=== PATIENT | male | born 1935 | race Caucasian/White ===

== ENCOUNTER 2016-08-20 15:49 | Inpatient (IN) | payer MEDICARE, OTHER ==
[2016-08-20] VITALS (7 sets, daily range): BP systolic 139–152; BP diastolic 75–82; PULSE 51–80; RESP 16–18; TEMP 97.7; O2SAT 96–98
[~2016-08-20 15:49] MED LIST: ATOR20TA15 PO; METO100T9 PO; NIFE90TA2 PO; ONETAB9 PO; PRAD75CA PO
[2016-08-20] MEDS ORDERED: MORPHINE SULFATE 4 MG/ML INJ IV PUSH ONE (16:15)
[2016-08-20] MEDS ORDERED: ONDANSETRON HCL 4 MG/2 ML VIAL IVP ONE (16:15)
[2016-08-20] MEDS ORDERED: SODIUM CHLORIDE 0.9% FLUSH 5 ML FLUSH IVF PRN (16:15)
[2016-08-20] MEDS ORDERED: ACETAMINOPHEN 325 MG TAB PO ONE (16:15)
--- NOTE | 2016-08-20 16:17 | PD ---
HPI Chief Complaint: Headache Time Seen by Provider: 15:59 Travel History International Travel<30 days: No Contact w/Intl Traveler<30days: No Traveled to known affect area: No History of Present Illness HPI The patient is a 81-year-old male who presents to the emergency department for headache. The patient states he developed a headache this morning, after awakening, when he was taking Neurontin pill. The patient states the headache started gradually, is located over the frontal aspect, was throbbing in nature. The patient went back to sleep and when he awakened the headache was worse. The onset of symptoms was approximately 7 AM. The patient denies any photophobia, diplopia, neck pain, nausea, or vomiting. The headache is waxing and waning, slightly improved now, when compared to 2-3 hours ago. The patient does have a history of previous CVA/TIA and takes Pradaxa . He denies any trauma to the head and denies any associated fever, chills, or sweats. Symptoms are moderate, slightly improved since earlier today, and no known exacerbating factors. 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) Psychiatric: No Reproductive: No Respiratory: No Immunizations Current: Yes Migraines: No Radiation Therapy: No Renal Failure: No Seizures: No Sickle Cell Disease: No Sleep Apnea: No Thyroid Disease: No Ulcer: No Past Surgical History Abdominal Surgery: Yes (APPENDECTOMY IN 3RD GRADE) AICD: No Arteriovenous Shunt: No Cardiac Surgery: No Ear Surgery: No Endocrine Surgery: No Eye Surgery: Yes (BILATERAL CATARACT EXTRACT) Genitourinary Surgery: No Gynecologic Surgery: No Insulin Pump: No Joint Replacement: No Oral Surgery: Yes (TONSILLECTOMY REMOVAL IN 3RD GRADE) Pacemaker: No Thoracic Surgery: No Other Surgery: Yes Social History Alcohol Use: No Tobacco Use: No Substance Use: No Allergies-Medications (Allergen,Severity, Reaction): Coded Allergies: Motrin (Verified Allergy, Severe, Hallucinations, 08/20/16) Penicillin (Verified Allergy, Severe, DIZZY, 08/20/16) Reported Meds & Prescriptions Reported Meds & Active Scripts Active Reported Gabapentin 300 Mg Cap 300 Mg PO TID One Daily For Men 50+ Adv (Multiple Vitamins W/ Minerals) 1 Tab Tab 1 Tab PO DAILY Metoprolol Succinate ER 24 HR (Metoprolol Succinate) 100 Mg Tab 100 Mg PO DAILY Nifedipine ER (Nifedipine) 90 Mg Tab 90 Mg PO DAILY Pradaxa (Dabigatran) 75 Mg Cap 75 Mg PO BID Atorvastatin (Atorvastatin Calcium) 20 Mg Tab 20 Mg PO DAILY Review of Systems Except as stated in HPI: all other systems reviewed are Neg General / Constitutional: No: Fever Eyes: No: Blurred Vision, Photophobia, Visual changes HENT: Positive: Headaches, No: Neck Pain Cardiovascular: No: Chest Pain or Discomfort Respiratory: No: Shortness of Breath Gastrointestinal: No: Nausea, Vomiting Musculoskeletal: No: Weakness Neurologic: Positive: Headache, Sensory Disturbance (chronic neuropathy of the lower extremities without acute changes) Physical Exam Narrative GENERAL: Awake, alert, pleasant 81-year-old male who appears his stated age and is in no acute respiratory distress. SKIN: Warm and dry. HEAD: Atraumatic. Normocephalic. EYES: Pupils equal and round. Pupils are 3 mm bilateral and reactive. EOMs are intact. Patient is able to see fingers at a distance of 2 feet without difficulty. ENT: No nasal bleeding or discharge. Mucous membranes pink and moist. NECK: Trachea midline. No JVD. No meningeal signs. CARDIOVASCULAR: Regular rate and rhythm. No murmur appreciated. RESPIRATORY: No accessory muscle use. Clear to auscultation. Breath sounds equal bilaterally. MUSCULOSKELETAL: No obvious deformities. No clubbing. No cyanosis. No edema. NEUROLOGICAL: Awake and alert. No obvious cranial nerve deficits. Motor grossly within normal limits. Normal speech. Nonfocal. No drift of the upper or lower extremities. Oriented 4. Sensation is symmetric on the upper and lower extremities to soft touch. PSYCHIATRIC: Appropriate mood and affect; insight and judgment normal. Data Data Last Documented VS Vital Signs Date Time Temp Pulse Resp B/P Pulse Ox O2 Delivery O2 Flow Rate FiO2 08/20/16 17:25 80 16 146/80 96 Room Air 08/20/16 15:58 97.7 Orders Complete Blood Count With Diff (08/20/16 16:06) Basic Metabolic Panel (Bmp) (08/20/16 16:06) Prothrombin Time / Inr (Pt) (08/20/16 16:06) Act Partial Throm Time (Ptt) (08/20/16 16:06) Ct Brain W/O Iv Contrast(Rout) (08/20/16 16:06) Ecg Monitoring (08/20/16 16:06) Iv Access Insert/Monitor (08/20/16 16:06) Oximetry (08/20/16 16:06) Sodium Chloride 0.9% Flush (Ns Flush) (08/20/16 16:15) Acetaminophen (Tylenol) (08/20/16 16:15) Ondansetron Inj (Zofran Inj) (08/20/16 16:15) Morphine Inj (Morphine Inj) (08/20/16 16:15) Type And Screen (08/20/16 16:58) Idarucizumab Inj (Praxbind Inj) (08/20/16 17:15) Labs Laboratory Tests Test 08/20/16 16:08 White Blood Count 7.4 TH/MM3 Red Blood Count 5.07 MIL/MM3 Hemoglobin 14.5 GM/DL Hematocrit 44.7 % Mean Corpuscular Volume 88.0 FL Mean Corpuscular Hemoglobin 28.6 PG Mean Corpuscular Hemoglobin 32.5 % Concent Red Cell Distribution Width 13.1 % Platelet Count 213 TH/MM3 Mean Platelet Volume 10.0 FL Neutrophils (%) (Auto) 70.0 % Lymphocytes (%) (Auto) 17.3 % Monocytes (%) (Auto) 7.8 % Eosinophils (%) (Auto) 3.8 % Basophils (%) (Auto) 1.1 % Neutrophils # (Auto) 5.1 TH/MM3 Lymphocytes # (Auto) 1.3 TH/MM3 Monocytes # (Auto) 0.6 TH/MM3 Eosinophils # (Auto) 0.3 TH/MM3 Basophils # (Auto) 0.1 TH/MM3 CBC Comment DIFF FINAL Differential Comment Prothrombin Time 11.1 SEC Prothromb Time International 1.0 RATIO Ratio Activated Partial 32.0 SEC Thromboplast Time Sodium Level 143 MEQ/L Potassium Level 3.8 MEQ/L Chloride Level 110 MEQ/L Carbon Dioxide Level 25.9 MEQ/L Anion Gap 7 MEQ/L Blood Urea Nitrogen 13 MG/DL Creatinine 1.50 MG/DL Estimat Glomerular Filtration 45 ML/MIN Rate Random Glucose 150 MG/DL Calcium Level 8.4 MG/DL MDM Medical Decision Making Medical Screen Exam Complete: Yes Emergency Medical Condition: Yes Medical Record Reviewed: Yes Interpretation(s) CT of the head reveals subacute bilateral hygroma fluid collections, subdural hematomas larger on the left than the right with a shift of midline from left-to -right of 1.1 cm. There may be an acute component on the left in the low frontal region. EKG reveals sinus bradycardia with a rate of 56. Nonspecific ST changes. Inverted T-wave in lead 3. Last Impressions Head CT 08/20/16 1606 Signed Impressions: Service Date/Time: Saturday, August 20, 2016 16:42 - CONCLUSION: Subacute bilateral hygromas fluid collections subdural hematomas larger on the left than the right with a shift of midline from left to right of 1.1 cm. There may be an acute component on the left in the low frontal region Andrea Marcial MD Laboratory Tests Test 08/20/16 16:08 White Blood Count 7.4 TH/MM3 Red Blood Count 5.07 MIL/MM3 Hemoglobin 14.5 GM/DL Hematocrit 44.7 % Mean Corpuscular Volume 88.0 FL Mean Corpuscular Hemoglobin 28.6 PG Mean Corpuscular Hemoglobin 32.5 % Concent Red Cell Distribution Width 13.1 % Platelet Count 213 TH/MM3 Mean Platelet Volume 10.0 FL Neutrophils (%) (Auto) 70.0 % Lymphocytes (%) (Auto) 17.3 % Monocytes (%) (Auto) 7.8 % Eosinophils (%) (Auto) 3.8 % Basophils (%) (Auto) 1.1 % Neutrophils # (Auto) 5.1 TH/MM3 Lymphocytes # (Auto) 1.3 TH/MM3 Monocytes # (Auto) 0.6 TH/MM3 Eosinophils # (Auto) 0.3 TH/MM3 Basophils # (Auto) 0.1 TH/MM3 CBC Comment DIFF FINAL Differential Comment Prothrombin Time 11.1 SEC Prothromb Time International 1.0 RATIO Ratio Activated Partial 32.0 SEC Thromboplast Time Sodium Level 143 MEQ/L Potassium Level 3.8 MEQ/L Chloride Level 110 MEQ/L Carbon Dioxide Level 25.9 MEQ/L Anion Gap 7 MEQ/L Blood Urea Nitrogen 13 MG/DL Creatinine 1.50 MG/DL Estimat Glomerular Filtration 45 ML/MIN Rate Random Glucose 150 MG/DL Calcium Level 8.4 MG/DL Differential Diagnosis Differential diagnosis includes migraine, tension headache, temporal arteritis, intracranial hemorrhage, subarachnoid hemorrhage, subdural hemorrhage. Narrative Course IV was established, labs were drawn and sent, and the patient was placed on cardiac telemetry monitoring and continuous pulse oximetry monitoring. CT of the brain was ordered. The patient was administered morphine and Zofran. PT/ INR and CBC were sent to lab. Platelets are unremarkable. The patient is on Pradaxa, CT does reveal subacute bilateral hygroma fluid collections, subdural hematomas, which shift of 1.1 cm and an acute on chronic component. I discussed the patient with the on-call neurosurgeon, Dr. Aguilar, who requests transfer to the intensive surgical care unit at [facility], admission to the critical care service, with consultation to the neurosurgical service. After discussion, as agreed the patient would receive Praxbind. A call was placed to the key worker for admission. I discussed the patient with Dr. Gastelum who agrees with admission. Critical Care Narrative Aggregate critical care time was 35 minutes. Time to perform other separately billable procedures was not included in the critical care time. My time did not include minutes spent treating any other patients simultaneously or on activities that did not directly contribute to the patient's treatment. The services I provided to this patient were to treat and/or prevent clinically significant deterioration that could result in: Herniation, hypoxia, anoxia, . I provided critical care services requiring my management, as noted below: Chart data review, documentation time, medication orders and management, vital sign assessments/reviewing monitor data, ordering and reviewing lab tests, ordering and interpreting/reviewing x-rays and diagnostic studies, care of the patient and discussion of the patient with the admitting physicians. Physician Communication Physician Communication I discussed the patient with Dr. Gastelum who agrees with admission. I discussed the patient with Dr. Aguilar who recommends admission to the key worker with consultation to neurosurgery. Diagnosis Primary Impression: Subdural hematoma, acute Admitting Information Admitting Physician Requests: Admit Condition: Stable Tomer Candelario MD Aug 20, 2016 16:17
[2016-08-20] MEDS ORDERED: GABA300C5 PO (16:20)
[2016-08-20 16:21] LABS: AUTOMATED NEUTROPHIL # 5.1 TH/MM3 (1.8-7.7); BASOPHIL # 0.1 TH/MM3 (0-0.2); BASOPHIL % 1.1 % (0.0-2.0); EOSINOPHIL # 0.3 TH/MM3 (0-0.4); EOSINOPHIL % 3.8 % (0.0-4.0); HEMATOCRIT 44.7 % (39.0-51.0); HEMO FLAGS DIFF FINAL; LYMPH % 17.3 % (9.0-44.0); LYMPHOCYTE # 1.3 TH/MM3 (1.0-4.8); MEAN CORPUSCULAR HEMOGLOBIN 28.6 PG (27.0-34.0); MEAN CORPUSCULAR HGB CONC 32.5 % (32.0-36.0); MONO % 7.8 % (0.0-8.0); PLATELET COUNT 213 TH/MM3 (150-450); RED BLOOD COUNT 5.07 MIL/MM3 (4.50-5.90); RED CELL DISTRIBUTION WIDTH 13.1 % (11.6-17.2); WHITE BLOOD COUNT 7.4 TH/MM3 (4.0-11.0)
[2016-08-20 16:41] LABS: POTASSIUM 3.8 MEQ/L (3.5-5.1)
[2016-08-20 16:49] LABS: BICARBONATE 25.9 MEQ/L (21.0-32.0)
--- NOTE | 2016-08-20 17:03 | RADHPO ---
EXAM DATE/TIME: 08/20/2016 16:42 [facility] COMPARISON: CT BRAIN W/O CONTRAST, August 07, 2015, 19:47. MRI BRAIN W/O CONTRAST, July 12, 2016, 19:00. INDICATIONS : Frontal headache beginning today. RADIATION DOSE: 61.22 CTDIvol (mGy) MEDICAL HISTORY : Cerebrovascular disease. SURGICAL HISTORY : Bilateral cataract extraction. ENCOUNTER: Initial ACUITY: 1 day PAIN SCALE: 6/10 LOCATION: frontal TECHNIQUE: Multiple contiguous axial images were obtained of the head. Using automated exposure control and adj ustment of the mA and/or kV according to patient size, radiation dose was kept as low as reasonably a chievable to obtain optimal diagnostic quality images. FINDINGS: There are bilateral hygromas fluid collections slightly less dense than rodgers matter closer to the gerardo p white matter. On the right this is a frontal and posterior frontal maximally 1 cm in width and on t he left larger extending from the temporal region up on to the vertex 1.5 cm in width. There is shift of the midline left to right L1 0.1 cm. Suggestion that there may be an acute component in the low f rontal region on the left there CONCLUSION: Subacute bilateral hygromas fluid collections subdural hematomas larger on the left than the right wi th a shift of midline from left to right of 1.1 cm. There may be an acute component on the left in th e low frontal region Andrea Marcial MD on August 20, 2016 at 17:00 Board Certified Radiologist. This report was verified electronically.
[2016-08-20] MEDS ORDERED: IDARUcizUMAB INJ 100 ML IV ONE (17:15)
[2016-08-20 17:23] LABS: PROTHROMBIN TIME - PATIENT 11.1 SEC (9.8-11.6)
[2016-08-20] MEDS ORDERED: ACETAMINOPHEN/HYDROcodone 325 MG/5 MG TAB PO PRN (18:45)
[2016-08-20] MEDS ORDERED: SENNOSIDES 8.6 MG TAB PO PRN (18:45)
[2016-08-20] MEDS ORDERED: niCARdipine INJ 25 MG in SODIUM CHLOR 0.9% 250 ML INJ 250 ML IV SCH (18:45)
[2016-08-20] MEDS ORDERED: SODIUM CHLORIDE 0.9% FLUSH 5 ML FLUSH IV FLUSH PRN (18:45)
[2016-08-20] MEDS: SODIUM CHLORIDE 23.4% INJ 188 MEQ in SODIUM CHLOR 0.9% 1000 ML INJ 1,000 ML IV SCH ×3 (18:45→22:22)
[2016-08-20] MEDS ORDERED: CHLORHEXIDINE GLUCONATE 2 % 1 PACK (2 CLOTHS) TOP PRN (18:45)
[2016-08-20] MEDS ORDERED: LABETALOL HCL 100 MG/20 ML VIAL IV PUSH PRN (18:45)
[2016-08-20] MEDS ORDERED: ACETAMINOPHEN 325 MG TAB PO PRN (18:45)
[2016-08-20] MEDS ORDERED: ONDANSETRON HCL 4 MG/2 ML VIAL IV PRN (18:45)
[2016-08-20] MEDS ORDERED: MISCELLANEOUS NURSING INFORMATION XX SCH (18:45)
[2016-08-20] MEDS ORDERED: RESP: ALBUTEROL 2.5 MG/IPRATROPIUM 0.5 MG NEB (PRN) INH (18:45)
--- NOTE | 2016-08-20 18:48 | HHI.HP ---
HPI Service Critical Care Medicine Primary Care Physician Milton Garcia MD Admission Diagnosis acute on chronic subdural/hygroma with shift, coagulopathy Diagnosis: (1) Subdural hematoma, acute Diagnosis: Principal (2) Cerebrovascular accident (CVA) Diagnosis: Principal (3) Left leg numbness Diagnosis: Principal (4) Hypertension Diagnosis: Principal (5) A-fib Diagnosis: Principal (6) Hyperlipidemia Diagnosis: Principal (7) Arthritis Diagnosis: Principal Chief Complaint: Headache Travel History International Travel<30 Days: No Contact w/Intl Traveler <30 Da: No Traveled to Known Affected Are: No History of Present Illness This is a 81-year-old male. Date of admission 08/20/2016. Past medical history includes prior right occipital's lobe CVA 08/09 followed by left MCA CVA likely embolic with petechial hemorrhage 1 week later. At that time patient was started on Pradaxa per cardiology. Also history of hypertension, osteoarthritis, a fibrillation and cataracts. He also had a left lower quadrant quadrantanopsia. This is resolved. He presents to [facility] secondary to gradual onset of diffuse throbbing headache this morning, after awakening, when he was taking Neurontin pill. The patient states the headache started gradually, is located over the frontal aspect, was throbbing in nature. The patient went back to sleep and when he awakened the headache was worse.. No photophobia, diplopia, neck pain, nausea, or vomiting. CT head revealed bilateral subdural hygromas with possible acute component in left frontal region. There is a 1.1 cm shift left to right. He received 5 mg of idarucizumab in the ED. Dr. Aguilar was notified and request head of ict and the patient he will consult. No focal neurological deficits noted on examination Review of Systems Constitutional: COMPLAINS OF: Fatigue, DENIES: Fever, Weight gain Endocrine: DENIES: Polydipsia, Polyuria Eyes: DENIES: Blurred vision, Vision loss, Double Vision Ears, nose, mouth, throat: DENIES: Tinnitus, Sinus Pain, Odynophagia Respiratory: DENIES: Apneas, Wheezing, Hemoptysis, Sputum production Cardiovascular: DENIES: Chest pain, Lower Extremity Edema, Claudication Gastrointestinal: DENIES: Abdominal pain Genitourinary: DENIES: Urinary incontinence, Urgency, Hematuria Musculoskeletal: COMPLAINS OF: Back pain, DENIES: Joint pain, Joint Swelling Integumentary: DENIES: Abnormal pigmentation Hematologic/lymphatic: DENIES: Bruising Immunologic/allergic: DENIES: Eczema Neurologic: COMPLAINS OF: Headache, DENIES: Localized weakness, Paresthesias, Seizures Psychiatric: DENIES: Anxiety, Confusion Past Family Social History Allergies: Coded Allergies: Motrin (Verified Allergy, Severe, Hallucinations, 08/20/16) Penicillin (Verified Allergy, Severe, DIZZY, 08/20/16) Past Medical History Cataracts History right occipital lobe CVA 08/09 History of left MCA CVA with petechial hemorrhages right lobe 08/09 Hypertension Dyslipidemia Osteo arthritis Chronic atrial fibrillation Past Surgical History T&A Cataracts Appendectomy Reported Medications Pradaxa 75 mg by mouth twice a day Atorvastatin 20 mg by mouth daily. Nifedipine 90 mg by mouth daily. Neurontin 300 mg by mouth 3 times a day Metoprolol 100 mg by mouth daily Active Ordered Medications Reviewed in EMR Family History Mother 96 of old age Father age 60 gastric ulcers Social History No tobacco, alcohol or IV drug use Physical Exam Vital Signs Vital Signs Date Time Temp Pulse Resp B/P Pulse Ox O2 Delivery O2 Flow Rate FiO2 08/20/16 18:40 51 16 152/79 96 Room Air 08/20/16 18:40 16 08/20/16 18:40 16 08/20/16 17:25 80 16 146/80 96 Room Air 08/20/16 16:35 57 18 139/76 97 Room Air 08/20/16 15:58 96 08/20/16 15:58 97.7 72 16 140/75 98 Physical Exam GENERAL: 80-year-old male, critically ill currently resting in bed in no acute distress SKIN: Warm and dry. HEAD: Atraumatic. Normocephalic. EYES: Pupils equal and round. No scleral icterus. No injection or drainage. ENT: No nasal bleeding or discharge. Mucous membranes pink and moist. NECK: Trachea midline. No JVD. CARDIOVASCULAR: Bradycardiac, IR. S1, S2 no S4. RESPIRATORY: Clear to auscultation. Breath sounds equal bilaterally. GASTROINTESTINAL: Abdomen soft, non-tender, nondistended. Hypoactive bowel sounds. MUSCULOSKELETAL: Extremities without significant peripheral edema. No obvious deformities. NEUROLOGICAL: Awake and alert. No obvious cranial nerve deficits. Motor grossly within normal limits. Five out of 5 muscle strength in the arms and legs. Decreased sensation light touch and pinprick in feet. No pronator drift. Laboratory Laboratory Tests Test 08/20/16 16:08 White Blood Count 7.4 Red Blood Count 5.07 Hemoglobin 14.5 Hematocrit 44.7 Mean Corpuscular Volume 88.0 Mean Corpuscular Hemoglobin 28.6 Mean Corpuscular Hemoglobin 32.5 Concent Red Cell Distribution Width 13.1 Platelet Count 213 Mean Platelet Volume 10.0 Neutrophils (%) (Auto) 70.0 Lymphocytes (%) (Auto) 17.3 Monocytes (%) (Auto) 7.8 Eosinophils (%) (Auto) 3.8 Basophils (%) (Auto) 1.1 Neutrophils # (Auto) 5.1 Lymphocytes # (Auto) 1.3 Monocytes # (Auto) 0.6 Eosinophils # (Auto) 0.3 Basophils # (Auto) 0.1 CBC Comment DIFF FINAL Differential Comment Prothrombin Time 11.1 Prothromb Time International 1.0 Ratio Activated Partial 32.0 Thromboplast Time Sodium Level 143 Potassium Level 3.8 Chloride Level 110 Carbon Dioxide Level 25.9 Anion Gap 7 Blood Urea Nitrogen 13 Creatinine 1.50 Estimat Glomerular Filtration 45 Rate Random Glucose 150 Calcium Level 8.4 Result Diagram: 08/20/16 1608 08/20/16 1608 Imaging Last Impressions Head CT 08/20/16 1606 Signed Impressions: Service Date/Time: Saturday, August 20, 2016 16:42 - CONCLUSION: Subacute bilateral hygromas fluid collections subdural hematomas larger on the left than the right with a shift of midline from left to right of 1.1 cm. 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 [id number] shift 1.[address] Aguilar/neurosurgery made aware. Wishes transfer to [facility] as consulted. Goal maintain systolic blood pressure less than 150. Neuro checks Keppra 500 mg IV twice a day 7 day seizure prophylaxis Holding Neurontin 300 mg 3 times a day for peripheral neuropathy. Dr. Doran is his neurologist. Follow-up head CT in a.m. 08/21 Pradaxa reversed. See heme CV: Hypertension Dyslipidemia Goal keep systolic blood pressure was 150. Home medications nifedipine 90 mg daily, metoprolol 100 mg daily for hypertension. Hold medication atorvastatin 20 mg by mouth daily for dyslipidemia. As needed Cardene drip/hydralazine/labetalol/Nitropaste to maintain systolic blood pressure less than 150. Follow up EKG/point. Resp: Nasal cannula to maintain saturations greater than equal to 92% Incentive spirometry while awake Follow-up chest x-ray GI: Patient is currently nothing by mouth Protonix for GI prophylaxis Colace/as needed Senokot for bowel regimen : Folate indicated for accurate I's and O's in a critically ill patient Endo: Sliding-scale insulin with Accu-Cheks to maintain euglycemia. Renal: Acute kidney injury Creatinine currently 1.5 . Recheck BMP in a.m. Heme: Chronic Pradaxa use Status post 5 g Praxbind in [place] ED. Follow-up coags ID: Monitor for infection Msk: PT evaluate and treat FEN: Replace electrolyte as clinically indicated Access - Utilize peripheral IV. Central line if indicated Prophylaxis - GI - Protonix - DVT - SCD/pharmacological prophylaxis contraindicated with hemorrhage Critical Care: The total critical care time was 55 minutes. Time to perform other separately billable procedures was not included in the critical care time. Code Status Full code Discussed Condition With ED physician Dr. Candelario. Patient. Care plan discussed and questions answered Problem Qualifiers (1) A-fib: Qualified Code: I48.2 - Chronic atrial fibrillation (2) Hyperlipidemia: Qualified Code: E78.5 - Hyperlipidemia, unspecified hyperlipidemia type Derrick Gastelum MD Aug 20, 2016 18:48
[2016-08-20] MEDS ORDERED: SODIUM CHLOR 0.9% 1000 ML INJ 1,000 ML IV SCH (19:00)
[2016-08-20] MEDS: DOCUSATE SODIUM 100 MG CAP PO SCH (21:00)
[2016-08-20] MEDS: levETIRAcetam INJ 500 MG in SODIUM CHLORIDE 0.9% INJ 100 ML IV SCH (21:00)
[2016-08-20] MEDS ORDERED: SODIUM CHLORIDE 0.9% FLUSH 5 ML FLUSH IV FLUSH SCH (21:00)
[2016-08-21] VITALS (8 sets, daily range): BP systolic 111–152; BP diastolic 51–73; PULSE 50–78; RESP 14–21; TEMP 96.7–98.3; O2SAT 95–100
[2016-08-21] MEDS: CHLORHEXIDINE GLUCONATE 2 % 1 PACK (2 CLOTHS) TOP SCH (04:00)
[2016-08-21 05:41] LABS: APTT (PATIENT) 24.6 SEC (24.3-30.1); PROTHROMBIN TIME - PATIENT 10.6 SEC (9.8-11.6)
[2016-08-21 05:52] LABS: ALT (GPT) 21 U/L (12-78); ANION GAP 7 MEQ/L (5-15); AST (GOT) 16 U/L (15-37); BLOOD UREA NITROGEN 12 MG/DL (7-18); CHLORIDE 110 MEQ/L (98-107); GLOMERULAR FILTRATION RATE 51 ML/MIN (>89); MAGNESIUM 2.3 MG/DL (1.5-2.5); POTASSIUM 3.9 MEQ/L (3.5-5.1); SODIUM (NA) 143 MEQ/L (136-145)
[2016-08-21 05:55] LABS: ALKALINE PHOSPHATASE 63 U/L (45-117); TOTAL BILIRUBIN ADULT 0.2 MG/DL (0.2-1.0)
[2016-08-21] MEDS: levETIRAcetam INJ 500 MG in SODIUM CHLORIDE 0.9% INJ 100 ML IV SCH ×3 (08:21→23:05)
[2016-08-21] MEDS: DOCUSATE SODIUM 100 MG CAP PO SCH ×2 (08:21→19:56)
[2016-08-21] MEDS: MORPHINE SULFATE 4 MG/ML INJ IV PRN ×2 (08:22→10:17)
--- NOTE | 2016-08-21 08:40 | RADRPT ---
EXAM DATE/TIME: 08/21/2016 04:31 [facility] COMPARISON: MRI BRAIN W/O CONTRAST, July 12, 2016, 19:00. CT BRAIN W/O CONTRAST, August 20, 2016, 16:42. INDICATIONS : Follow up right occipital stroke. RADIATION DOSE: 56.35 CTDIvol (mGy) MEDICAL HISTORY : Cerebrovascular disease. SURGICAL HISTORY : None. ENCOUNTER: Subsequent ACUITY: 3 weeks PAIN SCALE: 0/10 LOCATION: cranial TECHNIQUE: Multiple contiguous axial images were obtained of the head. Using automated exposure control and adj ustment of the mA and/or kV according to patient size, radiation dose was kept as low as reasonably a chievable to obtain optimal diagnostic quality images. FINDINGS: Today's exam is compared to the prior study. There is a stable right-sided subdural hygroma with appr oximately 9 mm of separation. There continues to be a left-sided subdural hygroma with approximately 2 cm of separation. Components of chronic and acute/subacute blood are seen in both subdural collecti ons. The acute/subacute hemorrhage components in the left subdural collection appears to be increased compared to the prior study. There continues to be a focal small epidural hematoma along the left fr ontal lobe area. The ventricles are normal in size and stable. There continues to be mass effect and midline shift to the right by approximately 1.2 cm. The posterior fossa is stable and unremarkable. T here continues to be an area of decreased density in the left occipital lobe as well as the right occ ipital lobe characteristic for some focal old infarcts. CONCLUSION: 1. Bilateral subdural hygromas/hematomas with chronic and acute/subacute blood products noted in both subdural collections, left greater than right. The acute/subacute blood products in the left subdura l hematoma appears to be increased compared to the prior exam. 2. Stable small left epidural hematoma along the left frontal lobe area. 3. There continues to be mass effect and midline shift to the right by approximately 1.2 cm. 4. Focal areas of decreased density in both occipital lobes characteristic of subacute to chronic occ ipital lobe infarct. Tye Santiago MD on August 21, 2016 at 8:28 Board Certified Radiologist. This report was verified electronically.
[2016-08-21] MEDS ORDERED: PANTOPRAZOLE SODIUM 40 MG VIAL IV SCH (09:00)
[2016-08-21] MEDS: ARTIFICIAL TEARS OPTH SOLN 15 ML BTL EACH EYE SCH ×3 (09:00→18:00)
[2016-08-21] MEDS: hydrALAZINE HCL 20 MG/ML VIAL IV PUSH PRN ×2 (10:25→13:56)
--- NOTE | 2016-08-21 10:46 | HHI.CCPN ---
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 Subsequently started on Pradaxa per cardiology. Also history of hypertension, osteoarthritis, atrial fibrillation and cataracts. He also had a left lower quadrant quadrantanopsia, now resolved. He presents to [facility] secondary to gradual onset of diffuse throbbing headache this morning, after awakening, when he was taking Neurontin pill. The patient states the headache started gradually, is located over the frontal aspect, was throbbing in nature. No photophobia, diplopia, neck pain, nausea, or vomiting. CT head revealed bilateral subdural hygromas with possible acute component in left frontal region. There is a 1.1 cm shift left to right. He received 5 mg of idarucizumab in the ED. Dr. Aguilar was notified and request director supplier quality. 08/21: Worsening headache and lethargy today. Repeat Head CT shows active/acute new blood accumulation. Off dabigatran for > 24 hours. Objective Vital Signs Date Time Temp Pulse Resp B/P Pulse Ox O2 Delivery O2 Flow Rate FiO2 08/21/16 09:26 99 08/21/16 09:22 18 08/21/16 08:00 Room Air 08/21/16 08:00 98.3 50 129/73 08/20/16 20:12 21 Result Diagram: 08/20/16 1608 08/21/16 0500 Imaging Last Impressions Head CT 08/20/16 1606 Signed Impressions: Service Date/Time: Saturday, August 20, 2016 16:42 - CONCLUSION: Subacute bilateral hygromas fluid collections subdural hematomas larger on the left than the right with a shift of midline from left to right of 1.1 cm. There may be an acute component on the left in the low frontal region Andrea Marcial MD Objective Remarks GENERAL: 80-year-old male, critically ill currently resting in bed. SKIN: Warm and dry. HEAD: Atraumatic. Normocephalic. EYES: Pupils equal and round. ENT: Mucous membranes pink and moist. NECK: Trachea midline. Airway is patent without obstruction. CARDIOVASCULAR: Bradycardiac, irreg irreg S1, S2. No JVD. RESPIRATORY: Clear, no wheezes or crackles. Breath sounds equal bilaterally. GASTROINTESTINAL: Abdomen soft, non-tender, nondistended. Active bowel sounds. Benign. MUSCULOSKELETAL: Extremities without significant peripheral edema. No obvious deformities. Well perfused. NEUROLOGICAL: Lethargic, sluggish movement, delayed speech. Motor grossly diminished. 3 out of 5 muscle strength in the arms and legs. Decreased sensation light touch and pinprick in feet. Patellar DTRs absent. 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 Rcka-zy-[id number] shift 1.[address] Aguilar/neurosurgery made aware. Wishes transfer to [facility] as consulted. Goal maintain systolic blood pressure less than 150. Neuro checks Keppra 500 mg IV twice a day 7 day seizure prophylaxis Holding Neurontin 300 mg 3 times a day for peripheral neuropathy. Dr. Doran is his neurologist. Follow-up head CT in a.m. 08/21 Pradaxa reversed. See heme. Deteriorating mental status 08/21 Larger hematoma left hemisphere with increased shift 08/21 CV: Hypertension Dyslipidemia Goal keep systolic blood pressure was 150. Home medications nifedipine 90 mg daily, metoprolol 100 mg daily for hypertension. Hold medication atorvastatin 20 mg by mouth daily for dyslipidemia. As needed Cardene drip/hydralazine/labetalol/Nitropaste to maintain systolic blood pressure less than 150. Follow up EKG/point. Resp: Nasal cannula to maintain saturations greater than equal to 92% Incentive spirometry while awake Follow-up chest x-ray GI: Patient is currently nothing by mouth Protonix for GI prophylaxis Colace/as needed Senokot for bowel regimen : Dominique to CBD indicated for accurate I's and O's in a critically ill patient Endo: Sliding-scale insulin with Accu-Cheks to maintain euglycemia. Renal: Acute kidney injury Creatinine currently 1.5 . Recheck BMP Heme: Chronic Pradaxa use Status post 5 g Praxbind in [facility]. Follow-up coags ID: Monitor for infection Msk: PT evaluate and treat FEN: Replace electrolyte as clinically indicated Access - Utilize peripheral IV. Central line if indicated Prophylaxis - GI - Protonix - DVT - SCD/pharmacological prophylaxis contraindicated with hemorrhage Overall impression: Critically ill and deteriorating neurological function. Subdural blood is increasing and requires urgent decompression. Critical care 44 mins Shaheen Acosta MD Aug 21, 2016 10:46
[2016-08-21] MEDS ORDERED: THROMBIN (TOPICAL) 5,000 UNIT VIAL ONE (10:53)
[2016-08-21] MEDS ORDERED: LIDOCAINE 1%/EPINEPHrine 1:100,000 SOLN 30 ML VIAL ONE (10:53)
--- NOTE | 2016-08-21 10:53 | PD.CONS ---
[facility] Service Neurosurg Consult Requested By Dr Gastelum Reason for Consult Subdiral hematoma Primary Care Physician Milton Garcia MD History of Present Illness This is a 81-year-old male with history of a prior right occipital's lobe infarction followed by left MCA hemorrhagic CVA 1 week later. At that time he was started on Pradaxa by cardiology, history of arterial hypertension, osteoarthritis, atrial fibrillation and cataracts. He presents to [facility] secondary to gradual onset of diffuse throbbing headaches, worsening. He reports that the the headaches started gradually, located over the frontal aspect,throbbing in nature. No seizure activity. no tobgue bitting. No incontinence of stool or urine. Denies photophobia, diplopia, neck pain, nausea , or vomiting. CT head revealed bilateral subdural hematomas with possible acute component in the left side. There is a 1.1 cm shift left to right. He received 5 mg of idarucizumab in the ED. No focal neurological deficits noted on examination. Neurosurgical consultation was requested. Review of Systems Constitutional: COMPLAINS OF: Fatigue, DENIES: Fever, Weight gain Endocrine: DENIES: Polydipsia, Polyuria Eyes: DENIES: Blurred vision, Vision loss, Double Vision Ears, nose, mouth, throat: DENIES: Tinnitus, Sinus Pain, Odynophagia Respiratory: DENIES: Apneas, Wheezing, Hemoptysis, Sputum production Cardiovascular: DENIES: Chest pain, Lower Extremity Edema, Claudication Gastrointestinal: DENIES: Abdominal pain Genitourinary: DENIES: Urinary incontinence, Urgency, Hematuria Musculoskeletal: COMPLAINS OF: Back pain, DENIES: Joint pain, Joint Swelling Integumentary: DENIES: Abnormal pigmentation Hematologic/lymphatic: DENIES: Bruising Immunologic/allergic: DENIES: Eczema Neurologic: COMPLAINS OF: Headache, DENIES: Localized weakness, Paresthesias, Seizures Psychiatric: DENIES: Anxiety, Confusion Past Family Social History Allergies: Coded Allergies: Motrin (Verified Allergy, Severe, Hallucinations, 08/20/16) Penicillin (Verified Allergy, Severe, DIZZY, 08/20/16) Past Medical History Cataracts History right occipital lobe CVA 08/09 History of left MCA CVA with petechial hemorrhages right lobe 08/09 Hypertension Dyslipidemia Osteo arthritis Chronic atrial fibrillation Past Surgical History T&A Cataracts Appendectomy Reported Medications Pradaxa 75 mg by mouth twice a day Atorvastatin 20 mg by mouth daily. Nifedipine 90 mg by mouth daily. Neurontin 300 mg by mouth 3 times a day Metoprolol 100 mg by mouth daily Active Ordered Medications Current Medications IV Flush (NS Flush) 2 ml UNSCH PRN IVF FLUSH AFTER USING IV ACCESS; Start 08/20 at 16:15 Acetaminophen (Tylenol) 650 mg ONCE ONCE PO Last administered on 08/20/16 16: 32; Start 08/20/16 at 16:15; Stop 08/20/16 at 16:16; Status DC Ondansetron HCl (Zofran Inj) 4 mg ONCE ONCE IVP Last administered on 16:31; Start 08/20/16 at 16:15; Stop 08/20/16 at 16:16; Status DC Morphine Sulfate 4 mg 4 mg ONCE ONCE IV PUSH Last administered on 08/20/16 16 :32; Start 08/20/16 at 16:15; Stop 08/20/16 at 16:16; Status DC Idarucizumab 100 ml @ 300 mls/hr ONCE ONCE IV Last administered on 08/20/16 18:24; Start 08/20/16 at 17:15; Stop 08/20/16 at 17:34; Status DC Sodium Chloride 188 meq/Sodium Chloride 1,047 ml @ 40 mls/hr Q24H IV Last administered on 08/20/16 22:22; Start 08/20/16 at 18:45 Nicardipine HCl/ Sodium Chloride (Cardene Inj/NS 250 ml Inj) 260 ml @ 0 mls/hr TITRATE IV ; Start 08/20/16 at 18:45 Hydralazine HCl (Apresoline Inj) 10 mg Q1HR PRN IV PUSH SBP>150, DBP>90 Last administered on 08/21/16 10:25; Start 08/20/16 at 18:45 Labetalol HCl 10 mg 10 mg Q1HR PRN IV PUSH SBP>150, DBP>90, HR>65; Start at 18:45 Sodium Chloride (NS 1000 ml Inj) 1,000 ml @ 84 mls/hr [id number] IV Last administered on 08/20/16 20:50; Start 08/20/16 at 19:00 IV Flush (NS Flush) 2 ml UNSCH PRN IV FLUSH FLUSH AFTER USING IV ACCESS; Start 08/20/16 at 18:45 IV Flush (NS Flush) 2 ml BID IV FLUSH Last administered on 08/20/16 21:00; Start 08/20/16 at 21:00 Acetaminophen (Tylenol) 650 mg Q6H PRN PO PAIN AND/OR FEVER >101F; Start at 18:45 Acetaminophen/ Hydrocodone Bitart ([place] 5-325 Mg) 1 tab Q4H PRN PO PAIN SCALE 1 TO 5 Last administered on 08/21/16 08:22; Start 08/20/16 at 18:45 Morphine Sulfate (Morphine Inj) 2 mg Q2H PRN IV PAIN SCALE 6 TO 10 Last administered on 08/21/16 10:17; Start 08/20/16 at 18:45 Pantoprazole Sodium (Protonix Inj) 40 mg DAILY IV Last administered on 08:21; Start 08/21/16 at 09:00 Artificial Tears (Tears Naturale Opth Soln) 1 drop TID EACH EYE ; Start at 09:00 Ondansetron HCl (Zofran Inj) 4 mg Q6H PRN IV NAUSEA OR VOMITING; Start at 18:45 Docusate Sodium (Colace) 100 mg BID PO Last administered on 08/21/16 08:21; Start 08/20/16 at 21:00 Sennosides (Senokot) 17.2 mg Q12H PRN PO CONSTIPATION; Start 08/20/16 at 18:45 Albuterol/ Ipratropium (Duoneb Neb) 1 ampule Q2HR NEB PRN INH WHEEZING; Start 08/20/16 at 18:45 Miscellaneous Information 1 [id number] Last administered on 08/20/16 18:45; Start 08/20/16 at 18:45 Chlorhexidine Gluconate (Chlorhexidine 2% Cloth) 3 pack Taper DAILY@04 TOP ; Start 08/21/16 at 04:00; Stop 08/17/17 at 03:59 Chlorhexidine Gluconate 3 pack 3 pack UNSCH PRN TOP HYGIENIC CARE; Start at 18:45 Levetriacetam/ Sodium Chloride (Keppra Inj/NS Inj) 105 ml @ 420 mls/hr Q12HR IV Last administered on 08/21/16t 08:21; Start 08/20/16 at 21:00; Stop 08/27/16 at 20:59 Family History Mother 96 of old age Father age 60 gastric ulcers Social History No tobacco, alcohol or IV drug use Physical Exam Vital Signs Vital Signs Date Time Temp Pulse Resp B/P Pulse Ox O2 Delivery O2 Flow Rate FiO2 08/21/16 09:26 99 08/21/16 09:22 18 08/21/16 08:27 18 08/21/16 08:00 100 Room Air 08/21/16 08:00 98.3 50 18 129/73 100 08/21/16 04:00 97.9 50 16 116/58 100 08/21/16 00:00 98.1 52 21 111/59 100 08/20/16 20:58 65 18 96 08/20/16 20:55 66 18 151/80 96 Room Air 08/20/16 20:12 Room Air 21 08/20/16 19:45 98 21 08/20/16 19:40 68 18 148/82 96 Room Air 08/20/16 18:40 51 16 152/79 96 Room Air 08/20/16 18:40 16 08/20/16 18:40 16 08/20/16 17:25 80 16 146/80 96 Room Air 08/20/16 16:35 57 18 139/76 97 Room Air 08/20/16 15:58 96 08/20/16 15:58 97.7 72 16 140/75 98 Physical Exam The patient is alert, awake and oriented to time, place and person. Speech shows mild word finfing difficulties with partial expressive aphasia. Cranial nerve examination demonstrates the pupils to be equal, round, and reactive to light. Extra-ocular movements are intact. Facial motor and sensory function are normal and symmetrical. Gross hearing is decreased bilaterally. The uvula is midline and elevates symmetrically with the soft palate. Sternocleidomastoid and trapezius muscles have normal and symmetrical strength. Other cranial nerves are intact. Neck is soft and supple. Cervical spine has a good but decreased range of motion in anterior flexion, extension, lateral bending, and rotation without pain. There is no tenderness to palpation to the spinous processes or paraspinal muscles. Muscle testing reveals normal bulk and tone overall without rigidity, spasticity , fasciculations, or atrophy. Muscle strength is 5/5 in all muscle groups of both upper extremities including deltoid, biceps, triceps, brachioradialis, wrist extension and waiter/waitress cabin class. In the lower extremities, strength is 5/5 in both iliopsoas, quadriceps, hamstrings, plantar flexion, dorsiflexion, and extensor hallicus longus. Sensory examination is intact to light touch and sharp/dull discrimination in both the upper and lower extremities, symmetrically. Deep tendon reflexes are 2+ and symmetrical in the biceps, triceps, and brachioradialis, bilaterally, in the upper extremities. In the lower extremities , the patellar and Achilles are 2+, bilaterally. There is a bilateral plantar flexion response. Hoffmanns sign is negative. There is no clonus or other abnormal reflexes noted. Cerebellar examination is intact to [id number] test, rapid rhythmic alternating motion. There is no dysmetria, dysdiadochokinesia, truncal ataxia, or tremor. Laboratory Laboratory Tests Test 08/20/16 08/20/16 08/20/16 08/21/16 16:08 19:50 22:52 01:47 White Blood Count 7.4 Red Blood Count 5.07 Hemoglobin 14.5 Hematocrit 44.7 Mean Corpuscular Volume 88.0 Mean Corpuscular Hemoglobin 28.6 Mean Corpuscular Hemoglobin 32.5 Concent Red Cell Distribution Width 13.1 Platelet Count 213 Mean Platelet Volume 10.0 Neutrophils (%) (Auto) 70.0 Lymphocytes (%) (Auto) 17.3 Monocytes (%) (Auto) 7.8 Eosinophils (%) (Auto) 3.8 Basophils (%) (Auto) 1.1 Neutrophils # (Auto) 5.1 Lymphocytes # (Auto) 1.3 Monocytes # (Auto) 0.6 Eosinophils # (Auto) 0.3 Basophils # (Auto) 0.1 CBC Comment DIFF FINAL Differential Comment Prothrombin Time 11.1 Prothromb Time International 1.0 Ratio Activated Partial 32.0 Thromboplast Time Sodium Level 143 140 Potassium Level 3.8 Chloride Level 110 Carbon Dioxide Level 25.9 Anion Gap 7 Blood Urea Nitrogen 13 Creatinine 1.50 Estimat Glomerular Filtration 45 Rate Random Glucose 150 Calcium Level 8.4 Troponin I LESS THAN 0.02 LESS THAN 0.02 Serum Osmolality 302 Blood Type AB POSITIVE Antibody Screen NEGATIVE Blood Bank Comment Test 08/21/16 05:00 Prothrombin Time 10.6 Prothromb Time International 1.0 Ratio Activated Partial 24.6 Thromboplast Time Sodium Level 143 Potassium Level 3.9 Chloride Level 110 Carbon Dioxide Level 26.0 Anion Gap 7 Blood Urea Nitrogen 12 Creatinine 1.34 Estimat Glomerular Filtration 51 Rate Random Glucose 98 Serum Osmolality 301 Calcium Level 8.4 Phosphorus Level 3.0 Magnesium Level 2.3 Total Bilirubin 0.2 Aspartate Amino Transf 16 (AST/SGOT) Alanine Aminotransferase 21 (ALT/SGPT) Alkaline Phosphatase 63 Total Protein 6.5 Albumin 3.0 Result Diagram: 08/20/16 1608 08/21/16 0500 Imaging Last Impressions Head CT 08/21/16 0600 Signed Impressions: Service Date/Time: Sunday, August 21, 2016 04:31 - CONCLUSION: 1. Bilateral subdural hygromas/hematomas with chronic and acute/subacute blood products noted in both subdural collections, left greater than right. The acute/subacute blood products in the left subdural hematoma appears to be increased compared to the prior exam. 2. Stable small left epidural hematoma along the left frontal lobe area. 3. There continues to be mass effect and midline shift to the right by approximately 1.2 cm. 4. Focal areas of decreased density in both occipital lobes characteristic of subacute to chronic occipital lobe infarct. Tye Santiago MD Attending Statement Bilateral acute to subacute subdural hematomas. I have reviewed his clinical and radiological findings. neuro checks in a serial fashion. The left has 2cm in thickness with 1.5cm of midline shift. It appears significantly larger than his prior MRI. Ther alternatives of treatment have been discussed. Recommend surgicval evacuation via mary hole with possible craniotomy. We have discussed the details including the [id number] details of the surgical procedure, its indications, alternatives, risks, and potential complications. Risks and potential complications include, but are not limited to, infection, blood loss, CSF leak, partial or complete loss of sight in one or both eyes, paresis, paralysis, permanent pain or difficulty swallowing, loss of bowel or bladder function, complications from anesthesia, blood clot, stroke, myocardial infarction, or even . Respiratory. Nasal cannula to maintain saturations greater than equal to 92%. pulmonary toilette, nasotracheal suction, and breathing treatments with nebulizers. Peripheral neuropathy. Continue gabapentin History of right occipital CVA, embolic left MCA CVA 08/09 with right occipital petechial hemorrhage. HOLD ANTICOAGULATION FOR NOW Hypertension keep systolic blood pressure was 150. Continue nifedipine 90 mg daily, metoprolol 100 mg daily for hypertension. Hold medication atorvastatin 20 mg by mouth daily for dyslipidemia. As needed Cardene to maintain systolic blood pressure less than 150. Chronic Pradaxa anticoagulation. Status post 5 g Praxbind in [facility]. Follow-up coags PT and OT Nutrition. NPO Renal. monitor closely urine output, BUN and creatinine Endocrine. Monitor serial Acu checks and SSI as needed in detail ID monitor for signs of infection Protonix for stress ulcer prophylaxis Bhanu frank and SCD's for DVT prophylaxis He understands that he is at increased surgical risk. Discussed wit his Lev Aguilar MD Aug 21, 2016 10:53
[2016-08-21] MEDS ORDERED: MICROFIBRILLAR COLLAGEN HEMOSTAT 70 X 35 MM BANDAGE ONE (10:54)
[2016-08-21] MEDS ORDERED: GELFOAM SIZE 100 ONE ×2 (10:54→11:04)
[2016-08-21] MEDS ORDERED: ceFAZolin INJ 1,000 MG VIAL ONE (10:54)
[2016-08-21] MEDS ORDERED: GENTAMICIN SULFATE 80 MG/2 ML VIAL ONE (10:54)
[2016-08-21] MEDS: NS + KCL 20 MEQ INJ 1,000 ML IV SCH ×2 (11:14→19:59)
[2016-08-21] MEDS ORDERED: CALCIUM GLUCONATE 10% 1 GM/10 ML VIAL IV PRN (11:15)
[2016-08-21] MEDS ORDERED: POTASSIUM CHLOR 20 MEQ PREMIX 100 ML IV PRN (11:15)
[2016-08-21] MEDS ORDERED: MORPHINE SULFATE 4 MG/ML INJ IV PUSH PRN ×2 (11:15)
[2016-08-21] MEDS ORDERED: ACETAMINOPHEN 325 MG TAB PO PRN (11:15)
[2016-08-21] MEDS ORDERED: BISACODYL 10 MG SUPP PR PRN (11:15)
[2016-08-21] MEDS ORDERED: MAGNESIUM SULFATE INJ 4 GM in SODIUM CHLORIDE 0.9% INJ 100 ML IV PRN (11:15)
[2016-08-21] MEDS ORDERED: ONDANSETRON HCL 4 MG/2 ML VIAL IV PRN (11:15)
[2016-08-21] MEDS ORDERED: ACETAMINOPHEN/HYDROcodone 325 MG/10 MG TAB PO PRN ×2 (11:15)
[2016-08-21] MEDS ORDERED: SODIUM CHLORIDE 0.9% FLUSH 5 ML FLUSH IVF PRN (11:15)
[2016-08-21] MEDS ORDERED: levETIRAcetam 500 MG/5 ML VIAL IV ONE (11:25)
[2016-08-21] MEDS ORDERED: ONDANSETRON HCL 4 MG/2 ML VIAL IV PUSH ONE (12:00)
[2016-08-21] MEDS ORDERED: PROPOFOL 200 MG/20 ML AMP IV ONE (12:00)
[2016-08-21] MEDS ORDERED: ePHEDrine/NS 25 MG/5 ML SYR IV ONE (12:00)
[2016-08-21] MEDS ORDERED: SODIUM CHLOR 0.9% 1000 ML INJ 1,000 ML IV ONE (12:00)
[2016-08-21] MEDS ORDERED: PHENYLEPH/NS 1000 MCG/10 ML SYR IV ONE (12:00)
[2016-08-21] MEDS ORDERED: SUGAMMADEX SODIUM 200 MG/2 ML VIAL IV PUSH ONE ×2 (12:15)
[2016-08-21] MEDS ORDERED: fentaNYL CITRATE 250 MCG/5 ML AMP ONE (12:48)
--- NOTE | 2016-08-21 13:02 | EKG ---
Date Performed: 08/20/2016 Time Performed: 16:08:08 PTAGE: 81 years EKG: Sinus bradycardia Compared to previous tracing Sinus rhythm has replaces atrial fibrillation Borderline ECG PREVIOUS TRACING : 08/12/2015 11.25 DOCTOR: Brian Curiel Interpretating Date/Time 08/21/2016 13:00:26
--- NOTE | 2016-08-21 13:06 | PD.OP ---
Operative Report Date of Surgery: Aug 21, 2016 Preoperative Diagnosis: Bilateral subdural hematomas Postoperative Diagnosis: Bilateral subdural hematomas Procedure: 1. Left frontal mary hole evacuation of subdural hematoma 2. right frontal mary hole evacuation of subdural hematoma Surgeon: Lev Aguilar Telephone Plant Power Operator(s): Shaka Operation and Findings: INDICATIONS FOR THE PROCEDURE Mr Spencer is a 81 year-old male who presented with intractable headaches and mild aphasia. He was found to have bilateral aubdural hematomas and midline shift greater than 15mm. He was anticoagulated with Pradaxa, which was reverted in the ER. His speech was getting wors. Surgical decompression was indicated. The [id number] details of the procedure, indications, alternatives, risks and potential complications were fully discussed with the patient. The patient fully understood. All his questions were answered. No guarantees were given. The patient voiced requesting the procedure and provided informed consents. He was offered the alternative of delaying the procedure and continuing with nonsurgical management DETAILS OF THE SURGICAL PROCEDURE Following the induction of general anesthesia, endotracheal intubation was performed. A Dominique catheter, bilateral ZACHARY hose and sequential compression devices were placed and kept throughout the procedure. The patient was positioned supine on a 3080 table with the head in a neutral position on a gel doughnut. All pressure points were padded with eggcrate mattress. The frontal regions were prepped and draped in the usual sterile fashion. A small incision was outlined on the frontal region bilaterally, approximately 3 cm lateral to the midline behind the hairline. The incisions were infiltrated with 1% lidocaine with epinephrine 1:100,000 dilution. A small skin incision was made bilaterally with a #10 blade down to the level of the periosteum. Small bleeders were coagulated with a bipolar. A Weitlaner self-retaining retractor was placed in that area. The Midas Jacob was brought to the field and used to make the mary holes. The dura was coagulated with the bipolar in a cruciform fashion and opened with a 15 blade. The subdural space was entered bilaterally. large bilateral subdural hematomas were then evacuated. Specimen were sent to the lab for hystopathological examination. The subdural space was irrigated with saline bilaterally. A subdural drain was left in the subdural space bilaterally and externalized through separate stab incisions. The incisions were thoroughly irrigated. The closure was performed in layers. 3-0 Vicryl with interrupted sutures were used to close the galea. [place] were applied to the skin. A sterile dressing was placed bilaterally. At the end of the procedure, the sponge, needle and instrument counts were all correct. Estimated blood loss was less than minimal. No blood transfusion was given. No intraoperative complications occurred. The patient was then extubated and transferred to the recovery room in a stable condition. Lev Aguilar MD Aug 21, 2016 13:06
[2016-08-21] MEDS ORDERED: DO NOT ADM ANY ANTICOAGULANT DRUGS XX PRN (13:15)
[2016-08-21] MEDS: SODIUM CHLORIDE 0.9% FLUSH 5 ML FLUSH IVF SCH (19:56)
[2016-08-21] MEDS: ceFAZolin 2 GM PREMIX 50 ML IV SCH (19:56)
[2016-08-22] VITALS (7 sets, daily range): BP systolic 130–155; BP diastolic 47–76; PULSE 56–70; RESP 14–20; TEMP 97.1–99.1; O2SAT 94–98
[2016-08-22] MEDS: CHLORHEXIDINE GLUCONATE 2 % 1 PACK (2 CLOTHS) TOP SCH (04:00)
[2016-08-22] MEDS: NS + KCL 20 MEQ INJ 1,000 ML IV SCH (04:16)
[2016-08-22] MEDS: ceFAZolin 2 GM PREMIX 50 ML IV SCH ×2 (04:16→12:00)
[2016-08-22 04:38] LABS: AUTOMATED NEUTROPHIL # 9.9 TH/MM3 (1.8-7.7); BASOPHIL % 0.4 % (0.0-2.0); EOSINOPHIL % 0.1 % (0.0-4.0); HEMATOCRIT 37.6 % (39.0-51.0); HEMO FLAGS DIFF FINAL; LYMPH % 9.2 % (9.0-44.0); LYMPHOCYTE # 1.1 TH/MM3 (1.0-4.8); MEAN CELL VOLUME 88.4 FL (80.0-100.0); MEAN CORPUSCULAR HEMOGLOBIN 28.6 PG (27.0-34.0); MEAN CORPUSCULAR HGB CONC 32.3 % (32.0-36.0); NEUT % 83.3 % (16.0-70.0); PLATELET COUNT 187 TH/MM3 (150-450); RED BLOOD COUNT 4.25 MIL/MM3 (4.50-5.90); RED CELL DISTRIBUTION WIDTH 13.9 % (11.6-17.2); WHITE BLOOD COUNT 11.9 TH/MM3 (4.0-11.0)
[2016-08-22 04:47] LABS: BICARBONATE 22.4 MEQ/L (21.0-32.0); POTASSIUM 4.5 MEQ/L (3.5-5.1)
[2016-08-22] MEDS: PANTOPRAZOLE SOD 40 MG DELAYED RELEASE TAB PO SCH (08:24)
[2016-08-22] MEDS: SODIUM CHLORIDE 0.9% FLUSH 5 ML FLUSH IVF SCH ×2 (08:24→20:26)
[2016-08-22] MEDS: hydrALAZINE HCL 20 MG/ML VIAL IV PUSH PRN (08:24)
[2016-08-22] MEDS: ARTIFICIAL TEARS OPTH SOLN 15 ML BTL EACH EYE SCH ×3 (08:24→18:00)
[2016-08-22] MEDS: DOCUSATE SODIUM 100 MG CAP PO SCH ×2 (08:24→20:26)
[2016-08-22] MEDS: PANTOPRAZOLE SODIUM 40 MG VIAL IVP SCH (09:00)
[2016-08-22] MEDS: amLODIPine BESYLATE 5 MG TAB PO SCH (10:17)
--- NOTE | 2016-08-22 11:02 | HHI.NSPN ---
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 At that time he was started on Pradaxa by cardiology, history of arterial hypertension, osteoarthritis, atrial fibrillation and cataracts. He presents to [facility] secondary to gradual onset of diffuse throbbing headaches, worsening. He reports that the the headaches started gradually, located over the frontal aspect,throbbing in nature. No seizure activity. no tongue bitting. No incontinence of stool or urine. Denies photophobia, diplopia, neck pain, nausea , or vomiting. CT head revealed bilateral subdural hematomas with possible acute component in the left side. There is a 1.1 cm shift left to right. He received 5 mg of idarucizumab in the ED. No focal neurological deficits noted on examination. Neurosurgical consultation was requested. 08/22: POD 1 s/p bilat mary holes for evacuation of subdural hematoma. Alert, awake but has some expressive dysphasia, able to follow commands (Mary Winkler) Labs, Micro, & Vital Signs Results Date Time Temp Pulse Resp B/P Pulse Ox O2 Delivery O2 Flow Rate FiO2 08/22/16 08:00 97.9 70 18 145/61 95 Automatic Cuff 08/22/16 08:00 95 Nasal Cannula 2.00 08/22/16 04:00 99.1 56 14 95 130/48 08/22/16 00:00 98.6 63 15 97 130/47 08/21/16 20:42 97 08/21/16 20:00 98.1 78 21 98 152/54 08/21/16 19:00 97 Nasal Cannula 2.00 08/21/16 16:00 97.1 69 14 134/64 96 142/58 08/21/16 14:00 95 Nasal Cannula 2.00 08/21/16 14:00 96.7 70 16 130/63 95 138/51 08/21/16 13:30 73 15 94 Nasal Cannula 3 138/47 08/21/16 13:15 68 16 116/50 93 Nasal Cannula 3 133/46 08/21/16 13:00 67 15 116/57 92 Nasal Cannula 3 130/49 08/21/16 12:52 Nasal Cannula 3 08/21/16 12:50 132/47 08/21/16 12:45 67 14 107/59 95 Simple Mask 10 08/21/16 12:33 97.5 67 12 118/63 93 Simple Mask 10 08/22/16 07:00 Intake Total 3309 ml Output Total 2420 ml Balance 889 ml Constitutional Vital Signs Date Time Temp Pulse Resp B/P Pulse Ox O2 Delivery O2 Flow Rate FiO2 08/22/16 08:00 97.9 70 18 145/61 95 Automatic Cuff 08/22/16 08:00 95 Nasal Cannula 2.00 08/22/16 04:00 99.1 56 14 95 130/48 08/22/16 00:00 98.6 63 15 97 130/47 08/21/16 20:42 97 08/21/16 20:00 98.1 78 21 98 152/54 08/21/16 19:00 97 Nasal Cannula 2.00 08/21/16 16:00 97.1 69 14 134/64 96 142/58 08/21/16 14:00 95 Nasal Cannula 2.00 08/21/16 14:00 96.7 70 16 130/63 95 138/51 08/21/16 13:30 73 15 94 Nasal Cannula 3 138/47 08/21/16 13:15 68 16 116/50 93 Nasal Cannula 3 133/46 08/21/16 13:00 67 15 116/57 92 Nasal Cannula 3 130/49 08/21/16 12:52 Nasal Cannula 3 08/21/16 12:50 132/47 08/21/16 12:45 67 14 107/59 95 Simple Mask 10 08/21/16 12:33 97.5 67 12 118/63 93 Simple Mask 10 08/22/16 07:00 Intake Total 3309 ml Output Total 2420 ml Balance 889 ml (Mary Winkler) Review of Systems/Exam Exam Mr. Hope is alert, oriented to self. He is expressively dysphasic. Difficulty naming objects. He is able to follow commands. Wound is clean and dry with dressing. Bilateral TANYA drains to suction Cranial nerve examination demonstrates the pupils to be equal, round, and reactive to light. Extra-ocular movements are intact with normal convergence. Facial motor function appears normal and symmetrical. Neck is soft and supple. Motor: moved all four extremities 3-4/5 Bilateral plantar flexion response. Hoffmanns sign is negative. Cerebellar examination is limited due to the patient condition, but no obvious deficits are noted. (Mary Winkler) Medications Current Medications Current Medications Medications (Trade) Dose Ordered Sig/Alejandro Route PRN Reason Start Time Stop Time Status Last Admin Dose Admin Nicardipine HCl/ Sodium Chloride (Cardene Inj/NS 250 ml Inj) 260 ml @ 0 mls/hr TITRATE IV 08/20/16 18:45 Hydralazine HCl (Apresoline Inj) 10 mg Q1HR PRN IV PUSH SBP>150, DBP>90 08/20/16 18:45 08/22/16 08:24 Labetalol HCl (Trandate Inj) 10 mg Q1HR PRN IV PUSH SBP>150, DBP>90, HR>65 08/20/16 18:45 Morphine Sulfate (Morphine Inj) 2 mg Q2H PRN IV PAIN SCALE 6 TO 10 08/20/16 18:45 08/21/16 10:17 Artificial Tears (Tears Naturale Opth Soln) 1 drop TID EACH EYE 08/21/16 09:00 08/22/16 08:24 Ondansetron HCl (Zofran Inj) 4 mg Q6H PRN IV NAUSEA OR VOMITING 08/20/16 18:45 Sennosides (Senokot) 17.2 mg Q12H PRN PO CONSTIPATION 08/20/16 18:45 Miscellaneous Information 1 Q361D XX 08/20/16 18:45 08/20/16 18:45 Chlorhexidine Gluconate (Chlorhexidine 2% Cloth) 3 pack Taper DAILY@04 TOP 08/21/16 04:00 08/17/17 03:59 08/22/16 04:00 Chlorhexidine Gluconate 3 pack 3 pack UNSCH PRN TOP HYGIENIC CARE 08/20/16 18:45 Potassium Chloride/Sodium Chloride (NS + KCl 20 Meq Inj) 1,000 ml @ 100 mls/hr Q10H IV 08/21/16 11:14 08/22/16 04:16 IV Flush (NS Flush) 2 ml UNSCH PRN IVF FLUSH AFTER USING IV ACCESS 08/21/16 11:15 IV Flush 2 ml 2 ml BID IVF 08/21/16 21:00 08/22/16 08:24 Cefazolin Sodium/ Dextrose 50 ml @ 100 mls/hr Q8H IV 08/21/16 20:00 08/22/16 12:29 08/22/16 04:16 Levetriacetam/ Sodium Chloride (Keppra Inj/NS Inj) 105 ml @ 400 mls/hr Q12H IV 08/21/16 12:00 08/21/16 23:05 Bisacodyl (Dulcolax Supp) 10 mg DAILY PRN NM CONSTIPATION 08/21/16 11:15 Docusate Sodium (Colace) 100 mg BID PO 08/21/16 21:00 08/22/16 08:24 Pantoprazole Sodium (Protonix) 40 mg DAILY PO 08/22/16 09:00 08/22/16 08:24 Pantoprazole Sodium (Protonix Inj) 40 mg DAILY IVP 08/22/16 09:00 Ondansetron HCl (Zofran Inj) 4 mg Q6H PRN IV NAUSEA OR VOMITING 08/21/16 11:15 Calcium Gluconate 1 gm 1 gm UNSCH PRN IV SEE LABEL COMMENTS 08/21/16 11:15 Potassium Chloride 100 ml @ 50 mls/hr UNSCH PRN IV POTASSIUM LESS THAN 4 08/21/16 11:15 Magnesium Sulfate/ Sodium Chloride (Magnesium Sulfate Inj/NS Inj) 108 ml @ 108 mls/hr UNSCH PRN IV MAGNESIUM LESS THAN 2 08/21/16 11:15 Acetaminophen/ Hydrocodone Bitart ([place] 10-325 Mg) 1 tab Q4H PRN PO PAIN SCALE 1 TO 5 08/21/16 11:15 Acetaminophen/ Hydrocodone Bitart ([place] 10-325 Mg) 2 tab Q4H PRN PO PAIN SCALE 6 TO 10 08/21/16 11:15 Morphine Sulfate (Morphine Inj) 2 mg Q2H PRN IV PUSH PAIN SCALE 1 TO 6 08/21/16 11:15 Morphine Sulfate (Morphine Inj) 4 mg Q2H PRN IV PUSH PAIN SCALE 7 TO 10 08/21/16 11:15 Acetaminophen (Tylenol) 650 mg Q4H PRN PO TEMPERATURE > 101.5 F 08/21/16 11:15 Miscellaneous Information ALL NURSING DEPARTME... UNSCH PRN XX SEE LABEL COMMENTS 08/21/16 13:15 08/22/16 13:14 Amlodipine Besylate (Norvasc) 5 mg DAILY PO 08/22/16 10:00 08/22/16 10:17 (Mary Winkler) Medical Decision Making MDM Remarks 81 y/o male presented with diffuse throbbing headaches, CT head revealed bilateral subdural hematomas with a 1.1 cm shift left to right s/p bilateral mary hole for evacuation of subdural hematoma 08/21/16 (Mary Winkler) Plan Plan Remarks follow up CT Head tomorrow am, cont serial neuro checks keep b/l TANYA drain bulbs to suction IS every hour ok PT OOB nonchemical DVT proph in view of ICH Protonix for stress ulcer proph (Mary Winkler) Attending Statement The exam, history, and the medical decision-making described in the above note were completed with the assistance of the mid-level provider. I reviewed and agree with the findings presented. I attest that I had a [id number] encounter with the patient on the same day, and personally performed and documented my assessment and findings in the medical record. (Lev Aguilar MD) Mary Winkler Aug 22, 2016 11:02 Lev Aguilar MD Aug 23, 2016 11:39
--- NOTE | 2016-08-22 11:15 | HHI.CCPN ---
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 Subsequently started on Pradaxa per cardiology. Also history of hypertension, osteoarthritis, atrial fibrillation and cataracts. He also had a left lower quadrant quadrantanopsia, now resolved. He presents to [facility] secondary to gradual onset of diffuse throbbing headache this morning, after awakening, when he was taking Neurontin pill. The patient states the headache started gradually, is located over the frontal aspect, was throbbing in nature. No photophobia, diplopia, neck pain, nausea, or vomiting. CT head revealed bilateral subdural hygromas with possible acute component in left frontal region. There is a 1.1 cm shift left to right. He received 5 mg of idarucizumab in the ED. Dr. Aguilar was notified and request law office receptionist. 08/21: Worsening headache and lethargy today. Repeat Head CT shows active/acute new blood accumulation. Off dabigatran for > 24 hours. 08/22: Underwent bilateral bur holes on 08/[address] Aguilar. Sitting up in bed this morning. Moving all 4 extremity is however continues to have speech disturbance. Tolerated by mouth diet. Objective Vital Signs Date Time Temp Pulse Resp B/P Pulse Ox O2 Delivery O2 Flow Rate FiO2 08/22/16 08:00 97.9 70 18 145/61 95 Automatic Cuff 08/22/16 08:00 Nasal Cannula 2.00 08/20/16 20:12 21 Intake and Output 08/21/16 08/21/16 08/22/16 08:00 16:00 00:00 Intake Total 748 ml 1000 ml 1321 ml Output Total 900 ml 1260 ml 650 ml Balance -152 ml -260 ml 671 ml Result Diagram: 08/22/16 0420 08/22/16 0420 Imaging Last Impressions Head CT 08/20/16 1606 Signed Impressions: Service Date/Time: Saturday, August 20, 2016 16:42 - CONCLUSION: Subacute bilateral hygromas fluid collections subdural hematomas larger on the left than the right with a shift of midline from left to right of 1.1 cm. There may be an acute component on the left in the low frontal region Andrea Marcial MD Objective Remarks GENERAL: 80-year-old male, critically ill currently resting in bed. SKIN: Warm and dry. HEAD: Atraumatic. Normocephalic. EYES: Pupils equal and round. ENT: Mucous membranes pink and moist. NECK: Trachea midline. Airway is patent without obstruction. CARDIOVASCULAR: Bradycardiac, irreg irreg S1, S2. No JVD. RESPIRATORY: Clear, no wheezes or crackles. Breath sounds equal bilaterally. GASTROINTESTINAL: Abdomen soft, non-tender, nondistended. Active bowel sounds. Benign. MUSCULOSKELETAL: Extremities without significant peripheral edema. No obvious deformities. Well perfused. NEUROLOGICAL: Awake and alert, following commands, delayed speech. Motor grossly diminished. 3 out of 5 muscle strength in the arms and legs. A/P Assessment and Plan Neuro/Psych: Bilateral acute to subacute hygromas s/p bilateral mary hole 08/21 Peripheral neuropathy History of right occipital CVA 08/09 History of likely embolic left MCA CVA 08/09 with right occipital petechial hemorrhage Cataract CT head 08/20 revealed bilateral subdural hygromas/possible likely low left frontal component. [id number] shift 1.[address] Aguilar/neurosurgery Goal maintain systolic blood pressure less than 150. Neuro checks Keppra 500 mg IV twice a day 7 day seizure prophylaxis Holding Neurontin 300 mg 3 times a day for peripheral neuropathy. Dr. Doran is his neurologist. Pradaxa reversed. See heme. Deteriorating mental status 08/21, Larger hematoma left hemisphere with increased shift 08/21 - underwent bilateral mary holes on 08/[address] Aguilar CV: Hypertension Dyslipidemia Goal keep systolic blood pressure was 150. Home medications nifedipine 90 mg daily, metoprolol 100 mg daily for hypertension. Hold medication atorvastatin 20 mg by mouth daily for dyslipidemia. As needed Cardene drip/hydralazine/labetalol/Nitropaste to maintain systolic blood pressure less than 150. Added Norvasc 5 mg by mouth daily. Start metoprolol 25 mg by mouth 4 times a day on 08/22. Resp: Nasal cannula to maintain saturations greater than equal to 92% Incentive spirometry while awake GI: Advance PO diet as tolerated Protonix for GI prophylaxis Colace/as needed Senokot for bowel regimen : Dominique to CBD indicated for accurate I's and O's Endo: Sliding-scale insulin with Accu-Cheks to maintain euglycemia. Renal: Acute kidney injury Strict intake output, monitor and replete electro lites, follow BUN/creatinine Heme: Chronic Pradaxa use Status post 5 g Praxbind in [place] ED. Follow-up coags ID: Monitor for infection Msk: PT evaluate and treat FEN: Replace electrolyte as clinically indicated Access - Utilize peripheral IV. Central line if indicated Prophylaxis - GI - Protonix - DVT - SCD/pharmacological prophylaxis contraindicated with hemorrhage We'll consult hospitalist tomorrow for further medical management. Critical care will be signing off. Being followed by neurosurgery. Ken Oliveira MD Aug 22, 2016 11:15
[2016-08-22] MEDS: levETIRAcetam INJ 500 MG in SODIUM CHLORIDE 0.9% INJ 100 ML IV SCH (12:00)
[2016-08-22] MEDS ORDERED: hydrALAZINE HCL 20 MG/ML VIAL IV PUSH PRN (12:15)
[2016-08-22] MEDS ORDERED: LABETALOL HCL 100 MG/20 ML VIAL IV PUSH PRN (12:15)
[2016-08-22] MEDS: METOPROLOL TARTRATE 25 MG TAB PO SCH ×2 (14:11→18:00)
[2016-08-22] MEDS ORDERED: NS + KCL 20 MEQ INJ 1,000 ML IV SCH (14:15)
--- NOTE | 2016-08-22 16:20 | PD.CONS ---
HPI Service [place] [facility] Consult Requested By Dr. 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 Patient also with history of atrial fibrillation, hyperlipidemia, CKD III. After second stroke, patient was started on Pradaxa per cardiology once cleared by neurology. After prior strokes, he did have some residual left lower quadrant quadrantanopsia which had resolved. There was also some residual expressive aphasia as well as chronic numbness and tingling in the left lower extremity that was being monitored per Dr. Vasquez. Patient initially presented to the [facility] secondary to gradual onset of diffuse, throbbing headache that started after he woke up. There was no photophobia, no diplopia, no neck pain, no nausea no vomiting. A CT of the head was completed that it revealed bilateral subdural hygromas with possible acute component and left frontal region. There was a 1.1 cm shift left to right. He received 5 mg of idarucizumab in the ED. Dr. Aguilar was notified, patient admitted under vice president business development services to the intensive surgical care unit. On 08/21, patient developed worsening headache and lethargy, repeat CT showed active acute new blood accumulation. Patient underwent bilateral mary holes for Dr. Aguilar. Patient has expressive aphasia which is more pronounced on on admission. No other focal deficits. He tolerated procedure well, he has [address] Blood pressure has been well controlled. Patient has been resumed on a diet, there is no trouble swallowing. He has no complaints, no headache. Hospitalist services are requested for medical management. 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 Past Surgical History T&A Cataracts Appendectomy Reported Medications Reported Meds & Active Scripts Active Reported Gabapentin 300 Mg Cap 300 Mg PO TID One Daily For Men 50+ Adv (Multiple Vitamins W/ Minerals) 1 Tab Tab 1 Tab PO DAILY Metoprolol Succinate ER 24 HR (Metoprolol Succinate) 100 Mg Tab 100 Mg PO DAILY Nifedipine ER (Nifedipine) 90 Mg Tab 90 Mg PO DAILY Pradaxa (Dabigatran) 75 Mg Cap 75 Mg PO BID Atorvastatin (Atorvastatin Calcium) 20 Mg Tab 20 Mg PO DAILY (Radha Kumar) Allergies: Coded Allergies: Motrin (Verified Allergy, Severe, Hallucinations, 08/20/16) Penicillin (Verified Allergy, Severe, DIZZY, 08/20/16) Active Ordered Medications Inpatient Medications Acetaminophen (Tylenol) 650 mg Q4H PRN PO TEMPERATURE > 101.5 F; Start at 11:15 Acetaminophen/ Hydrocodone Bitart ([place] 5-325 Mg) 1 tab Q4H PRN PO PAIN SCALE 1 TO 5 Last administered on 08/21/16 08:22; Start 08/20/16 at 18:45; Stop 08/21/16 at 11:47; Status DC Acetaminophen/ Hydrocodone Bitart ([place] 10-325 Mg) 2 tab Q4H PRN PO PAIN SCALE 6 TO 10; Start 08/21/16 at 11:15 Albuterol/ Ipratropium (Duoneb Neb) 1 ampule Q2HR NEB PRN INH WHEEZING; Start 08/20/16 at 18:45 Amlodipine Besylate (Norvasc) 5 mg DAILY PO Last administered on 08/22/16 10: 17; Start 08/22/16 at 10:00 Artificial Tears (Tears Naturale Opth Soln) 1 drop TID EACH EYE Last administered on 08/22/16 13:00; Start 08/21/16 at 09:00 Bisacodyl (Dulcolax Supp) 10 mg DAILY PRN ME CONSTIPATION; Start 08/21/16 at 11 :15 Calcium Gluconate 1 gm 1 gm UNSCH PRN IV SEE LABEL COMMENTS; Start 08/21/16 at 11:15 Cefazolin Sodium/ Dextrose 50 ml @ 100 mls/hr Q8H IV Last administered on 08/22 12:00; Start 08/21/16 at 20:00; Stop 08/22/16 at 12:29; Status DC Chlorhexidine Gluconate (Chlorhexidine 2% Cloth) 3 pack UNSCH PRN TOP HYGIENIC CARE; Start 08/20/16 at 18:45 Docusate Sodium (Colace) 100 mg BID PO Last administered on 08/22/16 08:24; Start 08/21/16 at 21:00 Hydralazine HCl (Apresoline Inj) 10 mg Q1HR PRN IV PUSH SBP>170, DBP>90; Start 08/22/16 at 12:15 Hydralazine HCl 10 mg 10 mg Q1HR PRN IV PUSH SBP>150, DBP>90 Last administered on 08/22/16 08:24; Start 08/20/16 at 18:45; Stop 08/22/16 at 12:00; Status DC Idarucizumab 100 ml @ 300 mls/hr ONCE ONCE IV Last administered on 08/20/16 18:24; Start 08/20/16 at 17:15; Stop 08/20/16 at 17:34; Status DC IV Flush (NS Flush) 2 ml UNSCH PRN IVF FLUSH AFTER USING IV ACCESS; Start 08/21 at 11:15 IV Flush 2 ml 2 ml BID IVF Last administered on 08/22/16 08:24; Start at 21:00 Labetalol HCl 10 mg 10 mg Q1HR PRN IV PUSH SBP>170, DBP>90, HR>65; Start at 12:15 Levetriacetam/ Sodium Chloride (Keppra Inj/NS Inj) 105 ml @ 400 mls/hr Q12H IV Last administered on 08/22/16 12:00; Start 08/21/16 at 12:00 Magnesium Sulfate/ Sodium Chloride (Magnesium Sulfate Inj/NS Inj) 108 ml @ 108 mls/hr UNSCH PRN IV MAGNESIUM LESS THAN 2; Start 08/21/16 at 11:15 Metoprolol Tartrate (Lopressor) 25 mg Q6HR PO Last administered on 08/22/16 14 :11; Start 08/22/16 at 12:00 Miscellaneous Information ALL NURSING DEPARTME... UNSCH PRN XX SEE LABEL COMMENTS; Start 08/21/16 at 13:15; Stop 08/22/16 at 13:14; Status DC Morphine Sulfate (Morphine Inj) 4 mg Q2H PRN IV PUSH PAIN SCALE 7 TO 10 Last administered on 08/22/16 11:59; Start 08/21/16 at 11:15 Morphine Sulfate 4 mg 4 mg ONCE ONCE IV PUSH Last administered on 08/20/16 16 :32; Start 08/20/16 at 16:15; Stop 08/20/16 at 16:16; Status DC Nicardipine HCl/ Sodium Chloride (Cardene Inj/NS 250 ml Inj) 260 ml @ 0 mls/hr TITRATE IV ; Start 08/20/16 at 18:45 Ondansetron HCl (Zofran Inj) 4 mg Q6H PRN IV NAUSEA OR VOMITING; Start at 11:15 Pantoprazole Sodium (Protonix Inj) 40 mg DAILY IVP ; Start 08/22/16 at 09:00 Pantoprazole Sodium (Protonix) 40 mg DAILY PO Last administered on 08/22/16 08 :24; Start 08/22/16 at 09:00 Potassium Chloride/Sodium Chloride (NS + KCl 20 Meq Inj) 1,000 ml @ 0 mls/hr Q0M IV ; Start 08/22/16 at 14:15 Potassium Chloride 100 ml @ 50 mls/hr UNSCH PRN IV POTASSIUM LESS THAN 4; Start 08/21/16 at 11:15 Sennosides (Senokot) 17.2 mg Q12H PRN PO CONSTIPATION; Start 08/20/16 at 18:45 Sodium Chloride (NS 1000 ml Inj) 1,000 ml @ 84 mls/hr [id number] IV Last administered on 08/20/16 20:50; Start 08/20/16 at 19:00; Stop 08/21/16 at 11:47 ; Status DC Sodium Chloride 188 meq/Sodium Chloride 1,047 ml @ 40 mls/hr Q24H IV Last administered on 08/20/16 22:22; Start 08/20/16 at 18:45; Stop 08/21/16 at 11:47 ; Status DC Family History Mother 96 of old age Father age 60 gastric ulcers Social History No tobacco, alcohol or IV drug use (Radha Kumar) Physical Exam Vital Signs Vital Signs Date Time Temp Pulse Resp B/P Pulse Ox O2 Delivery O2 Flow Rate FiO2 08/22/16 16:00 97.5 57 20 152/73 98 08/22/16 12:04 16 08/22/16 12:00 94 Room Air 08/22/16 12:00 97.1 64 16 133/65 94 Arterial Line 08/22/16 08:00 97.9 70 18 145/61 95 Automatic Cuff 08/22/16 08:00 95 Nasal Cannula 2.00 08/22/16 04:00 99.1 56 14 95 130/48 08/22/16 00:00 98.6 63 15 97 130/47 08/21/16 20:42 97 08/21/16 20:00 98.1 78 21 98 152/54 08/21/16 19:00 97 Nasal Cannula 2.00 Physical Exam GENERAL: This is a well-nourished, well-developed patient, in no apparent distress. SKIN: No rashes, ecchymoses or lesions. Cool and dry. HEAD: Dressing in place, has 2 TANYA's with serosanguineous drainage EYES: Pupils equal round and reactive. Extraocular motions intact. No scleral icterus. No injection or drainage. ENT: Nose without bleeding, purulent drainage or septal hematoma. Throat without erythema, tonsillar hypertrophy or exudate. Uvula midline. Airway patent. NECK: Trachea midline. No JVD or lymphadenopathy. Supple, nontender, no meningeal signs. CARDIOVASCULAR: Regular rate and rhythm without murmurs, gallops, or rubs. RESPIRATORY: Clear to auscultation. Breath sounds equal bilaterally. No wheezes , rales, or rhonchi. GASTROINTESTINAL: Abdomen soft, non-tender, nondistended. No hepato-splenomegaly , or palpable masses. No guarding. MUSCULOSKELETAL: Extremities without clubbing, cyanosis, or edema. No joint tenderness, effusion, or edema noted. No calf tenderness. Negative Homans sign bilaterally. NEUROLOGICAL: Awake and alert, oriented to self, place, others, situation. Expressive aphasia. Following commands. No focal deficits noted. Laboratory Laboratory Tests Test 08/22/16 04:20 White Blood Count 11.9 Red Blood Count 4.25 Hemoglobin 12.1 Hematocrit 37.6 Mean Corpuscular Volume 88.4 Mean Corpuscular Hemoglobin 28.6 Mean Corpuscular Hemoglobin 32.3 Concent Red Cell Distribution Width 13.9 Platelet Count 187 Mean Platelet Volume 10.0 Neutrophils (%) (Auto) 83.3 Lymphocytes (%) (Auto) 9.2 Monocytes (%) (Auto) 7.0 Eosinophils (%) (Auto) 0.1 Basophils (%) (Auto) 0.4 Neutrophils # (Auto) 9.9 Lymphocytes # (Auto) 1.1 Monocytes # (Auto) 0.8 Eosinophils # (Auto) 0.0 Basophils # (Auto) 0.0 CBC Comment DIFF FINAL Differential Comment Sodium Level 142 Potassium Level 4.5 Chloride Level 111 Carbon Dioxide Level 22.4 Anion Gap 9 Blood Urea Nitrogen 13 Creatinine 1.32 Estimat Glomerular Filtration 52 Rate Random Glucose 114 Calcium Level 8.1 (Radha Kumar) Result Diagram: 08/22/1641908/22/16 042 Imaging Last Impressions Head CT 08/21/16 0600 Signed Impressions: Service Date/Time: Sunday, August 21, 2016 04:31 - CONCLUSION: 1. Bilateral subdural hygromas/hematomas with chronic and acute/subacute blood products noted in both subdural collections, left greater than right. The acute/subacute blood products in the left subdural hematoma appears to be increased compared to the prior exam. 2. Stable small left epidural hematoma along the left frontal lobe area. 3. There continues to be mass effect and midline shift to the right by approximately 1.2 cm. 4. Focal areas of decreased density in both occipital lobes characteristic of subacute to chronic occipital lobe infarct. Tye Santiago MD (Radha Kumar) A/P Diagnosis: (1) Subdural hematoma, acute (2) Expressive aphasia (3) A-fib (4) Hypertension (5) Left leg numbness (6) Arthritis (7) Hyperlipidemia (8) CKD (chronic kidney disease) stage 3, GFR 30-59 ml/min Assessment and Plan Thank you for this consultation, we will continue with medical management 81-year-old male, history of CVA and atrial fibrillation, was on Pradaxa. Admitted with progressive headache, was found with bilateral subdural hygromas. Was given Praxbind. Status post bilateral mary holes 08/21/[address] Aguilar. -Dr. Aguilar following patient Continue neurovascular checks Monitor blood pressure, continue Norvasc, Lopressor -continue with Cardene, hydralazine, and labetalol when necessary. Keep blood pressure less than 150. -Monitor TANYA output -ST/OT/PT -Keep on bedrest until ok per neurosurgery. -CT of head has been ordered per neurosurgery, f/u on results. A. fib, currently sinus rhythm Continue with beta blockers Cannot have anticoagulation right now due to subdural bleed. CK D stage III, stable Monitor renal function Avoid nephrotoxic agents Hypertension, stable Continue with oral medication as well as when necessary meds -Keep blood pressure less than 150 Hyperlipidemia Continue home meds Arthritis Pain management as needed SCDs for DVT prophylaxis PPI for GI prophylaxis Patient will likely need rehabilitation, he has been to [facility] in the past. Plan of care has been discussed with the patient and , attending and registered nurse. Further management of the patient will be dependent on the hospital course This patient was seen by myself and Dr. Gonzales, this consultation is written on his behalf (Radha Kumar) Assessment and Plan seen, examined by myself, Dr Gonzales, today Discussed with patient and his Patient has some aphasia No pain Discussed with mid level provider The exam, history, and the medical decision-making described in the above note were completed with the assistance of the mid-level provider. I reviewed the findings presented. I attest that I had a [id number] encounter with the patient on the same day, and personally performed and documented my assessment and findings in the medical record. We will be happy to take over service Thank you for this consultation (Angel Gonzales MD) Problem Qualifiers (1) Hypertension: Qualified Code: I10 - Essential hypertension (2) A-fib: Qualified Code: I48.2 - Chronic atrial fibrillation (3) Hyperlipidemia: Qualified Code: E78.5 - Hyperlipidemia, unspecified hyperlipidemia type Radha Kumar Aug 22, 2016 16:19 Angel Gonzales MD Aug 22, 2016 19:41
[2016-08-23] VITALS (9 sets, daily range): BP systolic 135–162; BP diastolic 67–76; PULSE 57–85; RESP 16–25; TEMP 97.3–98.6; O2SAT 93–96
[2016-08-23] MEDS: levETIRAcetam INJ 500 MG in SODIUM CHLORIDE 0.9% INJ 100 ML IV SCH ×2 (00:11→12:02)
[2016-08-23] MEDS: CHLORHEXIDINE GLUCONATE 2 % 1 PACK (2 CLOTHS) TOP SCH (04:00)
--- NOTE | 2016-08-23 04:33 | RADRPT ---
EXAM DATE/TIME: 08/23/2016 04:09 [place] COMPARISON: CT BRAIN W/O CONTRAST, August 21, 2016, 4:31. INDICATIONS : Post occipital stroke x3 weeks. RADIATION DOSE: 49.35 CTDIvol (mGy) MEDICAL HISTORY : None SURGICAL HISTORY : None. ENCOUNTER: Subsequent ACUITY: 3 weeks PAIN SCALE: Non-responsive LOCATION: cranial TECHNIQUE: Multiple contiguous axial images were obtained of the head. Using automated exposure control and adj ustment of the mA and/or kV according to patient size, radiation dose was kept as low as reasonably a chievable to obtain optimal diagnostic quality images. FINDINGS: Internal mary hole and subdural drain placement on both sides. There is decreased size of bilateral s ubdural hematomas, currently about 5 mm on the right and 9 mm on the left. There is about 7 mm of rig htward midline shift. A few scattered foci of subacute blood again seen in the left subdural collecti on. There is bilateral subdural air. Subacute right occipital and left parietal lobe infarcts are again noted. No evidence of an acut e ischemic event. No mass lesion seen. CONCLUSION: Bilateral drain placement as above with decreased size of subdural hematomas. The left or right midli ne shift has decreased from 12 mm to 7 mm. No new blood. Evolving subacute right occipital and left p arietal lobe infarcts. Rayray Bernal MD on August 23, 2016 at 4:28 Board Certified Radiologist. This report was verified electronically.
[2016-08-23] MEDS: METOPROLOL TARTRATE 25 MG TAB PO SCH ×4 (06:00→17:31)
[2016-08-23] MEDS: amLODIPine BESYLATE 5 MG TAB PO SCH (08:13)
[2016-08-23] MEDS: ATORVASTATIN 20 MG TAB PO SCH (08:13)
[2016-08-23] MEDS: PANTOPRAZOLE SOD 40 MG DELAYED RELEASE TAB PO SCH (08:13)
[2016-08-23] MEDS: SODIUM CHLORIDE 0.9% FLUSH 5 ML FLUSH IVF SCH ×2 (08:13→20:14)
[2016-08-23] MEDS: PANTOPRAZOLE SODIUM 40 MG VIAL IVP SCH (08:13)
[2016-08-23] MEDS: DOCUSATE SODIUM 100 MG CAP PO SCH ×2 (08:13→20:14)
[2016-08-23] MEDS: ARTIFICIAL TEARS OPTH SOLN 15 ML BTL EACH EYE SCH ×3 (08:14→17:30)
--- NOTE | 2016-08-23 09:14 | HHI.NSPN ---
(Mary Winkler) Note Status Status: Progress Note (Lev Aguilar MD) Interval History Interval History This is a 81-year-old male with history of a prior right occipital's lobe infarction followed by left MCA hemorrhagic CVA 1 week later. At that time he was started on Pradaxa by cardiology, history of arterial hypertension, osteoarthritis, atrial fibrillation and cataracts. He presents to [facility] secondary to gradual onset of diffuse throbbing headaches, worsening. He reports that the the headaches started gradually, located over the frontal aspect,throbbing in nature. No seizure activity. no tongue bitting. No incontinence of stool or urine. Denies photophobia, diplopia, neck pain, nausea , or vomiting. CT head revealed bilateral subdural hematomas with possible acute component in the left side. There is a 1.1 cm shift left to right. He received 5 mg of idarucizumab in the ED. No focal neurological deficits noted on examination. Neurosurgical consultation was requested. 08/22: POD 1 s/p bilat mary holes for evacuation of subdural hematoma. Alert, awake but has some expressive dysphasia, able to follow commands 08/23: POD 2, expressive aphasia improving, f/u CT Brain completed (Mary Winkler) Labs, Micro, & Vital Signs Results Date Time Temp Pulse Resp B/P Pulse Ox O2 Delivery O2 Flow Rate FiO2 08/23/16 07:59 94 08/23/16 07:00 94 Room Air 08/23/16 04:00 98.6 62 20 135/67 95 08/23/16 00:05 94 21 08/23/16 00:00 98.4 60 20 148/70 93 08/22/16 20:00 98.1 61 18 155/76 96 08/22/16 19:00 96 Room Air 08/22/16 16:00 97.5 57 20 152/73 98 08/22/16 12:04 16 08/22/16 12:00 94 Room Air 08/22/16 12:00 97.1 64 16 133/65 94 Arterial Line 08/23/16 07:00 Intake Total 2482 ml Output Total 3420 ml Balance -938 ml Constitutional Vital Signs Date Time Temp Pulse Resp B/P Pulse Ox O2 Delivery O2 Flow Rate FiO2 08/23/16 07:59 94 08/23/16 07:00 94 Room Air 08/23/16 04:00 98.6 62 20 135/67 95 08/23/16 00:05 94 21 08/23/16 00:00 98.4 60 20 148/70 93 08/22/16 20:00 98.1 61 18 155/76 96 08/22/16 19:00 96 Room Air 08/22/16 16:00 97.5 57 20 152/73 98 08/22/16 12:04 16 08/22/16 12:00 94 Room Air 08/22/16 12:00 97.1 64 16 133/65 94 Arterial Line 08/23/16 07:00 Intake Total 2482 ml Output Total 3420 ml Balance -938 ml (Mary Winkler) Review of Systems/Exam Exam Mr. Hope is alert, oriented to self and with some assistance said he is in hospital. Expressive dysphasia but improving from yest. Able to name few objects today. He is able to follow commands. Wound is clean and dry with dressing. Bilateral TANYA drains to suction Cranial nerve examination: pupils to be equal, round, and reactive to light. Extra-ocular movements are intact with normal convergence. Facial motor function appears normal and symmetrical. Neck is soft and supple. Motor: moved all four extremities 4/5 Sensory: reports intact to light touch x 4 Bilateral plantar flexion response. Hoffmanns sign is negative. Cerebellar examination is limited due to the patient condition, but no obvious deficits are noted. (Mary Winkler) Medications Current Medications Current Medications Medications (Trade) Dose Ordered Sig/Alejandro Route PRN Reason Start Time Stop Time Status Last Admin Dose Admin Nicardipine HCl/ Sodium Chloride (Cardene Inj/NS 250 ml Inj) 260 ml @ 0 mls/hr TITRATE IV 08/20/16 18:45 Artificial Tears (Tears Naturale Opth Soln) 1 drop TID EACH EYE 08/21/16 09:00 08/23/16 08:14 Sennosides (Senokot) 17.2 mg Q12H PRN PO CONSTIPATION 08/20/16 18:45 Miscellaneous Information 1 [id number] XX 08/20/16 18:45 08/20/16 18:45 Chlorhexidine Gluconate (Chlorhexidine 2% Cloth) 3 pack Taper DAILY@04 TOP 08/21/16 04:00 08/17/17 03:59 08/23/16 04:00 Chlorhexidine Gluconate (Chlorhexidine 2% Cloth) 3 pack UNSCH PRN TOP HYGIENIC CARE 08/20/16 18:45 IV Flush (NS Flush) 2 ml UNSCH PRN IVF FLUSH AFTER USING IV ACCESS 08/21/16 11:15 IV Flush 2 ml 2 ml BID IVF 08/21/16 21:00 08/23/16 08:13 Levetriacetam/ Sodium Chloride (Keppra Inj/NS Inj) 105 ml @ 400 mls/hr Q12H IV 08/21/16 12:00 08/23/16 00:11 Bisacodyl (Dulcolax Supp) 10 mg DAILY PRN MD CONSTIPATION 08/21/16 11:15 Docusate Sodium (Colace) 100 mg BID PO 08/21/16 21:00 08/23/16 08:13 Pantoprazole Sodium (Protonix) 40 mg DAILY PO 08/22/16 09:00 08/23/16 08:13 Pantoprazole Sodium (Protonix Inj) 40 mg DAILY IVP 08/22/16 09:00 Ondansetron HCl (Zofran Inj) 4 mg Q6H PRN IV NAUSEA OR VOMITING 08/21/16 11:15 Calcium Gluconate 1 gm 1 gm UNSCH PRN IV SEE LABEL COMMENTS 08/21/16 11:15 Potassium Chloride 100 ml @ 50 mls/hr UNSCH PRN IV POTASSIUM LESS THAN 4 08/21/16 11:15 Magnesium Sulfate/ Sodium Chloride (Magnesium Sulfate Inj/NS Inj) 108 ml @ 108 mls/hr UNSCH PRN IV MAGNESIUM LESS THAN 2 08/21/16 11:15 Acetaminophen/ Hydrocodone Bitart ([place] 10-325 Mg) 1 tab Q4H PRN PO PAIN SCALE 1 TO 5 08/21/16 11:15 Acetaminophen/ Hydrocodone Bitart ([place] 10-325 Mg) 2 tab Q4H PRN PO PAIN SCALE 6 TO 10 08/21/16 11:15 Morphine Sulfate (Morphine Inj) 2 mg Q2H PRN IV PUSH PAIN SCALE 1 TO 6 08/21/16 11:15 08/23/16 03:55 Morphine Sulfate (Morphine Inj) 4 mg Q2H PRN IV PUSH PAIN SCALE 7 TO 10 08/21/16 11:15 08/22/16 11:59 Acetaminophen (Tylenol) 650 mg Q4H PRN PO TEMPERATURE > 101.5 F 08/21/16 11:15 Amlodipine Besylate (Norvasc) 5 mg DAILY PO 08/22/16 10:00 08/23/16 08:13 Metoprolol Tartrate (Lopressor) 25 mg Q6HR PO 08/22/16 12:00 08/22/16 14:11 Hydralazine HCl (Apresoline Inj) 10 mg Q1HR PRN IV PUSH SBP>170, DBP>90 08/22/16 12:15 Labetalol HCl 10 mg 10 mg Q1HR PRN IV PUSH SBP>170, DBP>90, HR>65 08/22/16 12:15 Potassium Chloride/Sodium Chloride (NS + KCl 20 Meq Inj) 1,000 ml @ 0 mls/hr Q0M IV 08/22/16 14:15 Atorvastatin Calcium (Lipitor) 20 mg DAILY PO 08/23/16 09:00 08/23/16 08:13 (Mary Winkler) Medical Decision Making MDM Remarks 81 y/o male presented with diffuse throbbing headaches, CT head revealed bilateral subdural hematomas with a 1.1 cm shift left to right s/p bilateral mary hole for evacuation of subdural hematoma 08/21/16 f/u CT Brain 08/23 shows improved bilateral subdural hygroma, improved midline shift, min to mod b/l bifrontal pneumocephalus (Mary Winkler) Plan Plan Remarks f/u CT Brain reviewed cont serial neuro checks cont b/l TANYA draining IS every hour PT, start mobilizing out of bed to chair, OT, ST for dysphasia nonchemical DVT proph in view of ICH Protonix for stress ulcer proph (Mary Winkler) Attending Statement The exam, history, and the medical decision-making described in the above note were completed with the assistance of the mid-level provider. I reviewed and agree with the findings presented. I attest that I had a [id number] encounter with the patient on the same day, and personally performed and documented my assessment and findings in the medical record. (Lev Aguilar MD) Mary Winkler Aug 23, 2016 09:14 Lev Aguilar MD Aug 23, 2016 11:43
--- NOTE | 2016-08-23 14:33 | HHI.PR ---
Subjective Remarks has been out of bed x 4 hours c/o being tired expressive aphasia with slight improvement no other focal deficits no headache BP 130-140s SR on tele eating okay Objective Objective Results - Vital Signs Date Time Temp Pulse Resp B/P Pulse Ox O2 Delivery O2 Flow Rate FiO2 08/23/16 12:00 98.1 85 16 148/75 93 08/23/16 08:00 98.6 57 16 162/76 94 08/23/16 07:59 94 08/23/16 07:00 94 Room Air 08/23/16 04:00 98.6 62 20 135/67 95 08/23/16 00:05 94 21 08/23/16 00:00 98.4 60 20 148/70 93 08/22/16 20:00 98.1 61 18 155/76 96 08/22/16 19:00 96 Room Air 08/22/16 16:00 97.5 57 20 152/73 98 I/O 08/22/16 08/22/16 08/22/16 08/23/16 08/23/16 08/23/16 07:00 15:00 23:00 07:00 15:00 23:00 Intake Total 988 ml 1448 ml 680 ml 354 ml 1060 ml Output Total 510 ml 890 ml 950 ml 1580 ml 1230 ml Balance 478 ml 558 ml -270 ml -1226 ml -170 ml Intake Oral 150 ml 840 ml 560 ml 120 ml 960 ml IV Total 838 ml 608 ml 120 ml 234 ml 100 ml Output Urine Total 450 ml 750 ml 850 ml 1500 ml 1150 ml Drainage Total 60 ml 140 ml 100 ml 80 ml 80 ml # Bowel Movements 0 0 Result Diagram: 08/22/16 0420 08/22/16 0420 Imaging Last Impressions Head CT 08/21/16 0600 Signed Impressions: Service Date/Time: Sunday, August 21, 2016 04:31 - CONCLUSION: 1. Bilateral subdural hygromas/hematomas with chronic and acute/subacute blood products noted in both subdural collections, left greater than right. The acute/subacute blood products in the left subdural hematoma appears to be increased compared to the prior exam. 2. Stable small left epidural hematoma along the left frontal lobe area. 3. There continues to be mass effect and midline shift to the right by approximately 1.2 cm. 4. Focal areas of decreased density in both occipital lobes characteristic of subacute to chronic occipital lobe infarct. Tye Santiago MD ROS General: Other (expressive aphasia) Physical Exam Physical Exam GENERAL: This is a well-nourished, well-developed patient, in no apparent distress. SKIN: No rashes, ecchymoses or lesions. Cool and dry. HEAD: Dressing in place, has 2 TANYA's with serosanguineous drainage EYES: Pupils equal round and reactive. Extraocular motions intact. No scleral icterus. No injection or drainage. ENT: Nose without bleeding, purulent drainage or septal hematoma. Throat without erythema, tonsillar hypertrophy or exudate. Uvula midline. Airway patent. NECK: Trachea midline. No JVD or lymphadenopathy. Supple, nontender, no meningeal signs. CARDIOVASCULAR: Regular rate and rhythm without murmurs, gallops, or rubs. RESPIRATORY: Clear to auscultation. Breath sounds equal bilaterally. No wheezes , rales, or rhonchi. GASTROINTESTINAL: Abdomen soft, non-tender, nondistended. No hepato-splenomegaly , or palpable masses. No guarding. MUSCULOSKELETAL: Extremities without clubbing, cyanosis, or edema. No joint tenderness, effusion, or edema noted. No calf tenderness. Negative Homans sign bilaterally. NEUROLOGICAL: Awake and alert, oriented to self, place, others, situation. Expressive aphasia. Following commands. No focal deficits noted. Urinary Catheter: Yes Vascular Central Line Catheter: No A/P Diagnosis: (1) Subdural hematoma, acute (2) Expressive aphasia (3) A-fib (4) Hypertension (5) Left leg numbness (6) Arthritis (7) Hyperlipidemia (8) CKD (chronic kidney disease) stage 3, GFR 30-59 ml/min Assessment and Plan 81-year-old male, history of CVA and atrial fibrillation, was on Pradaxa. Admitted with progressive headache, was found with bilateral subdural hygromas. Was given Praxbind. Status post bilateral mary holes 08/21/[address] Aguilar. -Dr. Aguilar following patient Continue neurovascular checks Monitor blood pressure, continue Norvasc, Lopressor -continue with Cardene, hydralazine, and labetalol when necessary. Keep blood pressure less than 150. -Monitor TANYA output -ST/OT/PT -OK OOB -CT of head today, results noted, improved AMed fib, currently sinus rhythm, stable SR Continue with beta blockers Cannot have anticoagulation right now due to subdural bleed. CK D stage III, stable Monitor renal function Avoid nephrotoxic agents Hypertension, stable Continue with oral medication as well as when necessary meds -Keep blood pressure less than 150 Hyperlipidemia Continue home meds Arthritis Pain management as needed SCDs for DVT prophylaxis PPI for GI prophylaxis improving, keep in ICU until clear by D/W RN D/W Dr. Gonzales D/W pt and This patient was seen by myself and Dr. Gonzales, this note is written on his behalf Problem Qualifiers (1) A-fib: Qualified Code: I48.2 - Chronic atrial fibrillation (2) Hypertension: Qualified Code: I10 - Essential hypertension (3) Hyperlipidemia: Qualified Code: E78.5 - Hyperlipidemia, unspecified hyperlipidemia type Radha Kumar Aug 23, 2016 14:33
[2016-08-24] VITALS (9 sets, daily range): BP systolic 132–162; BP diastolic 68–87; PULSE 58–98; RESP 16–27; TEMP 97.7–98.4; O2SAT 92–98
[2016-08-24] MEDS: levETIRAcetam INJ 500 MG in SODIUM CHLORIDE 0.9% INJ 100 ML IV SCH ×2 (00:41→12:11)
[2016-08-24] MEDS: CHLORHEXIDINE GLUCONATE 2 % 1 PACK (2 CLOTHS) TOP SCH (04:00)
[2016-08-24] MEDS: METOPROLOL TARTRATE 25 MG TAB PO SCH ×4 (06:00→18:46)
[2016-08-24] MEDS: PANTOPRAZOLE SODIUM 40 MG VIAL IVP SCH (09:00)
[2016-08-24] MEDS: PANTOPRAZOLE SOD 40 MG DELAYED RELEASE TAB PO SCH (09:16)
[2016-08-24] MEDS: DOCUSATE SODIUM 100 MG CAP PO SCH ×2 (09:16→19:52)
[2016-08-24] MEDS: ARTIFICIAL TEARS OPTH SOLN 15 ML BTL EACH EYE SCH ×3 (09:16→18:46)
[2016-08-24] MEDS: amLODIPine BESYLATE 5 MG TAB PO SCH (09:16)
[2016-08-24] MEDS: SODIUM CHLORIDE 0.9% FLUSH 5 ML FLUSH IVF SCH ×2 (09:16→19:52)
[2016-08-24] MEDS: ATORVASTATIN 20 MG TAB PO SCH (09:16)
--- NOTE | 2016-08-24 11:22 | HHI.PR ---
Subjective Remarks up in chair alert, responds expressive aphagia when trying to speak fast/ no chest pain No SOB No headache Objective Objective Results - Vital Signs Date Time Temp Pulse Resp B/P Pulse Ox O2 Delivery O2 Flow Rate FiO2 08/24/16 08:00 98.1 68 17 155/74 93 08/24/16 07:54 92 08/24/16 07:00 93 Room Air 08/24/16 04:00 98.2 60 16 159/76 94 08/24/16 00:00 98.2 58 27 162/74 98 08/23/16 20:00 97.3 68 19 151/70 96 08/23/16 19:35 95 21 08/23/16 19:00 95 Room Air 08/23/16 16:00 98.1 62 25 140/67 95 08/23/16 12:00 98.1 85 16 148/75 93 I/O 08/23/16 08/23/16 08/23/16 08/24/16 08/24/16 08/24/16 07:00 15:00 23:00 07:00 15:00 23:00 Intake Total 354 ml 1060 ml 219 ml 163 ml Output Total 1580 ml 1230 ml 705 ml 1765 ml Balance -1226 ml -170 ml -486 ml -1602 ml Intake Oral 120 ml 960 ml 120 ml 60 ml IV Total 234 ml 100 ml 99 ml 103 ml Output Urine Total 1500 ml 1150 ml 600 ml 1700 ml Drainage Total 80 ml 80 ml 105 ml 65 ml # Bowel Movements 0 0 Result Diagram: 08/22/1641908/22/16419 ROS General: Weakness, Other (12 point ROS done. Positives noted arm weakness, expressive aphasia. All other systems are negative or unremarkable) Neuro/MS: Other (expressive aphasia) Physical Exam Physical Exam Physical Exam GENERAL: This is a well-nourished, well-developed patient, in no apparent distress. SKIN: No rashes, ecchymoses or lesions. Cool and dry. HEAD: Dressing in place, has 2 TANYA's with serosanguineous drainage EYES: Pupils 2MM equal round and reactive. Extraocular motions intact. No scleral icterus. No injection or drainage. ENT: Nose without bleeding, purulent drainage or septal hematoma. Throat without erythema, tonsillar hypertrophy or exudate. Uvula midline. Airway patent. NECK: Trachea midline. No JVD or lymphadenopathy. Supple, nontender, no meningeal signs. CARDIOVASCULAR: Regular rate and rhythm without murmurs, gallops, or rubs. RESPIRATORY: Clear to auscultation. Breath sounds equal bilaterally. No wheezes , rales, or rhonchi. GASTROINTESTINAL: Abdomen soft, non-tender, nondistended. No hepato-splenomegaly , or palpable masses. No guarding. MUSCULOSKELETAL: Extremities without clubbing, cyanosis, or edema. No joint tenderness, effusion, or edema noted. No calf tenderness. 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 Minimal right-sided weakness. NEUROLOGICAL: Awake and alert, oriented to self, place, others, situation. Expressive aphasia. Following commands. No focal deficits noted. Urinary Catheter: Yes Vascular Central Line Catheter: No Objective Remarks I'm feeling okay today. I was able to eat well. A/P Assessment and Plan A/P Diagnosis: (1) Subdural hematoma, acute (2) Expressive aphasia (3) A-fib (4) Hypertension (5) Left leg numbness (6) Arthritis (7) Hyperlipidemia (8) CKD (chronic kidney disease) stage 3, GFR 30-59 ml/min Assessment and Plan 81-year-old male, history of CVA and atrial fibrillation, was on Pradaxa. Admitted with progressive headache, was found with bilateral subdural hygromas. Was given Praxbind. Status post bilateral mary holes 08/21/[address] Aguilar. Bilateral TANYA drains. rt. drain 25 cc, lt drain 70cc last shift. -Dr. Aguilar following patient Continue neurovascular checks, so far stable Monitor blood pressure, continue Norvasc, Lopressor -continue with Cardene, hydralazine, and labetalol when necessary. Keep blood pressure less than 150. Currently patient running in the 150s systolic -Monitor TANYA output -ST/OT/PT -OK OOB A. fib, currently sinus rhythm, stable SR Continue with beta blockers Cannot have anticoagulation right now due to subdural bleed. CK D stage III, stable Monitor renal function Avoid nephrotoxic agents Monitoring sodium level, BMP in a.m. Hypertension, stable Continue with oral medication as well as when necessary meds -Keep blood pressure less than 150, labetalol IV when necessary. So far has had no doses today Hyperlipidemia Continue home meds Arthritis Pain management as needed SCDs for DVT prophylaxis PPI for GI prophylaxis improving, keep in ICU until clear by Possible transfer in a.m. to medical floor D/W RN D/W Dr. Gonzales D/W pt This patient was seen by myself and Dr. Gonzales, this note is written on his behalf Problem Qualifiers (1) A-fib: Qualified Code: I48.2 - Chronic atrial fibrillation (2) Hypertension: Qualified Code: I10 - Essential hypertension (3) Hyperlipidemia: Qualified Code: E78.5 - Hyperlipidemia, unspecified hyperlipidemia type Discharge Planning Home with , rehabilitation versus home health Discussed With: Nurse, Family, Other Jenny Plasencia Aug 24, 2016 11:22
--- NOTE | 2016-08-24 13:56 | HHI.NSPN ---
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 At that time he was started on Pradaxa by cardiology, history of arterial hypertension, osteoarthritis, atrial fibrillation and cataracts. He presents to [facility] secondary to gradual onset of diffuse throbbing headaches, worsening. He reports that the the headaches started gradually, located over the frontal aspect,throbbing in nature. No seizure activity. no tongue bitting. No incontinence of stool or urine. Denies photophobia, diplopia, neck pain, nausea , or vomiting. CT head revealed bilateral subdural hematomas with possible acute component in the left side. There is a 1.1 cm shift left to right. He received 5 mg of idarucizumab in the ED. No focal neurological deficits noted on examination. Neurosurgical consultation was requested. 08/22: POD 1 s/p bilat mary holes for evacuation of subdural hematoma. Alert, awake but has some expressive dysphasia, able to follow commands 08/23: POD 2, expressive aphasia improving, f/u CT Brain completed Labs, Micro, & Vital Signs Results Date Time Temp Pulse Resp B/P Pulse Ox O2 Delivery O2 Flow Rate FiO2 08/24/16 12:00 97.7 98 20 150/87 94 08/24/16 08:00 98.1 68 17 155/74 93 08/24/16 07:54 92 08/24/16 07:00 93 Room Air 08/24/16 04:00 98.2 60 16 159/76 94 08/24/16 00:00 98.2 58 27 162/74 98 08/23/16 20:00 97.3 68 19 151/70 96 08/23/16 19:35 95 21 08/23/16 19:00 95 Room Air 08/23/16 16:00 98.1 62 25 140/67 95 08/24/16 07:00 Intake Total 1442 ml Output Total 3700 ml Balance -2258 ml Constitutional Vital Signs Date Time Temp Pulse Resp B/P Pulse Ox O2 Delivery O2 Flow Rate FiO2 08/24/16 12:00 97.7 98 20 150/87 94 08/24/16 08:00 98.1 68 17 155/74 93 08/24/16 07:54 92 08/24/16 07:00 93 Room Air 08/24/16 04:00 98.2 60 16 159/76 94 08/24/16 00:00 98.2 58 27 162/74 98 08/23/16 20:00 97.3 68 19 151/70 96 08/23/16 19:35 95 21 08/23/16 19:00 95 Room Air 08/23/16 16:00 98.1 62 25 140/67 95 08/24/16 07:00 Intake Total 1442 ml Output Total 3700 ml Balance -2258 ml Review of Systems/Exam Exam Mr. Hope is alert, oriented to self and place. Expressive dysphasia continues to improve. He is able to follow commands. Wound is clean and dry with dressing. Bilateral TANYA drains to suction Cranial nerve examination: pupils to be equal, round, and reactive to light. Extra-ocular movements are intact with normal convergence. Facial motor function appears normal and symmetrical. Neck is soft and supple. Motor: moved all four extremities 4/5 Sensory: reports intact to light touch x 4 Bilateral plantar flexion response. Hoffmanns sign is negative. Cerebellar examination is limited due to the patient condition, but no obvious deficits are noted. Medications Current Medications Current Medications Medications (Trade) Dose Ordered Sig/Alejandro Route PRN Reason Start Time Stop Time Status Last Admin Dose Admin Nicardipine HCl/ Sodium Chloride (Cardene Inj/NS 250 ml Inj) 260 ml @ 0 mls/hr TITRATE IV 08/20/16 18:45 Artificial Tears (Tears Naturale Opth Soln) 1 drop TID EACH EYE 08/21/16 09:00 08/24/16 13:33 Sennosides (Senokot) 17.2 mg Q12H PRN PO CONSTIPATION 08/20/16 18:45 Miscellaneous Information 1 Q361D XX 08/20/16 18:45 08/20/16 18:45 Chlorhexidine Gluconate (Chlorhexidine 2% Cloth) 3 pack Taper DAILY@04 TOP 08/21/16 04:00 08/17/17 03:59 08/24/16 04:00 Chlorhexidine Gluconate (Chlorhexidine 2% Cloth) 3 pack UNSCH PRN [facility] 08/20/16 18:45 IV Flush (NS Flush) 2 ml UNSCH PRN IVF FLUSH AFTER USING IV ACCESS 08/21/16 11:15 IV Flush 2 ml 2 ml BID IVF 08/21/16 21:00 08/24/16 09:16 Levetriacetam/ Sodium Chloride (Keppra Inj/NS Inj) 105 ml @ 400 mls/hr Q12H IV 08/21/16 12:00 08/24/16 12:11 Bisacodyl (Dulcolax Supp) 10 mg DAILY PRN [place] CONSTIPATION 08/21/16 11:15 Docusate Sodium (Colace) 100 mg BID PO 08/21/16 21:00 08/24/16 09:16 Pantoprazole Sodium (Protonix) 40 mg DAILY PO 08/22/16 09:00 08/24/16 09:16 Pantoprazole Sodium (Protonix Inj) 40 mg DAILY IVP 08/22/16 09:00 Ondansetron HCl (Zofran Inj) 4 mg Q6H PRN IV NAUSEA OR VOMITING 08/21/16 11:15 Calcium Gluconate 1 gm 1 gm UNSCH PRN IV SEE LABEL COMMENTS 08/21/16 11:15 Potassium Chloride 100 ml @ 50 mls/hr UNSCH PRN IV POTASSIUM LESS THAN 4 08/21/16 11:15 Magnesium Sulfate/ Sodium Chloride (Magnesium Sulfate Inj/NS Inj) 108 ml @ 108 mls/hr UNSCH PRN IV MAGNESIUM LESS THAN 2 08/21/16 11:15 Acetaminophen/ Hydrocodone Bitart ([place] 10-325 Mg) 1 tab Q4H PRN PO PAIN SCALE 1 TO 5 08/21/16 11:15 08/23/16 14:35 Acetaminophen/ Hydrocodone Bitart ([place] 10-325 Mg) 2 tab Q4H PRN PO PAIN SCALE 6 TO 10 08/21/16 11:15 Morphine Sulfate (Morphine Inj) 2 mg Q2H PRN IV PUSH PAIN SCALE 1 TO 6 08/21/16 11:15 08/23/16 03:55 Morphine Sulfate (Morphine Inj) 4 mg Q2H PRN IV PUSH PAIN SCALE 7 TO 10 08/21/16 11:15 08/22/16 11:59 Acetaminophen (Tylenol) 650 mg Q4H PRN PO TEMPERATURE > 101.5 F 08/21/16 11:15 Amlodipine Besylate (Norvasc) 5 mg DAILY PO 08/22/16 10:00 08/24/16 09:16 Metoprolol Tartrate (Lopressor) 25 mg Q6HR PO 08/22/16 12:00 08/24/16 12:11 Hydralazine HCl (Apresoline Inj) 10 mg Q1HR PRN IV PUSH SBP>170, DBP>90 08/22/16 12:15 08/23/16 09:28 Labetalol HCl 10 mg 10 mg Q1HR PRN IV PUSH SBP>170, DBP>90, HR>65 08/22/16 12:15 08/24/16 10:13 Potassium Chloride/Sodium Chloride (NS + KCl 20 Meq Inj) 1,000 ml @ 0 mls/hr Q0M IV 08/22/16 14:15 Atorvastatin Calcium (Lipitor) 20 mg DAILY PO 08/23/16 09:00 08/24/16 09:16 Medical Decision Making MDM Remarks 81 y/o male presented with diffuse throbbing headaches, CT head revealed bilateral subdural hematomas with a 1.1 cm shift left to right s/p bilateral mary hole for evacuation of subdural hematoma 08/21/16 f/u CT Brain 08/23 shows improved bilateral subdural hygroma, improved midline shift, min to mod b/l bifrontal pneumocephalus Plan Plan Remarks dc b/l TANYA drains cont therapy nonchemical DVT proph in view of ICH Protonix for stress ulcer proph neuro stable, ok start dc planning, if remains stable tomorrow will clear to dc from standpoint Mary Winkler Aug 24, 2016 13:56
[2016-08-25 00:08] VITALS: BP 161/67; PULSE 58; RESP 16; TEMP 98.1; O2SAT 95
[2016-08-25] MEDS: levETIRAcetam INJ 500 MG in SODIUM CHLORIDE 0.9% INJ 100 ML IV SCH ×2 (01:13→11:15)
[2016-08-25] MEDS: METOPROLOL TARTRATE 25 MG TAB PO SCH ×4 (01:13→17:24)
[2016-08-25] MEDS: CHLORHEXIDINE GLUCONATE 2 % 1 PACK (2 CLOTHS) TOP SCH (04:00)
[2016-08-25 04:21] VITALS: BP 152/67; PULSE 54; RESP 18; TEMP 98.6; O2SAT 95
[2016-08-25 08:00] VITALS: BP 175/81; PULSE 58; RESP 20; TEMP 97.3; O2SAT 95
[2016-08-25] MEDS: SODIUM CHLORIDE 0.9% FLUSH 5 ML FLUSH IVF SCH ×2 (08:24→21:06)
[2016-08-25] MEDS: amLODIPine BESYLATE 5 MG TAB PO SCH (08:24)
[2016-08-25] MEDS: DOCUSATE SODIUM 100 MG CAP PO SCH ×2 (08:24→21:06)
[2016-08-25] MEDS: ATORVASTATIN 20 MG TAB PO SCH (08:24)
[2016-08-25] MEDS: PANTOPRAZOLE SOD 40 MG DELAYED RELEASE TAB PO SCH (08:24)
[2016-08-25] MEDS: PANTOPRAZOLE SODIUM 40 MG VIAL IVP SCH (08:24)
[2016-08-25 08:55] LABS: BICARBONATE 24.3 MEQ/L (21.0-32.0); POTASSIUM 3.7 MEQ/L (3.5-5.1)
[2016-08-25] MEDS: ARTIFICIAL TEARS OPTH SOLN 15 ML BTL EACH EYE SCH ×3 (11:14→17:27)
--- NOTE | 2016-08-25 11:58 | HHI.NSPN ---
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 At that time he was started on Pradaxa by cardiology, history of arterial hypertension, osteoarthritis, atrial fibrillation and cataracts. He presents to [facility] secondary to gradual onset of diffuse throbbing headaches, worsening. He reports that the the headaches started gradually, located over the frontal aspect,throbbing in nature. No seizure activity. no tongue bitting. No incontinence of stool or urine. Denies photophobia, diplopia, neck pain, nausea , or vomiting. CT head revealed bilateral subdural hematomas with possible acute component in the left side. There is a 1.1 cm shift left to right. He received 5 mg of idarucizumab in the ED. No focal neurological deficits noted on examination. Neurosurgical consultation was requested. 08/22: POD 1 s/p bilat mary holes for evacuation of subdural hematoma. Alert, awake but has some expressive dysphasia, able to follow commands 08/23: POD 2, expressive aphasia improving, f/u CT Brain completed 08/25: POD 3, transferred out of unit. doing well, dc planning. reports of minimal headaches, severe headaches has improved. no new sx overnight. (Mary Winkler) Labs, Micro, & Vital Signs Results Date Time Temp Pulse Resp B/P Pulse Ox O2 Delivery O2 Flow Rate FiO2 08/25/16 08:00 97.3 58 20 175/81 95 08/25/16 04:21 98.6 54 18 152/67 95 08/25/16 00:08 98.1 58 16 161/67 95 08/24/16 22:00 74 08/24/16 20:00 65 08/24/16 20:00 98.4 65 24 135/73 96 08/24/16 19:15 96 21 08/24/16 19:00 95 Room Air 08/24/16 16:00 98.1 62 19 132/68 95 08/24/16 12:00 97.7 98 20 150/87 94 08/25/16 07:00 Intake Total 1745 ml Output Total 3085 ml Balance -1340 ml Constitutional Vital Signs Date Time Temp Pulse Resp B/P Pulse Ox O2 Delivery O2 Flow Rate FiO2 08/25/16 08:00 97.3 58 20 175/81 95 08/25/16 04:21 98.6 54 18 152/67 95 08/25/16 00:08 98.1 58 16 161/67 95 08/24/16 22:00 74 08/24/16 20:00 65 08/24/16 20:00 98.4 65 24 135/73 96 08/24/16 19:15 96 21 08/24/16 19:00 95 Room Air 08/24/16 16:00 98.1 62 19 132/68 95 08/24/16 12:00 97.7 98 20 150/87 94 08/25/16 07:00 Intake Total 1745 ml Output Total 3085 ml Balance -1340 ml (Mary Winkler) Review of Systems/Exam Exam Mr. Hope is alert, oriented to self and place. Expressive dysphasia improving. He is able to follow commands. Wound is clean and dry, alma intact. TANYA drain site with steri-strips, dry, no drainage. Cranial nerve examination: pupils 4mm equal, round, and reactive to light. EOMs are intact with normal convergence. Facial motor function appears normal and symmetrical. Neck is soft and supple Motor: moved all four extremities 4/5 Sensory: reports intact to light touch x 4 Bilateral plantar flexion response. Hoffmanns sign is negative. Cerebellar examination is limited due to the patient condition, but no obvious deficits are noted. (Mary Winkler) Medications Current Medications Current Medications Medications (Trade) Dose Ordered Sig/Alejandro Route PRN Reason Start Time Stop Time Status Last Admin Dose Admin Nicardipine HCl/ Sodium Chloride (Cardene Inj/NS 250 ml Inj) 260 ml @ 0 mls/hr TITRATE IV 08/20/16 18:45 Artificial Tears (Tears Naturale Opth Soln) 1 drop TID EACH EYE 08/21/16 09:00 08/25/16 11:14 Sennosides (Senokot) 17.2 mg Q12H PRN PO CONSTIPATION 08/20/16 18:45 Miscellaneous Information 1 Q361D XX 08/20/16 18:45 08/20/16 18:45 Chlorhexidine Gluconate (Chlorhexidine 2% Cloth) 3 pack Taper DAILY@04 TOP 08/21/16 04:00 08/17/17 03:59 08/25/16 04:00 Chlorhexidine Gluconate (Chlorhexidine 2% Cloth) 3 pack UNSCH PRN [facility] 08/20/16 18:45 IV Flush (NS Flush) 2 ml UNSCH PRN IVF FLUSH AFTER USING IV ACCESS 08/21/16 11:15 IV Flush 2 ml 2 ml BID IVF 08/21/16 21:00 08/25/16 08:24 Levetriacetam/ Sodium Chloride (Keppra Inj/NS Inj) 105 ml @ 400 mls/hr Q12H IV 08/21/16 12:00 08/25/16 11:15 Bisacodyl (Dulcolax Supp) 10 mg DAILY PRN [place] CONSTIPATION 08/21/16 11:15 Docusate Sodium (Colace) 100 mg BID PO 08/21/16 21:00 08/25/16 08:24 Pantoprazole Sodium (Protonix) 40 mg DAILY PO 08/22/16 09:00 08/25/16 08:24 Pantoprazole Sodium (Protonix Inj) 40 mg DAILY IVP 08/22/16 09:00 Ondansetron HCl (Zofran Inj) 4 mg Q6H PRN IV NAUSEA OR VOMITING 08/21/16 11:15 Calcium Gluconate 1 gm 1 gm UNSCH PRN IV SEE LABEL COMMENTS 08/21/16 11:15 Potassium Chloride 100 ml @ 50 mls/hr UNSCH PRN IV POTASSIUM LESS THAN 4 08/21/16 11:15 Magnesium Sulfate/ Sodium Chloride (Magnesium Sulfate Inj/NS Inj) 108 ml @ 108 mls/hr UNSCH PRN IV MAGNESIUM LESS THAN 2 08/21/16 11:15 Acetaminophen/ Hydrocodone Bitart ([place] 10-325 Mg) 1 tab Q4H PRN PO PAIN SCALE 1 TO 5 08/21/16 11:15 08/23/16 14:35 Acetaminophen/ Hydrocodone Bitart ([place] 10-325 Mg) 2 tab Q4H PRN PO PAIN SCALE 6 TO 10 08/21/16 11:15 Morphine Sulfate (Morphine Inj) 2 mg Q2H PRN IV PUSH PAIN SCALE 1 TO 6 08/21/16 11:15 08/23/16 03:55 Morphine Sulfate (Morphine Inj) 4 mg Q2H PRN IV PUSH PAIN SCALE 7 TO 10 08/21/16 11:15 08/22/16 11:59 Acetaminophen (Tylenol) 650 mg Q4H PRN PO TEMPERATURE > 101.5 F 08/21/16 11:15 Amlodipine Besylate (Norvasc) 5 mg DAILY PO 08/22/16 10:00 08/25/16 08:24 Metoprolol Tartrate (Lopressor) 25 mg Q6HR PO 08/22/16 12:00 08/25/16 01:13 Hydralazine HCl (Apresoline Inj) 10 mg Q1HR PRN IV PUSH SBP>170, DBP>90 08/22/16 12:15 08/23/16 09:28 Labetalol HCl 10 mg 10 mg Q1HR PRN IV PUSH SBP>170, DBP>90, HR>65 08/22/16 12:15 08/24/16 10:13 Potassium Chloride/Sodium Chloride (NS + KCl 20 Meq Inj) 1,000 ml @ 0 mls/hr Q0M IV 08/22/16 14:15 Atorvastatin Calcium (Lipitor) 20 mg DAILY PO 08/23/16 09:00 08/25/16 08:24 (Mary Winkler) Medical Decision Making MDM Remarks 81 y/o male presented with diffuse throbbing headaches, CT head revealed bilateral subdural hematomas with a 1.1 cm shift left to right s/p bilateral mary hole for evacuation of subdural hematoma 08/21/16 f/u CT Brain 08/23 shows improved bilateral subdural hygroma, improved midline shift, min to mod b/l bifrontal pneumocephalus (Mary Winkler) Plan Plan Remarks cont current care nonchemical DVT proph in view of ICH Protonix for stress ulcer proph remains neurologically stable, clinically improving clear dc from nrs standpoint f/u in office 2 wks post-op for staple removal (Mary Winkler) Attending Statement The exam, history, and the medical decision-making described in the above note were completed with the assistance of the mid-level provider. I reviewed and agree with the findings presented. I attest that I had a [id number] encounter with the patient on the same day, and personally performed and documented my assessment and findings in the medical record. (Lev Aguilar MD) Mary Winkler Aug 25, 2016 11:58 Lev Aguilar MD Aug 29, 2016 18:04
[2016-08-25 12:01] VITALS: BP 139/71; PULSE 93; RESP 20; TEMP 97.2; O2SAT 96
--- NOTE | 2016-08-25 13:41 | HHI.PR ---
Subjective Remarks up in chair alert, responds, smiling expressive aphagia when trying to speak fast/ no chest pain No SOB No headache in room Objective Objective Results - Vital Signs Date Time Temp Pulse Resp B/P Pulse Ox O2 Delivery O2 Flow Rate FiO2 08/25/16 12:01 97.2 93 20 139/71 96 08/25/16 08:00 97.3 58 20 175/81 95 08/25/16 04:21 98.6 54 18 152/67 95 08/25/16 00:08 98.1 58 16 161/67 95 08/24/16 22:00 74 08/24/16 20:00 65 08/24/16 20:00 98.4 65 24 135/73 96 08/24/16 19:15 96 21 08/24/16 19:00 95 Room Air 08/24/16 16:00 98.1 62 19 132/68 95 I/O 08/24/16 08/24/16 08/24/16 08/25/16 08/25/16 08/25/16 07:00 15:00 23:00 07:00 15:00 23:00 Intake Total 163 ml 1265 ml 480 ml Output Total 1765 ml 1410 ml 375 ml 1300 ml Balance -1602 ml -145 ml 105 ml -1300 ml Intake Oral 60 ml 1180 ml 480 ml IV Total 103 ml 85 ml Output Urine Total 1700 ml 1325 ml 375 ml 1300 ml Drainage Total 65 ml 85 ml # Bowel Movements 0 0 Result Diagram: 08/22/16 0420 08/25/16 0759 Other Results Last Impressions Head CT 08/23/16 0600 Signed Impressions: Service Date/Time: Tuesday, August 23, 2016 04:09 - CONCLUSION: Bilateral drain placement as above with decreased size of subdural hematomas. The left or right midline shift has decreased from 12 mm to 7 mm. No new blood. Evolving subacute right occipital and left parietal lobe infarcts. Rayray Bernal MD Medications and IVs Active Medications Magnesium Hydroxide (Milk Of Magnesia Liq) 30 ml DAILY PRN PO; Start 08/25/16 at 13:45; Status UNV ROS General: Fatigue, Weakness (improving), Other (10 point ROS done. Positives noted, other systems negative) GI: Other (constipation, and 5 days no BM) Neuro/MS: Other (expressive aphasia) Skin: Other (small bilateral wounds from TANYA drain removal. Left and right head. No erythema) Physical Exam Physical Exam Physical Exam Physical Exam GENERAL: This is a well-nourished, well-developed patient, in no apparent distress. Up in chair SKIN: No rashes, ecchymoses or lesions. Cool and dry. HEAD: Dressing in place, bilateral head. TANYA drains removed today. EYES: Pupils 2MM equal round and reactive. Extraocular motions intact. No scleral icterus. No injection or drainage. ENT: Nose without bleeding, purulent drainage or septal hematoma. Throat without erythema, tonsillar hypertrophy or exudate. Uvula midline. Airway patent. NECK: Trachea midline. No JVD or lymphadenopathy. Supple, nontender, no meningeal signs. CARDIOVASCULAR: Regular rate and rhythm without murmurs, gallops, or rubs. RESPIRATORY: Clear to auscultation. Breath sounds equal bilaterally. No wheezes , rales, or rhonchi. GASTROINTESTINAL: Abdomen soft, non-tender, nondistended. No hepato-splenomegaly , or palpable masses. No guarding. MUSCULOSKELETAL: Extremities without clubbing, cyanosis, or edema. No joint tenderness, effusion, or edema noted. No calf tenderness. Hand custody assistant fairly equal after several attempts. Minimal right-sided weakness. NEUROLOGICAL: Awake and alert, oriented to self, place, others, situation. Expressive aphasia. Following commands. No focal deficits noted. Urinary Catheter: Yes, D/C today. Vascular Central Line Catheter: No Objective Remarks Objective Remarks My bowels haven't moved in 5 days. A/P Assessment and Plan A/P Diagnosis: (1) Subdural hematoma, acute (2) Expressive aphasia (3) A-fib (4) Hypertension (5) Left leg numbness (6) Arthritis (7) Hyperlipidemia (8) CKD (chronic kidney disease) stage 3, GFR 30-59 ml/min Assessment and Plan 81-year-old male, history of CVA and atrial fibrillation, was on Pradaxa. Admitted with progressive headache, was found with bilateral subdural hygromas. Was given Praxbind. Status post bilateral mary holes 08/21/[address] Aguilar. Bilateral TANYA drains removed today. Dressings clean dry and no erythema intact. Stable from a neurosurgery standpoint. Continue neurovascular checks, so far stable Monitor blood pressure, continue Norvasc, Lopressor -continue with Cardene, hydralazine, and labetalol when necessary. Keep blood pressure less than 150. Currently patient running in the 150s systolic Clamp Dominique 2 hours and DC'd today -ST/OT/PT -OK ARMANDO AMed fib, currently sinus rhythm, stable SR Continue with beta blockers Cannot have anticoagulation right now due to subdural bleed. CK D stage III, stable Monitor renal function Avoid nephrotoxic agents Hypertension, stable Continue with oral medication as well as when necessary meds -Keep blood pressure less than 150, labetalol IV when necessary. So far has had no doses today Hyperlipidemia Continue home meds Arthritis Pain management as needed SCDs for DVT prophylaxis PPI for GI prophylaxis Working with case management For rehabilitation with [facility]. Should discharge soon D/W RN D/W Dr. Gonzales D/W CM D/W pt This patient was seen by myself and Dr. Gonzales, this note is written on his behalf Problem Qualifiers (1) A-fib: Qualified Code: I48.2 - Chronic atrial fibrillation (2) Hypertension: Qualified Code: I10 - Essential hypertension (3) Hyperlipidemia: Qualified Code: E78.5 - Hyperlipidemia, unspecified hyperlipidemia type Discharge Planning Home with , rehabilitation versus home health Discussed With: Nurse, Family, Other Jenny Plasencia Aug 25, 2016 13:41
[2016-08-25] MEDS ORDERED: MAGNESIUM HYDROXIDE SUSP 30 ML CUP PO PRN (13:45)
[2016-08-25 16:40] VITALS: BP 150/83; PULSE 108; RESP 20; TEMP 96.4; O2SAT 96
[2016-08-25] MEDS ORDERED: HYDR-3583 PO (17:58)
[2016-08-25 20:00] VITALS: BP 131/71; PULSE 68; RESP 18; TEMP 97.6; O2SAT 95
[2016-08-26] VITALS: BP 141/73; PULSE 64; RESP 20; TEMP 97.5; O2SAT 96
[2016-08-26] MEDS: levETIRAcetam INJ 500 MG in SODIUM CHLORIDE 0.9% INJ 100 ML IV SCH ×2 (00:13→11:33)
[2016-08-26] MEDS: METOPROLOL TARTRATE 25 MG TAB PO SCH ×4 (00:13→17:52)
[2016-08-26] MEDS: CHLORHEXIDINE GLUCONATE 2 % 1 PACK (2 CLOTHS) TOP SCH (02:09)
[2016-08-26 04:00] VITALS: BP 148/77; PULSE 57; RESP 18; TEMP 97.9; O2SAT 96
[2016-08-26 08:37] VITALS: BP 152/72; PULSE 56; RESP 18; TEMP 98.9; O2SAT 95
[2016-08-26] MEDS: DOCUSATE SODIUM 100 MG CAP PO SCH ×2 (08:59→20:41)
[2016-08-26] MEDS: amLODIPine BESYLATE 5 MG TAB PO SCH (08:59)
[2016-08-26] MEDS: PANTOPRAZOLE SOD 40 MG DELAYED RELEASE TAB PO SCH (08:59)
[2016-08-26] MEDS: PANTOPRAZOLE SODIUM 40 MG VIAL IVP SCH (08:59)
[2016-08-26] MEDS: SODIUM CHLORIDE 0.9% FLUSH 5 ML FLUSH IVF SCH ×2 (08:59→20:41)
[2016-08-26] MEDS: ATORVASTATIN 20 MG TAB PO SCH (08:59)
[2016-08-26] MEDS: ARTIFICIAL TEARS OPTH SOLN 15 ML BTL EACH EYE SCH ×3 (09:01→17:52)
[2016-08-26 12:00] VITALS: BP 152/73; PULSE 68; RESP 18; TEMP 97.3; O2SAT 96
--- NOTE | 2016-08-26 12:15 | HHI.PR ---
Subjective Remarks frustrated about insurance approval expressive aphasia no headache no cp no sob no fever at bsd Objective Objective Results - Vital Signs Date Time Temp Pulse Resp B/P Pulse Ox O2 Delivery O2 Flow Rate FiO2 08/26/16 08:37 98.9 56 18 152/72 95 08/26/16 04:00 97.9 57 18 148/77 96 08/26/16 00:00 97.5 64 20 141/73 96 08/25/16 20:00 97.6 68 18 131/71 95 08/25/16 16:40 96.4 108 20 150/83 96 I/O 08/25/16 08/25/16 08/25/16 08/26/16 08/26/16 08/26/16 07:00 15:00 23:00 07:00 15:00 23:00 Intake Total 236 ml Output Total 1300 ml 1075 ml Balance -1300 ml -839 ml Intake Oral 236 ml Output Urine Total 1300 ml 1075 ml # Voids 2 2 # Bowel Movements 1 Result Diagram: 08/22/16 0420 08/25/16 0759 Imaging Last Impressions Head CT 08/21/16 0600 Signed Impressions: Service Date/Time: Sunday, August 21, 2016 04:31 - CONCLUSION: 1. Bilateral subdural hygromas/hematomas with chronic and acute/subacute blood products noted in both subdural collections, left greater than right. The acute/subacute blood products in the left subdural hematoma appears to be increased compared to the prior exam. 2. Stable small left epidural hematoma along the left frontal lobe area. 3. There continues to be mass effect and midline shift to the right by approximately 1.2 cm. 4. Focal areas of decreased density in both occipital lobes characteristic of subacute to chronic occipital lobe infarct. Tye Santiago MD ROS General: Other (difficult to obtain, 12 point ROS limited. ) Physical Exam Physical Exam GENERAL: This is a well-nourished, well-developed patient, in no apparent distress. SKIN: No rashes, ecchymoses or lesions. Cool and dry. HEAD:scalp incisions intact, JPs x 2 removed. EYES: Pupils equal round and reactive. Extraocular motions intact. No scleral icterus. No injection or drainage. ENT: Nose without bleeding, purulent drainage or septal hematoma. Throat without erythema, tonsillar hypertrophy or exudate. Uvula midline. Airway patent. NECK: Trachea midline. No JVD or lymphadenopathy. Supple, nontender, no meningeal signs. CARDIOVASCULAR: Regular rate and rhythm without murmurs, gallops, or rubs. RESPIRATORY: Clear to auscultation. Breath sounds equal bilaterally. No wheezes , rales, or rhonchi. GASTROINTESTINAL: Abdomen soft, non-tender, nondistended. No hepato-splenomegaly , or palpable masses. No guarding. MUSCULOSKELETAL: Extremities without clubbing, cyanosis, or edema. No joint tenderness, effusion, or edema noted. No calf tenderness. Negative Homans sign bilaterally. NEUROLOGICAL: Awake and alert, oriented to self, place, others, situation. Expressive aphasia. Following commands. No focal deficits noted. Urinary Catheter: No Vascular Central Line Catheter: No A/P Diagnosis: (1) Subdural hematoma, acute (2) Expressive aphasia (3) A-fib (4) Hypertension (5) Left leg numbness (6) Arthritis (7) Hyperlipidemia (8) CKD (chronic kidney disease) stage 3, GFR 30-59 ml/min Assessment and Plan 81-year-old male, history of CVA and atrial fibrillation, was on Pradaxa. Admitted with progressive headache, was found with bilateral subdural hygromas. Was given Praxbind. Status post bilateral mary holes 08/21/[address] Aguilar. -Dr. Aguilar following patient Continue neurovascular checks Monitor blood pressure, continue Norvasc, Lopressor -ST/OT/PT -OK OOB -repeat CT head okay A. fib, currently sinus rhythm, stable SR Continue with beta blockers Cannot have anticoagulation right now due to subdural bleed. CK D stage III, stable Monitor renal function Avoid nephrotoxic agents Hypertension, stable Continue with oral medication as well as when necessary meds -Keep blood pressure less than 150 Hyperlipidemia Continue home meds Arthritis Pain management as needed SCDs for DVT prophylaxis PPI for GI prophylaxis CM for dc planning, waiting for authorization hopefully to CIR when arrangements made Change Matthew to PO D/W RN D/W Dr. Gonzales D/W pt and D/C CM This patient was seen by myself and Dr. Gonzales, this note is written on his behalf Discussed With: Nurse, Family, Other Problem Qualifiers (1) A-fib: Qualified Code: I48.2 - Chronic atrial fibrillation (2) Hypertension: Qualified Code: I10 - Essential hypertension (3) Hyperlipidemia: Qualified Code: E78.5 - Hyperlipidemia, unspecified hyperlipidemia type Radha Kumar Aug 26, 2016 12:15
[2016-08-26] MEDS ORDERED: LEVE500 PO (15:27)
--- NOTE | 2016-08-26 15:27 | HHI.DCPOC ---
Discharge Care Plan Diagnosis: (1) Subdural hematoma, acute Your Health Problems Are: Anxiety Difficulty with ADL Goals to Promote Your Health * To prevent worsening of your condition and complications * To maintain your health at the optimal level Directions to Meet Your Goals Take your medications as prescribed Follow your dietary instruction Follow activity as directed Keep your appointments as scheduled Take your immunizations and boosters as scheduled If your symptoms worsen call your PCP, if no PCP go to Urgent Care Center or Emergency Room Smoking is Dangerous to Your Health. Avoid second hand smoke Call the 24-hour hour crisis hotline for domestic abuse at Radha Kumar Aug 26, 2016 15:27
[2016-08-26 16:11] VITALS: BP 142/77; PULSE 80; RESP 18; TEMP 96.3; O2SAT 95
--- NOTE | 2016-08-26 17:42 | HHI.FF ---
Face to Face Verification Diagnosis: (1) Impaired mobility and activities of daily living (2) Subdural hematoma, acute Physical Therapy Order: Evaluate and Treat Occupational Therapy Order: Evaluate and Treat Speech Therapy Order: To Improve: Speech and communication skills Home Health Nursing Order: Medical education Wound care and dressing changes Home Health Aide Order: To Assist In: Bathing and personal care I have seen patient Roberto Hope on 08/26/16. My clinical findings support the need for the requested home health care services because: Ltd mobility - disease progression Deconditioned w/ increased weakness I certify that my clinical findings support that this patient is homebound because: Post-op weakness Impaired cognitive ability/safety Angel Gonazles MD Aug 26, 2016 17:42
[2016-08-26 20:00] VITALS: BP 144/75; PULSE 61; RESP 18; TEMP 97.7; O2SAT 94
[2016-08-27] VITALS: BP 142/73; PULSE 55; RESP 20; TEMP 97.8; O2SAT 96
[2016-08-27] MEDS: levETIRAcetam 500 MG TAB PO SCH ×2 (00:48→09:44)
[2016-08-27] MEDS: CHLORHEXIDINE GLUCONATE 2 % 1 PACK (2 CLOTHS) TOP SCH (03:12)
[2016-08-27 04:00] VITALS: BP 148/69; PULSE 58; RESP 18; TEMP 97.9; O2SAT 93
[2016-08-27] MEDS: METOPROLOL TARTRATE 25 MG TAB PO SCH ×3 (05:43→12:41)
[2016-08-27 07:35] VITALS: BP 139/78; PULSE 65; RESP 20; TEMP 97.5; O2SAT 95
[2016-08-27] MEDS ORDERED: NIFEdipine 90 MG SUSTAINED RELEASE TAB PO SCH (09:00)
[2016-08-27] MEDS: PANTOPRAZOLE SOD 40 MG DELAYED RELEASE TAB PO SCH (09:44)
[2016-08-27] MEDS: ARTIFICIAL TEARS OPTH SOLN 15 ML BTL EACH EYE SCH ×2 (09:44→12:41)
[2016-08-27] MEDS: DOCUSATE SODIUM 100 MG CAP PO SCH (09:44)
[2016-08-27] MEDS: ATORVASTATIN 20 MG TAB PO SCH (09:44)
[2016-08-27] MEDS: SODIUM CHLORIDE 0.9% FLUSH 5 ML FLUSH IVF SCH (09:44)
[2016-08-27 11:50] VITALS: BP 154/83; PULSE 96; RESP 20; TEMP 97; O2SAT 95
--- NOTE | 2016-08-27 12:02 | HHI.FF ---
Face to Face Verification Diagnosis: (1) Subdural hematoma, acute (2) Expressive aphasia Physical Therapy Order: Evaluate and Treat Speech Therapy Order: To Improve: Speech and communication skills, Cognitive skills Home Health Nursing Order: Medical education Nursing assessment with vital signs Auto Collision Repair Instructor Order: To Evaluate: Support services Order: To Provide: Community services I have seen patient Roberto Hope on 08/27/16. My clinical findings support the need for the requested home health care services because: Deconditioned w/ increased weakness Impaired cognition/judgement I certify that my clinical findings support that this patient is homebound because: Impaired cognitive ability/safety Radha Kumar Aug 27, 2016 12:02
[2016-08-27] MEDS ORDERED: WALKER WHEELS/F1 MIS (12:06)
--- NOTE | 2016-08-27 12:10 | HHI.PR ---
Subjective Remarks expressive aphasia markedly improved, discussing insurance issues has been ambulating with walker feels great doesn't want to go to [facility] agreeable with going home with HHC no headache no cp no sob no fever Objective Objective Results - Vital Signs Date Time Temp Pulse Resp B/P Pulse Ox O2 Delivery O2 Flow Rate FiO2 08/27/16 07:35 97.5 65 20 139/78 95 08/27/16 07:25 Room Air 08/27/16 04:00 97.9 58 18 148/69 93 08/27/16 00:00 97.8 55 20 142/73 96 08/26/16 22:05 Room Air 08/26/16 20:00 97.7 61 18 144/75 94 08/26/16 16:11 96.3 80 18 142/77 95 I/O 08/26/16 08/26/16 08/26/16 08/27/16 08/27/16 08/27/16 07:00 15:00 23:00 07:00 15:00 23:00 Intake Total 360 ml 480 ml 120 ml Output Total 350 ml Balance 10 ml 480 ml 120 ml Intake Oral 360 ml 480 ml 120 ml Output Urine Total 350 ml # Voids 2 3 2 2 Result Diagram: 08/25/16 0759 Imaging Last Impressions Head CT 08/21/16 0600 Signed Impressions: Service Date/Time: Sunday, August 21, 2016 04:31 - CONCLUSION: 1. Bilateral subdural hygromas/hematomas with chronic and acute/subacute blood products noted in both subdural collections, left greater than right. The acute/subacute blood products in the left subdural hematoma appears to be increased compared to the prior exam. 2. Stable small left epidural hematoma along the left frontal lobe area. 3. There continues to be mass effect and midline shift to the right by approximately 1.2 cm. 4. Focal areas of decreased density in both occipital lobes characteristic of subacute to chronic occipital lobe infarct. Tye Santiago MD ROS General: No: Fatigue, Weakness HEENT: No: Sore Throat, Dysphagia Cardiac: No: Chest Pain, Edema, Palpitations Pulmonary: No: Cough, SOB, Wheezing GI: No: Abdominal Pain, BM, Diarrhea, N/V /EXECUTIVE CHEF: No: Dysuria, Urgency Neuro/MS: Other (expressive aphasia), No: Lightheaded, Confusion Psych: No: Anxiety, Depression Skin: No: Itching, Rash Physical Exam Physical Exam GENERAL: This is a well-nourished, well-developed patient, in no apparent distress. SKIN: No rashes, ecchymoses or lesions. Cool and dry. HEAD:scalp incisions intact, JPs x 2 removed. EYES: Pupils equal round and reactive. Extraocular motions intact. No scleral icterus. No injection or drainage. ENT: Nose without bleeding, purulent drainage or septal hematoma. Throat without erythema, tonsillar hypertrophy or exudate. Uvula midline. Airway patent. NECK: Trachea midline. No JVD or lymphadenopathy. Supple, nontender, no meningeal signs. CARDIOVASCULAR: Regular rate and rhythm without murmurs, gallops, or rubs. RESPIRATORY: Clear to auscultation. Breath sounds equal bilaterally. No wheezes , rales, or rhonchi. GASTROINTESTINAL: Abdomen soft, non-tender, nondistended. No hepato-splenomegaly , or palpable masses. No guarding. MUSCULOSKELETAL: Extremities without clubbing, cyanosis, or edema. No joint tenderness, effusion, or edema noted. No calf tenderness. Negative Homans sign bilaterally. NEUROLOGICAL: Awake and alert, oriented to self, place, others, situation. Expressive aphasia markedly improved. Following commands. No focal deficits noted. Urinary Catheter: No Vascular Central Line Catheter: No A/P Diagnosis: (1) Subdural hematoma, acute (2) Expressive aphasia (3) A-fib (4) Hypertension (5) Left leg numbness (6) Arthritis (7) Hyperlipidemia (8) CKD (chronic kidney disease) stage 3, GFR 30-59 ml/min Assessment and Plan 81-year-old male, history of CVA and atrial fibrillation, was on Pradaxa. Admitted with progressive headache, was found with bilateral subdural hygromas. Was given Praxbind. Status post bilateral mary holes 08/21/[address] Aguilar. -Dr. Aguilar following patient Continue neurovascular checks Monitor blood pressure, continue Norvasc, Lopressor -Keppra -ST/OT/PT -OK OOB -repeat CT head okay -Cleared for discharge A. fib, currently sinus rhythm, stable SR Continue with beta blockers Cannot have anticoagulation right now due to subdural bleed. CK D stage III, stable Monitor renal function Avoid nephrotoxic agents Hypertension, stable Continue with oral medication as well as when necessary meds -Keep blood pressure less than 150 Hyperlipidemia Continue home meds Arthritis Pain management as needed SCDs for DVT prophylaxis PPI for GI prophylaxis CM for dc planning, arrange [facility] with PT/ST pt. agreeable with going home, doing remarkably well with speech -will continue at home ambulating well Discharge home with [facility] today F/U Dr. Aguilar 10 days Keep alma in place, remove in [address] Aguilar or [facility] Diet-heart healthy Activity-as tolerated, no driving D/W RN D/W Dr. Gonzales D/W pt D/C CM This patient was seen by myself and Dr. Gonzales, this note is written on his behalf Discharge Planning 40 minutes Discussed With: Nurse, Family, Other Problem Qualifiers (1) A-fib: Qualified Code: I48.2 - Chronic atrial fibrillation (2) Hypertension: Qualified Code: I10 - Essential hypertension (3) Hyperlipidemia: Qualified Code: E78.5 - Hyperlipidemia, unspecified hyperlipidemia type Radha Kumar Aug 27, 2016 12:10
--- NOTE | 2016-08-27 12:11 | HHI.DS ---
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 Aguilar. CBC/BMP: 08/25/16 0759 Significant Findings Laboratory Tests Test 08/25/16 07:59 Blood Urea Nitrogen 21 MG/DL (7-18) Creatinine 1.40 MG/DL (0.60-1.30) Estimat Glomerular Filtration 49 ML/MIN (>89) Rate Imaging Last Impressions Head CT 08/23/16 0600 Signed Impressions: Service Date/Time: Tuesday, August 23, 2016 04:09 - CONCLUSION: Bilateral drain placement as above with decreased size of subdural hematomas. The left or right midline shift has decreased from 12 mm to 7 mm. No new blood. Evolving subacute right occipital and left parietal lobe infarcts. Rayray Bernal MD Hospital Course This is a 81-year-old male with past medical history of right occipital lobe CVA August 09 followed by left MCA CVA possibly embolic with petechial hemorrhage a week later. Patient also with history of atrial fibrillation, hyperlipidemia, CKD III. After second stroke, patient was started on Pradaxa per cardiology once cleared by neurology. After prior strokes, he did have some residual left lower quadrant quadrantanopsia which had resolved. There was also some residual expressive aphasia as well as chronic numbness and tingling in the left lower extremity that was being monitored per Dr. Vasquez. Patient initially presented to the [facility] secondary to gradual onset of diffuse, throbbing headache that started after he woke up. There was no photophobia, no diplopia, no neck pain, no nausea no vomiting. A CT of the head was completed that it revealed bilateral subdural hygromas with possible acute component and left frontal region. There was a 1.1 cm shift left to right. He received 5 mg of idarucizumab in the ED. Dr. Aguilar was notified, patient admitted under pinion sorter services to the intensive surgical care unit. On 08/21, patient developed worsening headache and lethargy, repeat CT showed active acute new blood accumulation. Patient underwent bilateral mary holes for Dr. Aguilar. Patient has expressive aphasia which was more pronounced on admission. No other focal deficits. He tolerated procedure well, he had [address] Blood pressure was well controlled. Patient had been resumed on a diet, there was no trouble swallowing. He had no complaints, no headache. Pt. admitted for the following: (1) Subdural hematoma, acute (2) Expressive aphasia (3) A-fib (4) Hypertension (5) Left leg numbness (6) Arthritis (7) Hyperlipidemia (8) CKD (chronic kidney disease) stage 3, GFR 30-59 ml/min During the course of the hospitalization, the following took place: 81-year-old male, history of CVA and atrial fibrillation, was on Pradaxa. Admitted with progressive headache, was found with bilateral subdural hygromas. Was given Praxbind. Status post bilateral mary holes 08/21/[address] Aguilar. -Dr. Aguilar following patient Continued neurovascular checks Monitored blood pressure, was initially on Norvasc, Lopressor -Restarted Procardia and stopped Norvasc -Keppra was given for prevention of seizures Initially IV then was changed to oral -ST/OT/PT were ordered -Activity was increased per neurosurgery -He had serial CT of the head, improved changes -Neurosurgery cleared for discharge A. fib, currently sinus rhythm, stable SR Continued with beta blockers Cannot have anticoagulation right now due to subdural bleed. CK D stage III, stable Monitored renal function Avoided nephrotoxic agents Hypertension, stable Continue with oral medication as well as when necessary meds -Kept blood pressure less than 150 Hyperlipidemia Continued home meds Arthritis Pain management as needed SCDs for DVT prophylaxis PPI for GI prophylaxis Case management was consulted, initially patient was to call [facility] but there was problem with his insurance. Patient improved mobility, was ambulating with walker. Expressive aphasia improved markedly, patient was having fluid conversation Patient did not want to wait for authorization to go to [place] Case management was requested to arrange home health care Patient was discharged home in stable condition Instructed to: F/U Dr. Aguilar 10 days Keep alma in place, remove in [address] Aguilar or [facility] Diet-heart healthy Activity-as tolerated, no driving Pt Condition on Discharge: Stable Discharge Disposition: Disch w/ Home Health Serv Discharge Instructions DIET: Follow Instructions for: Heart Healthy Diet Activities you can perform: Weight Bearing as Mary Alice Other Activity Instructions: no driving Follow up Referrals: Neurology Neurosurgery - 10 Days with Lev Aguilar MD New Medications: Walker with Front Wheels (Walker with Front Wheels) 1 Mis Mis 1 EA .ROUTE DIRECTED #1 Ref 0 EA Hydrocodone-Acetaminophen (Hydrocodone-Acetaminophen) 10-325 mg Tab 1 TAB PO Q4H PRN PAIN SCALE 1 TO 5 #30 TAB Levetiracetam (Keppra) 500 Mg Tab 500 MG PO Q12HR Seizure Control #60 Ref 0 TAB Continued Medications: Atorvastatin (Atorvastatin) 20 Mg Tab 20 MG PO DAILY Cholesterol Management #30 Ref 0 TAB Metoprolol Succinate ER 24 HR (Metoprolol Succinate ER 24 HR) 100 Mg Tab 100 MG PO DAILY #30 Ref 0 TAB Multiple Vitamins W/ Minerals (One Daily For Men 50+ Adv) 1 Tab Tab 1 TAB PO DAILY Nifedipine (Nifedipine ER) 90 Mg Tab 90 MG PO DAILY Discontinued Medications: Dabigatran (Pradaxa) 75 Mg Cap 75 MG PO BID Blood Clot Prevention #60 Ref 0 CAP Gabapentin (Gabapentin) 300 Mg Cap 300 MG PO TID #90 Ref 0 CAP Radha Kumar Aug 27, 2016 12:11 Radha Kumar Aug 27, 2016 12:11
[2016-11-29] MEDS ORDERED: ASPI81CH CHEW (13:54)
== END 2016-08-27 14:32 | disposition home health service (06) | DRG 27 ==
LOC: PHED 15:49 → PHEDA 17:41 → N03B 21:12 → N05B 08-24 23:28
PROVIDERS: ADMIT Specialist; ATTEND Specialist
PROC: 00C43ZZ Extirpation of Matter from Intracranial Subdural Space, Percutaneous Approach (ICD-10-PCS; 2016-08-21)
PROC: 00C43ZZ Extirpation of Matter from Intracranial Subdural Space, Percutaneous Approach (ICD-10-PCS; principal; 2016-08-21 10:57)
DX: I62.01 Nontraumatic acute subdural hemorrhage (principal); G62.9 Polyneuropathy, unspecified; I48.2 Chronic atrial fibrillation; N18.3 Chronic kidney disease, stage 3 (moderate); I12.9 Hypertensive chronic kidney disease with stage 1 through stage 4 chronic kidney disease, or unspecified chronic kidney disease; D18.1 Lymphangioma, any site; E78.00 Pure hypercholesterolemia, unspecified; I69.320 Aphasia following cerebral infarction; E78.5 Hyperlipidemia, unspecified; M51.36 Other intervertebral disc degeneration, lumbar region; I62.1 Nontraumatic extradural hemorrhage; I62.03 Nontraumatic chronic subdural hemorrhage; H91.90 Unspecified hearing loss, unspecified ear; M19.90 Unspecified osteoarthritis, unspecified site; Z79.01 Long term (current) use of anticoagulants; Z88.0 Allergy status to penicillin
CPT/HCPCS: 70450; 80048; 80053; 82948; 83735; 83930; 84100; 84295; 84484; 85025; 85610; 85730; 86850; 86900; 86901; 87641; 88300; 88304; 93005; 94150; 96374; 96375; C9113; J0360; J0690; J1580; J1953; J2270; J2370; J2405; J3010; J3480; J7030

== ENCOUNTER 2017-02-06 17:08 | Emergency (ER) | payer OTHER, MEDICARE ==
[~2017-02-06] VITALS: Ht 188 cm; Wt 123.7 kg
[~2017-02-06 17:08] MED LIST changes: +ASPI81CH CHEW; +HYDR-3583 PO; +LEVE500 PO; -PRAD75CA PO; +WALKER WHEELS/F1 MIS
[2017-02-06 17:13] VITALS: BP 123/64; PULSE 53; RESP 16; TEMP 98.1; O2SAT 93
[2017-02-06] MEDS ORDERED: LYRI75CA PO (17:48)
--- NOTE | 2017-02-06 18:13 | PD ---
HPI Chief Complaint: Eye Problems/Injury Time Seen by Provider: 17:51 Travel History International Travel<30 days: No Contact w/Intl Traveler<30days: No Traveled to known affect area: No History of Present Illness HPI The patient is a 82-year-old male who presents emergency department for visual disturbances that occurred earlier today while sitting in traffic, watching a train. The patient felt like his vision got crossed, he had similar symptoms a year and a half ago in July 2015 and was diagnosed with a CVA. The patient was placed on aspirin, and in July 2016 had "blood on the brain" , that was drained by his neurosurgeon, Dr. Aguilar. The patient also states he had initial speech problems from his previous CVA that have improved, he denies any acute changes in his speech today and denies any acute weakness or numbness of the arms or legs today. He denied any other focal deficits with his vision disturbance that lasted approximately 15-20 minutes and then self resolved. The patient is currently on aspirin and also has a device that collects blood clots from his heart, according to the patient. The patient is followed by his primary physician and his washer cutter. The patient also has a neurologist, Dr. Dumont. PFSH Past Medical History Hx Anticoagulant Therapy: Yes (ASA) Asthma: No Autoimmune Disease: No Anxiety: No Depression: No Heart Rhythm Problems: Yes (ATRIAL FIBRILLATION WITH RVR) Cancer: No Cardiovascular Problems: Yes High Cholesterol: Yes (HYPERLIPIDEMIA) Chemotherapy: No Chest Pain: No Congestive Heart Failure: No COPD: No Cerebrovascular Accident: Yes Diabetes: No Diminished Hearing: Yes Endocrine: No Gastrointestinal Disorders: No GERD: No Glaucoma: No Genitourinary: No Headaches: No Hepatitis: No Hiatal Hernia: No Heparin Induced Thrombocytopen: No Hypertension: Yes Immune Disorder: No Implanted Vascular Access Dvce: No Kidney Stones: No Medical other: Yes (BACK ARTHRITIS) Musculoskeletal: Yes 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) Psychiatric: No Reproductive: No Respiratory: No Immunizations Current: Yes Migraines: No Radiation Therapy: No Renal Failure: No Seizures: No Sickle Cell Disease: No Sleep Apnea: No Thyroid Disease: No Ulcer: No Past Surgical History Abdominal Surgery: Yes (APPENDECTOMY IN 3RD GRADE) AICD: No Arteriovenous Shunt: No Cardiac Surgery: No Ear Surgery: No Endocrine Surgery: No Eye Surgery: Yes (BILATERAL CATARACT EXTRACT) Genitourinary Surgery: No Gynecologic Surgery: No Insulin Pump: No Joint Replacement: No Neurologic Surgery: No Oral Surgery: Yes (TONSILLECTOMY REMOVAL IN 3RD GRADE) Pacemaker: No Thoracic Surgery: No Other Surgery: Yes Social History Alcohol Use: No Tobacco Use: No Substance Use: No Allergies-Medications (Allergen,Severity, Reaction): Coded Allergies: Motrin (Verified Allergy, Severe, Hallucinations, 02/06/17) Penicillin (Verified Allergy, Severe, DIZZY, 02/06/17) Reported Meds & Prescriptions Reported Meds & Active Scripts Active Reported Lyrica (Pregabalin) 75 Mg Cap 0.75 Mg PO DAILY Aspirin 81 Mg Chew 325 Mg CHEW DAILY One Daily For Men 50+ Adv (Multiple Vitamins W/ Minerals) 1 Tab Tab 1 Tab PO DAILY Metoprolol Succinate ER 24 HR (Metoprolol Succinate) 100 Mg Tab 100 Mg PO DAILY Nifedipine ER (Nifedipine) 90 Mg Tab 90 Mg PO DAILY Atorvastatin (Atorvastatin Calcium) 20 Mg Tab 20 Mg PO DAILY Review of Systems Except as stated in HPI: all other systems reviewed are Neg Eyes: Positive: Visual changes HENT: No: Headaches, Lightheadedness Cardiovascular: No: Chest Pain or Discomfort Respiratory: No: Shortness of Breath Gastrointestinal: No: Nausea, Vomiting, Abdominal Pain Musculoskeletal: No: Weakness Neurologic: Positive: Other (Eye difficulty as noted in the history of present illness), No: Dizziness, Focal Abnormalities, Headache, Change in Mentation, Slurred Speech, Paresthesia, Sensory Disturbance Physical Exam Narrative GENERAL: Awake, alert, very pleasant 82-year-old male who appears his stated age and is in no acute respiratory distress. SKIN: Focused skin assessment warm/dry. HEAD: Atraumatic. Normocephalic. EYES: Pupils equal and round. Pupils are 3 mm bilateral and reactive. EOMs are intact. Patient is able to see fingers at a distance of 2 feet without difficulty. No obvious visual field deficits. ENT: No nasal bleeding or discharge. Mucous membranes pink and moist. NECK: Trachea midline. No JVD. CARDIOVASCULAR: Regular rate and rhythm. No murmur appreciated. RESPIRATORY: No accessory muscle use. Clear to auscultation. Breath sounds equal bilaterally. GASTROINTESTINAL: Abdomen soft, non-tender, nondistended. MUSCULOSKELETAL: No obvious deformities. No clubbing. No cyanosis. No edema. NEUROLOGICAL: Awake and alert. No obvious cranial nerve deficits. Motor grossly within normal limits. Normal speech. No drift of the arms or legs. Strength in the upper and lower extremities is 5/5. Patient is oriented 4. Sensation is symmetric on the face, arms, and legs. PSYCHIATRIC: Appropriate mood and affect; insight and judgment normal. Data Data Last Documented VS Vital Signs Date Time Temp Pulse Resp B/P Pulse Ox O2 Delivery O2 Flow Rate FiO2 02/06/17 19:31 52 20 02/06/17 19:23 146/66 95 Room Air 02/06/17 17:13 98.1 Orders Electrocardiogram (02/06/17 18:06) Prothrombin Time / Inr (Pt) (02/06/17 18:06) Act Partial Throm Time (Ptt) (02/06/17 18:06) Complete Blood Count With Diff (02/06/17 18:06) Comprehensive Metabolic Panel (02/06/17 18:06) Ct Brain W/O Iv Contrast(Rout) (02/06/17 18:06) Ecg Monitoring (02/06/17 18:06) Iv Access Insert/Monitor (02/06/17 18:06) Oximetry (02/06/17 18:06) Sodium Chloride 0.9% Flush (Ns Flush) (02/06/17 18:15) Mri Brain W/O Contrast (02/06/17 ) Labs Laboratory Tests Test 02/06/17 18:15 White Blood Count 8.1 TH/MM3 Red Blood Count 5.05 MIL/MM3 Hemoglobin 13.9 GM/DL Hematocrit 43.5 % Mean Corpuscular Volume 86.1 FL Mean Corpuscular Hemoglobin 27.5 PG Mean Corpuscular Hemoglobin 31.9 % Concent Red Cell Distribution Width 14.2 % Platelet Count 219 TH/MM3 Mean Platelet Volume 10.6 FL Neutrophils (%) (Auto) 65.4 % Lymphocytes (%) (Auto) 19.2 % Monocytes (%) (Auto) 8.4 % Eosinophils (%) (Auto) 6.0 % Basophils (%) (Auto) 1.0 % Neutrophils # (Auto) 5.2 TH/MM3 Lymphocytes # (Auto) 1.6 TH/MM3 Monocytes # (Auto) 0.7 TH/MM3 Eosinophils # (Auto) 0.5 TH/MM3 Basophils # (Auto) 0.1 TH/MM3 CBC Comment DIFF FINAL Differential Comment Prothrombin Time 10.4 SEC Prothromb Time International 0.9 RATIO Ratio Activated Partial 25.2 SEC Thromboplast Time Sodium Level 144 MEQ/L Potassium Level 4.8 MEQ/L Chloride Level 109 MEQ/L Carbon Dioxide Level 27.6 MEQ/L Anion Gap 7 MEQ/L Blood Urea Nitrogen 22 MG/DL Creatinine 1.70 MG/DL Estimat Glomerular Filtration 39 ML/MIN Rate Random Glucose 102 MG/DL Calcium Level 8.9 MG/DL Total Bilirubin 0.2 MG/DL Aspartate Amino Transf 16 U/L (AST/SGOT) Alanine Aminotransferase 20 U/L (ALT/SGPT) Alkaline Phosphatase 83 U/L Total Protein 7.7 GM/DL Albumin 3.4 GM/DL [facility] [place] Medical Decision Making Medical Screen Exam Complete: Yes Emergency Medical Condition: Yes Medical Record Reviewed: Yes Interpretation(s) EKG reveals sinus bradycardia with a heart rate of 48. Nonspecific ST changes. Laboratory Tests Test 02/06/17 18:15 White Blood Count 8.1 TH/MM3 Red Blood Count 5.05 MIL/MM3 Hemoglobin 13.9 GM/DL Hematocrit 43.5 % Mean Corpuscular Volume 86.1 FL Mean Corpuscular Hemoglobin 27.5 PG Mean Corpuscular Hemoglobin 31.9 % Concent Red Cell Distribution Width 14.2 % Platelet Count 219 TH/MM3 Mean Platelet Volume 10.6 FL Neutrophils (%) (Auto) 65.4 % Lymphocytes (%) (Auto) 19.2 % Monocytes (%) (Auto) 8.4 % Eosinophils (%) (Auto) 6.0 % Basophils (%) (Auto) 1.0 % Neutrophils # (Auto) 5.2 TH/MM3 Lymphocytes # (Auto) 1.6 TH/MM3 Monocytes # (Auto) 0.7 TH/MM3 Eosinophils # (Auto) 0.5 TH/MM3 Basophils # (Auto) 0.1 TH/MM3 CBC Comment DIFF FINAL Differential Comment Prothrombin Time 10.4 SEC Prothromb Time International 0.9 RATIO Ratio Activated Partial 25.2 SEC Thromboplast Time Sodium Level 144 MEQ/L Potassium Level 4.8 MEQ/L Chloride Level 109 MEQ/L Carbon Dioxide Level 27.6 MEQ/L Anion Gap 7 MEQ/L Blood Urea Nitrogen 22 MG/DL Creatinine 1.70 MG/DL Estimat Glomerular Filtration 39 ML/MIN Rate Random Glucose 102 MG/DL Calcium Level 8.9 MG/DL Total Bilirubin 0.2 MG/DL Aspartate Amino Transf 16 U/L (AST/SGOT) Alanine Aminotransferase 20 U/L (ALT/SGPT) Alkaline Phosphatase 83 U/L Total Protein 7.7 GM/DL Albumin 3.4 GM/DL Last Impressions Head CT 02/06/17 1806 Signed Impressions: Service Date/Time: Monday, February 06, 2017 18:51 - CONCLUSION: Tiny left subdural fluid collection remains without any mass effect. Viviana Mendieta MD Brain MRI 02/06/17 0000 Signed Impressions: Service Date/Time: Monday, February 06, 2017 20:09 - CONCLUSION: Chronic atrophic and small vessel ischemic changes without any evidence for acute hemorrhage or mass effect and small left subdural fluid collection. Viviana Mendieta MD Differential Diagnosis Differential diagnosis includes diplopia, CVA, TIA, intracranial hemorrhage, cerebellar infarct, bilateral hemianopsia, hypertensive emergency, tumor. Narrative Course IV was established, labs are drawn and sent, and the patient was placed on cardiac telemetry monitoring and continuous pulse oximetry monitoring. CT of the brain and MRI of the brain were obtained. Labs reveal a mildly elevated creatinine 1.7, otherwise unremarkable. CT of the brain and MRI the brain revealed no acute hemorrhage or infarct, there is an old subdural collection with no mass effect. The patient is advised to follow-up with his neurologist tomorrow, no acute change in his anticoagulation with aspirin with remaining small subdural hemorrhage. This may be related to primary visual disturbance versus possible TIA, no evidence of ischemic stroke on MRI. The patient is advised of these findings and is advised to follow-up with his neurologist the morning. Patient agrees and understands. He will be provided a copy of his MRI results, CT results, and lab results at discharge. Diagnosis Primary Impression: Bilateral hemianopia Patient Instructions: General Instructions Additional Instructions: Please provide a patient a copy of his MRI results, CT results, and lab results at discharge. Follow-up with your primary physician and neurologist. Return if symptoms worsen or progress. Med/Other Pt SpecificInfo: No Change to Meds Disposition: 01 DISCHARGE HOME Condition: Stable Tomer Candelario MD Feb 06, 2017 18:13
[2017-02-06] MEDS ORDERED: SODIUM CHLORIDE 0.9% FLUSH 10 ML FLUSH IVF PRN (18:15)
[2017-02-06 18:24] VITALS: O2SAT 96
[2017-02-06 18:33] LABS: CHLORIDE 109 MEQ/L (98-107); POTASSIUM 4.8 MEQ/L (3.5-5.1); SODIUM (NA) 144 MEQ/L (136-145)
[2017-02-06 18:35] LABS: AUTOMATED NEUTROPHIL # 5.2 TH/MM3 (1.8-7.7); BASOPHIL # 0.1 TH/MM3 (0-0.2); EOSINOPHIL # 0.5 TH/MM3 (0-0.4); HEMATOCRIT 43.5 % (39.0-51.0); HEMO FLAGS DIFF FINAL; LYMPH % 19.2 % (9.0-44.0); LYMPHOCYTE # 1.6 TH/MM3 (1.0-4.8); MEAN CELL VOLUME 86.1 FL (80.0-100.0); MEAN CORPUSCULAR HEMOGLOBIN 27.5 PG (27.0-34.0); MEAN CORPUSCULAR HGB CONC 31.9 % (32.0-36.0); MONO % 8.4 % (0.0-8.0); NEUT % 65.4 % (16.0-70.0); PLATELET COUNT 219 TH/MM3 (150-450); RED BLOOD COUNT 5.05 MIL/MM3 (4.50-5.90); RED CELL DISTRIBUTION WIDTH 14.2 % (11.6-17.2); WHITE BLOOD COUNT 8.1 TH/MM3 (4.0-11.0)
[2017-02-06 18:36] LABS: ANION GAP 7 MEQ/L (5-15); BICARBONATE 27.6 MEQ/L (21.0-32.0)
[2017-02-06 18:37] LABS: BLOOD UREA NITROGEN 22 MG/DL (7-18)
[2017-02-06 18:39] LABS: ALT (GPT) 20 U/L (12-78); APTT (PATIENT) 25.2 SEC (24.3-30.1); INTERNATIONAL NORMALIZED RATIO 0.9 RATIO; PROTHROMBIN TIME - PATIENT 10.4 SEC (9.8-11.6)
[2017-02-06 18:40] LABS: AST (GOT) 16 U/L (15-37); GLOMERULAR FILTRATION RATE 39 ML/MIN (>89)
[2017-02-06 18:41] LABS: TOTAL BILIRUBIN ADULT 0.2 MG/DL (0.2-1.0)
[2017-02-06 18:42] LABS: ALKALINE PHOSPHATASE 83 U/L (45-117)
[2017-02-06 19:23] VITALS: BP 146/66; PULSE 48; RESP 20; O2SAT 95
--- NOTE | 2017-02-06 19:29 | RADRPT ---
EXAM DATE/TIME: 02/06/2017 18:51 [facility] COMPARISON: CT BRAIN W/O CONTRAST, August 23, 2016, 4:09. INDICATIONS : Episode of visual disturbance today. RADIATION DOSE: 59.06 CTDIvol (mGy) MEDICAL HISTORY : Cerebrovascular disease. SURGICAL HISTORY : Tonsillectomy. Craniotomy.Bilateral cataracts. ENCOUNTER: Initial ACUITY: 1 day PAIN SCALE: 0/10 LOCATION: cranial TECHNIQUE: Multiple contiguous axial images were obtained of the head. Using automated exposure control and adj ustment of the mA and/or kV according to patient size, radiation dose was kept as low as reasonably a chievable to obtain optimal diagnostic quality images. DICOM format image data is available electro nically for review and comparison. FINDINGS: The previously seen subdural fluid and gas collections have basically resolved with a tiny 6-7 m m subdural fluid collection remaining on the left side. There is encephalomalacia in the right cerebe llum left posterior parietal lobe. Slight degree of brain atrophy is seen. Slight periventricular whi te matter changes are seen nonspecific mostly consistent with chronic small vessel ischemic changes. There is no mass effect. The left maxillary sinus is completely opacified. CONCLUSION: Tiny left subdural fluid collection remains without any mass effect. Viviana Mendieta MD on February 06, 2017 at 19:21 Board Certified Radiologist. This report was verified electronically.
--- NOTE | 2017-02-06 20:34 | RADRPT ---
EXAM DATE/TIME: 02/06/2017 20:09 [facility] COMPARISON: MRI BRAIN W/O CONTRAST, July 12, 2016, 19:00. CT BRAIN W/O CONTRAST, February 06, 2017, 18:51. INDICATIONS : Visual changes. MEDICAL HISTORY : Hypertension. Diabetes mellitus type 2. SURGICAL HISTORY : Appendectomy. Watchman filter., previous drains for subdural hematoma ENCOUNTER: Initial ACUITY: 1 day PAIN SCORE: 0/10 LOCATION: cranial TECHNIQUE: Multiplanar, multisequence MRI of the brain was performed without contrast. FINDINGS: There is no evidence for intracranial hemorrhage, mass effect, mass lesions, edema. There is a tiny l eft subdural fluid collection as identified on the patient's CT examination. There are no signs of ac lytton infarction for technique. The diffusion portion is unremarkable. Moderate degree of brain atrop hy is seen. Moderate periventricular white matter changes are seen nonspecific mostly consistent with chronic small vessel ischemic changes. There is complete opacification of the left maxillary sinus. There is also encephalomalacia bilaterally. CONCLUSION: Chronic atrophic and small vessel ischemic changes without any evidence for acut e hemorrhage or mass effect and small left subdural fluid collection. Viviana Mendieta MD on January at 20:28 Board Certified Radiologist. This report was verified electronically.
[2017-02-06 21:31] VITALS: BP 148/68
--- NOTE | 2017-02-07 19:46 | EKG ---
Date Performed: 02/06/2017 Time Performed: 18:18:09 PTAGE: 82 years EKG: SINUS BRADYCARDIA NONSPECIFIC ST ELEVATION BORDERLINE ECG PREVIOUS TRACING : 08/20/2016 16.08 Since previous tracing, no significant change noted DOCTOR: Shani Oliveira Interpretating Date/Time 02/07/2017 19:44:39
== END 2017-02-06 21:35 | disposition home or self-care (01) ==
LOC: PHED 17:08
DX: H53.47 Heteronymous bilateral field defects (principal); R94.31 Abnormal electrocardiogram [ECG] [EKG]; I10 Essential (primary) hypertension; E78.5 Hyperlipidemia, unspecified; H91.90 Unspecified hearing loss, unspecified ear; Z79.01 Long term (current) use of anticoagulants; Z86.79 Personal history of other diseases of the circulatory system; Z87.39 Personal history of other diseases of the musculoskeletal system and connective tissue; Z86.69 Personal history of other diseases of the nervous system and sense organs
CPT/HCPCS: 70450; 70551; 80053; 85025; 85610; 85730; 93005; 99285

== ENCOUNTER 2017-02-18 12:09 | Inpatient (IN) | payer MEDICARE, OTHER ==
[2017-02-18] VITALS (7 sets, daily range): BP systolic 136–171; BP diastolic 74–91; PULSE 54–76; RESP 18–24; TEMP 97.4–97.9; O2SAT 94–99
[~2017-02-18] VITALS: Ht 185.4 cm; Wt 123.5 kg
[~2017-02-18 12:09] MED LIST changes: -HYDR-3583 PO; -LEVE500 PO; +LYRI75CA PO; -WALKER WHEELS/F1 MIS
[2017-02-18] MEDS ORDERED: SODIUM CHLORIDE 0.9% FLUSH 10 ML FLUSH IVF PRN (12:30)
--- NOTE | 2017-02-18 12:36 | PD ---
HPI Chief Complaint: Neuro Symptoms/ Deficits Time Seen by Provider: 12:18 Travel History International Travel<30 days: No Contact w/Intl Traveler<30days: No Traveled to known affect area: No History of Present Illness HPI 82-year-old male with history of previous CVAs, subdural hematomas, presents today with complaints of dysarthria and loss of vision in his left eye. The patient states he went to bed feeling normal at 1 AM. He will come up just before 9 AM with the above symptoms. He denies any headache. He denies any focal extremity deficits. He does report that his upper and lower shimmy's bilaterally feel "weak". The patient does feel dizzy. He states it feels like he's got vertigo. He does take a full aspirin daily. He had a recent intracranial hemorrhage in July of this year. Patient also reports that he had some sort of "watchman" device placed in his heart by Dr. Vincent at [facility]. He is unable to tell me what type of devices. These understand the exam was difficult secondary to his dysarthria and mild expressive aphasia. PFSH Past Medical History Hx Anticoagulant Therapy: Yes (ASA) Asthma: No Autoimmune Disease: No Anxiety: No Depression: No Heart Rhythm Problems: Yes (ATRIAL FIBRILLATION WITH RVR) Cancer: No Cardiovascular Problems: Yes (htn, ) High Cholesterol: Yes (HYPERLIPIDEMIA) Chemotherapy: No Chest Pain: No Congestive Heart Failure: No COPD: No Cerebrovascular Accident: Yes (Jul 2015, Jul 2016) Diabetes: No Diminished Hearing: Yes Endocrine: No Gastrointestinal Disorders: No GERD: No Glaucoma: No Genitourinary: No Headaches: No Hepatitis: No Hiatal Hernia: No Heparin Induced Thrombocytopen: No Hypertension: Yes Immune Disorder: No Implanted Vascular Access Dvce: No Kidney Stones: No Musculoskeletal: Yes 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) Psychiatric: No Reproductive: No Respiratory: No Immunizations Current: Yes Migraines: No Radiation Therapy: No Renal Failure: No Seizures: No Sickle Cell Disease: No Sleep Apnea: No Thyroid Disease: No Ulcer: No Past Surgical History Abdominal Surgery: Yes (APPENDECTOMY IN 3RD GRADE) AICD: No Arteriovenous Shunt: No Cardiac Surgery: No Ear Surgery: No Endocrine Surgery: No Eye Surgery: Yes (BILATERAL CATARACT EXTRACT) Genitourinary Surgery: No Gynecologic Surgery: No Insulin Pump: No Joint Replacement: No Neurologic Surgery: No Oral Surgery: Yes (TONSILLECTOMY REMOVAL IN 3RD GRADE) Pacemaker: No Thoracic Surgery: No Other Surgery: Yes (WATCHMAN, FILTER IN HIS HEART) Social History Alcohol Use: No Tobacco Use: No Substance Use: No Allergies-Medications (Allergen,Severity, Reaction): Coded Allergies: Motrin (Verified Allergy, Severe, Hallucinations, 02/18/17) Penicillin (Verified Allergy, Severe, DIZZY, 02/18/17) Reported Meds & Prescriptions Reported Meds & Active Scripts Active Reported Lyrica (Pregabalin) 75 Mg Cap 75 Mg PO TID Aspirin 81 Mg Chew 325 Mg CHEW DAILY Metoprolol Succinate ER 24 HR (Metoprolol Succinate) 100 Mg Tab 100 Mg PO DAILY Nifedipine ER (Nifedipine) 90 Mg Tab 90 Mg PO DAILY Atorvastatin (Atorvastatin Calcium) 20 Mg Tab 20 Mg PO DAILY Review of Systems Except as stated in HPI: all other systems reviewed are Neg General / Constitutional: No: Fever, Chills HENT: No: Headaches, Neck Pain Cardiovascular: No: Chest Pain or Discomfort, Palpitations Respiratory: No: Cough, Shortness of Breath Gastrointestinal: No: Nausea, Abdominal Pain Genitourinary: No: Dysuria, Incontinence Musculoskeletal: No: Weakness, Pain Neurologic: Positive: Slurred Speech, Other, No: Weakness, Dizziness, Headache , Incontinence Physical Exam Narrative GENERAL: Well-developed well-nourished male in no acute respiratory distress. SKIN: Focused skin assessment warm/dry. HEAD: Atraumatic. Normocephalic. EYES: No scleral icterus. No injection or drainage. ENT: No nasal bleeding or discharge. Mucous membranes pink and moist. NECK: Trachea midline. No JVD. Supple. CARDIOVASCULAR: Regular rate and rhythm. No murmur appreciated. RESPIRATORY: No accessory muscle use. Clear to auscultation. Breath sounds equal bilaterally. GASTROINTESTINAL: Abdomen soft, non-tender, nondistended. Hepatic and splenic margins not palpable. MUSCULOSKELETAL: No obvious deformities. No clubbing. No cyanosis. No edema. NEUROLOGICAL: Awake and alert. Patient has dysarthria with expressive aphasia. Motor strength appears to be intact. Data Data Last Documented VS Orders Prothrombin Time / Inr (Pt) (02/18/17 12:28) Complete Blood Count With Diff (02/18/17 12:28) Comprehensive Metabolic Panel (02/18/17 12:28) Creatine Kinase (Cpk) (02/18/17 12:28) Troponin I (02/18/17 12:28) Urinalysis - C+S If Indicated (02/18/17 12:28) Ct Brain W/O Iv Contrast(Rout) (02/18/17 12:28) Ecg Monitoring (02/18/17 12:28) Iv Access Insert/Monitor (02/18/17 12:28) Oximetry (02/18/17 12:28) Sodium Chloride 0.9% Flush (Ns Flush) (02/18/17 12:30) Electrocardiogram (02/18/17 12:20) Consult Neurology (02/18/17 ) Admit Order (Ed Use Only) (02/18/17 14:12) MDM Medical Decision Making Medical Screen Exam Complete: Yes Emergency Medical Condition: Yes Differential Diagnosis TIA versus CVA versus seizure versus intracranial hemorrhage Narrative Course 82-year-old male presents today as a stroke alert. The patient has a history of previous intercranial hemorrhage in July of this month. The patient presents with dysarthria and expressive aphasia. The rest of his neurologic exam appear to be within normal limits. I discussed the case with Dr. Marley, on-call neurologist, who agrees at this point the patient is not a candidate for TPA. Patient does have a "watchman" device in his atrium. Initial concern whether he could have an MRI are not was discussed. According to the patient he 's had previous MRI with the device. The patient will be admitted as a CVA. He does have a history of A. fib. His rate control at this point. Appears to be in sinus rhythm. Diagnosis Primary Impression: Cerebrovascular accident (CVA) Additional Impression: Hx of subdural hemorrhage Admitting Information Admitting Physician Requests: Admit Scripts Walker with Front Wheels 1 Mis Mis #1 EA .ROUTE DIRECTED Ref 0 Prov:Radha Kumar 02/22/17 Levetiracetam (Keppra)500 Mg Vhd552 Mg PO Q12H #30 TAB Ref 1 Prov:Radha Kumar 02/22/17 Shaheen Smith MD Feb 18, 2017 12:36
[2017-02-18] MEDS ORDERED: LYRI75CA PO (12:52)
[2017-02-18 12:58] LABS: AUTOMATED NEUTROPHIL # 6.9 TH/MM3 (1.8-7.7); BASOPHIL # 0.1 TH/MM3 (0-0.2); BASOPHIL % 1.1 % (0.0-2.0); EOSINOPHIL # 0.1 TH/MM3 (0-0.4); HEMATOCRIT 44.2 % (39.0-51.0); HEMO FLAGS DIFF FINAL; LYMPH % 10.5 % (9.0-44.0); LYMPHOCYTE # 0.9 TH/MM3 (1.0-4.8); MEAN CELL VOLUME 86.5 FL (80.0-100.0); MEAN CORPUSCULAR HEMOGLOBIN 28.3 PG (27.0-34.0); MEAN CORPUSCULAR HGB CONC 32.8 % (32.0-36.0); NEUT % 82.4 % (16.0-70.0); PLATELET COUNT 208 TH/MM3 (150-450); RED BLOOD COUNT 5.11 MIL/MM3 (4.50-5.90); RED CELL DISTRIBUTION WIDTH 14.3 % (11.6-17.2); WHITE BLOOD COUNT 8.4 TH/MM3 (4.0-11.0)
[2017-02-18 13:04] LABS: PROTHROMBIN TIME - PATIENT 10.6 SEC (9.8-11.6)
[2017-02-18 13:20] LABS: ALT (GPT) 24 U/L (12-78); ANION GAP 9 MEQ/L (5-15); AST (GOT) 21 U/L (15-37); BICARBONATE 23.4 MEQ/L (21.0-32.0); BLOOD UREA NITROGEN 16 MG/DL (7-18); CHLORIDE 106 MEQ/L (98-107); GLOMERULAR FILTRATION RATE 45 ML/MIN (>89); POTASSIUM 4.1 MEQ/L (3.5-5.1); SODIUM (NA) 138 MEQ/L (136-145)
[2017-02-18 13:24] LABS: ALKALINE PHOSPHATASE 81 U/L (45-117); CREATINE KINASE 217 U/L (39-308); TOTAL BILIRUBIN ADULT 0.4 MG/DL (0.2-1.0)
--- NOTE | 2017-02-18 13:28 | RADRPT ---
EXAM DATE/TIME: 02/18/2017 13:10 [facility] COMPARISON: CT BRAIN W/O CONTRAST, August 20, 2016, 16:42. CT BRAIN W/O CONTRAST, August 23, 2016, 4:09. CT B RAIN W/O CONTRAST, February 06, 2017, 18:51. INDICATIONS : Confusion with bilateral change of vision and slurred talk. RADIATION DOSE: 37.50 CTDIvol (mGy) MEDICAL HISTORY : Hypertension. Cardiovascular disease CVA SURGICAL HISTORY : Appendectomy. Filter in heart. ENCOUNTER: Initial ACUITY: 1 day PAIN SCALE: 2/10 LOCATION: Bilateral cranial TECHNIQUE: Multiple contiguous axial images were obtained of the head. Using automated exposure control and adj ustment of the mA and/or kV according to patient size, radiation dose was kept as low as reasonably a chievable to obtain optimal diagnostic quality images. DICOM format image data is available electro nically for review and comparison. FINDINGS: CEREBRUM: Stable small 6-7 mm subdural hygroma in this patient with history of bilateral hygromas and previous drainage. There is stable left posterior parietal and right occipital encephalomalacia. Stable right basal ganglia lacunar infarct. The ventricles are normal for degree of atrophy. No evidence of midli ne shift, mass lesion, hemorrhage or acute infarction. No extra-axial fluid collections are seen. POSTERIOR FOSSA: The cerebellum and brainstem are intact. The 4th ventricle is midline. The cerebellopontine angle i s unremarkable. EXTRACRANIAL: The visualized portion of the orbits is intact. SKULL: The calvaria is intact. No evidence of skull fracture. Mucoperiosteal thickening in the left maxilla ry sinus. CONCLUSION: 1. No acute intracranial abnormality or interval change. 2. Stable 6-7 mm posterior left subdural hygroma. 3. Stable and subtle malacia defect in the left posterior parietal and right occipital lobes consiste nt with prior infarcts. Rajinder Aguayo MD on February 18, 2017 at 13:19 Board Certified Radiologist. This report was verified electronically.
[2017-02-18 14:10] LABS: BLOOD, URINE SMALL (NEG); GLUCOSE,URINE 300 mg/dL (NEG); KETONE, URINE NEG (NEG); MUCUS URINE FEW /lpf (OCC); NITRITE,URINE NEG (NEG); PH, URINE 7.5 (5.0-8.5); URINE COLOR LIGHT-YELLOW (YELLW/STRAW)
[2017-02-18 14:11] LABS: COMMENT (UR) CATH-CULT NOT IND; CULTURE IF INDICATED CATH CULTURE NOT IND
[2017-02-18] MEDS ORDERED: ONDANSETRON HCL 4 MG/2 ML VIAL IVP PRN (14:30)
[2017-02-18] MEDS ORDERED: NALOXONE HCL 0.4 MG/ML AMP IV PRN (14:30)
[2017-02-18] MEDS ORDERED: SODIUM CHLORIDE 0.9% FLUSH 10 ML FLUSH IV FLUSH PRN (14:30)
[2017-02-18] MEDS ORDERED: GADOBENATE DIM PF 529 MG/ML 20ML VIAL (for RAD MRI) IV ONE (16:30)
[2017-02-18] MEDS: D5-1/2 NS + KCL 20 MEQ INJ 1,000 ML IV SCH (16:42)
--- NOTE | 2017-02-18 16:52 | RADRPT ---
EXAM DATE/TIME: 02/18/2017 15:58 [facility] COMPARISON: MRA BRAIN W/O CONTRAST, July 31, 2015, 19:14. MRI BRAIN W & W/O CONTRAST, February 18, 2017, 15:58. INDICATIONS : Confusion with bilateral change of vision and slurred talk. MEDICAL HISTORY : Hypertension. Diabetes mellitus type 2. SURGICAL HISTORY : Watchman insertion/Drains in brain. ENCOUNTER: Initial ACUITY: 1 day PAIN SCORE: 0/10 LOCATION: head Please note a normal MRA of the brain does not entirely exclude the possibility of a small aneurysm, nor the possibility of distal intracranial vessel disease. TECHNIQUE: 3D time of flight MRA was performed. Source images, multiplanar STS MIP, and 3D volume MIP reconstru ctions were reviewed. FINDINGS: There is excellent visualization of the major intracranial arteries out to the second-order branch ve ssels. There is no evidence for aneurysm, vessel truncation or stenosis, and no evidence for vascula r malformation. CONCLUSION: 1. Unremarkable MRA examination of the brain. No evidence for large vessel occlusion, aneurysm, or va scular malformation. Rajinder Aguayo MD on February 18, 2017 at 16:45 Board Certified Radiologist. This report was verified electronically.
--- NOTE | 2017-02-18 17:05 | RADRPT ---
EXAM DATE/TIME: 02/18/2017 15:58 [facility] COMPARISON: MRI BRAIN W/O CONTRAST, February 06, 2017, 20:09. MRI BRAIN W & W/O CONTRAST, July 31, 2015, 19:14. INDICATIONS : Confusion with bilateral change of vision and slurred talk. CONTRAST: 20 cc Multihance (gadobenate) IV MEDICAL HISTORY : Stroke Hypertension. Diabetes mellitus type 2. SURGICAL HISTORY : Watchman device/Drains in brain, ENCOUNTER: Initial ACUITY: 1 day PAIN SCORE: 2/10 LOCATION: head TECHNIQUE: Multiplanar, multisequence MRI of the brain was performed both prior to and following the administrat ion of paramagnetic contrast. FINDINGS: CEREBRUM: Stable small 8mm posterior left parietal subdural hygroma. Left posterior parietal encephalomalacia a nd more focal right posterior occipital unchanged from prior exam. The ventricles are normal for degr ee of atrophy. No evidence of midline shift, mass lesion, hemorrhage or acute infarction. No extraa xial fluid collections are seen. The pituitary gland and suprasellar cistern are normal in configura tion. WHITE MATTER: Scattered periventricular white matter increased T2 signal consistent with ischemic white matter demy elination. POSTERIOR FOSSA: The cerebellum and brainstem are intact. The 4th ventricle is midline. The cerebellopontine angle is unremarkable. The cerebellar tonsils are normal in position. DIFFUSION IMAGING: No focal areas of restricted diffusion are seen. No evidence of acute infarction. EXTRACRANIAL: The visualized portions of the orbits and paranasal sinuses are unremarkable. POST-CONTRAST: No abnormal areas of parenchymal or dural enhancement. No evidence of blood-brain barrier breakdown. CONCLUSION: 1. No acute infarction, hemorrhage, or other acute abnormality. 2. Stable 8 mm left posterior parietal subdural hygroma. 3. Stable left posterior parietal and right occipital encephalomalacia. Rajinder Aguayo MD on February 18, 2017 at 16:50 Board Certified Radiologist. This report was verified electronically.
--- NOTE | 2017-02-18 17:55 | MH ---
cc: RAQUEL MONREAL MD DATE OF ADMISSION 02/18/[address] Milton Garcia PRESENTING COMPLAINT Dysarthria, loss of vision in the left eye. 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 At that time, the patient was started on Pradaxa per cardiology which was discontinued after his subdural hematoma in July of this year. The patient also has history of hypertension, osteoarthritis, atrial fibrillation and cataracts. The patient had presented to [facility] emergency room two weeks ago with complaints of hemianopsia visual defect which, according to the ER physician, lasted only about 10-15 minutes and resolved. The patient was discharged to home on aspirin with plan to follow up with neurology. The patient woke up this morning at 9:00 a.m. with complaints of dysarthria and loss of vision in his left eye. He denies any headache, denied any focal extremity deficits. He felt weak in bilateral upper and lower extremities. He felt dizzy and was complaining of vertigo. The patient is compliant with his aspirin. Recently, the patient had some nathaly of device placed by cardiology. The patient had a CT scan in the emergency room which was negative for any acute bleed or stroke. REVIEW OF SYSTEMS As mentioned above, significant for vertigo, dizziness, vision changes and dysarthria which appear to be slowly improving at this time. REVIEW OF SYSTEMS Otherwise completely negative in all 14-systems that were reviewed. ALLERGIES MOTRIN PENICILLIN PAST MEDICAL HISTORY 1. Cataracts 2. History of right occipital lobe CVA in July of 2015, 3. History of left MCA CVA petechial hemorrhages in the right lobe in July of 2015 4. History of subdural hematoma and a CVA in July of 2016 5. Recent TIA two weeks ago. 6. Hypertension. 7. Dyslipidemia. 8. Osteoarthritis. 9. Chronic atrial fibrillation. 10. Diminished hearing. 11. Hypertension. PAST SURGICAL HISTORY 1. Appendectomy in third grade. 2. Bilateral cataract extractions. 3. Tonsillectomy. 4. As mentioned above in his heart. MEDICATIONS At home, 1. Lyrica 75 mg p.o. daily. 2. Aspirin 81 mg p.o. daily. 3. Multivitamins 1 tablet p.o. daily. 4. Metoprolol succinate 100 mg p.o. daily. 5. 90 mg p.o. daily. 6. Atorvastatin 20 mg p.o. daily. FAMILY HISTORY Mother at 96 of old age. Father at age 60 because of gastric ulcers. SOCIAL HISTORY No history of tobacco, alcohol or IV drug abuse. The patient lives at home with his . PHYSICAL EXAMINATION VITAL SIGNS: At the time of admission, temperature of 97.9, pulse 76, respiratory rate 24, systolic blood pressure 171, diastolic 91 and he was satting 98% on room air. Current vital signs show heart rate 58, blood pressure 139/74, sats are 97% on two liters nasal cannula. GENERAL: Patient is awake, alert, oriented, laying in bed, does not appear to be in any acute distress. HEENT: Pupils are reactive to light. NECK: Supple, nontender, no JVD. CARDIOVASCULAR: S1-S2, no gallop, murmurs or rubs. RESPIRATORY: Bilateral air entry. clear to auscultation, no rales, wheezes or rhonchi. GI: Positive bowel sounds, soft, nontender. EXTREMITIES: No cyanosis, clubbing or edema. NEUROLOGIC: The patient is awake, alert, oriented x3. He does have hesitancy in speech but is able to communicate his ideas effectively. The patient still reports having vision issues. He reports he feels like his vision is crossed. However, the patient has good vision, normal vision if right eye is closed. However, if left eye is closed he still feels hazy vision. His dysarthria has improved since morning. The patient has a slight left facial droop which, according to the , has also improved since admission. The patient has equal strength bilateral upper and lower extremities. He does have some residual weakness of the right side from old strokes in the past. PSYCHIATRIC: Examination appropriate and cooperative. LABORATORY DATA WBC count of 8.4, hemoglobin 14.5, hematocrit 44.2, platelet count of 208. Chemistry shows sodium 138, potassium 4.1, chloride 106, bicarb 33.4, BUN 16, creatinine of 1.49, glucose 126, troponin is negative, AST 21, ALT 24, alkaline phosphatase 81, total protein 8.1, albumin 3.6, INR of 1.0. UA is negative. IMAGING STUDIES At this point a CT scan of the head shows no acute intracranial abnormality or interval changes, a stable 6-7 mm posterior left subdural hygroma. The patient also has stable encephalomalacia defect in the left posterior parietal and right occipital lobes consistent with prior infarct. MRI of the brain was done which shows no acute infarction, hemorrhage or other acute abnormalities. As mentioned above, evidence of prior episodes of CVA. MRA of the head was done which is unremarkable too. ASSESSMENT/PLAN The patient is an 82-year-old gentleman who presented to the ER with vision changes and dysarthria. Symptoms appear to be slowly improving. 1. TIA/CVA. The patient has currently taken his aspirin for the day. We have consulted neurology, Dr. Long. There is no evidence of acute CVA on CT head on MRI, MRA of the head. I will hold on advancing anticoagulation until neurology recommendations given the patient's history of subdural hematoma in July and also petechial hemorrhages in the past. The patient is, however, at high risk of further strokes given his history of paroxysmal atrial fibrillation. 2. History of high blood pressure, hyperlipidemia, paroxysmal atrial fibrillation currently rate controlled. We will continue metoprolol, nifedipine and atorvastatin. We will continue aspirin. We will consult PT and OT. We will proceed with bedside swallow eval. If patient clears, we will advance diet to a heart healthy diet. Plan of care discussed with the patient and at bedside. Plan of care discussed with nursing staff. MD RIVERA Irving/ /5:11 PM /5:24 PM
[2017-02-18] MEDS: PREGABALIN 75 MG CAP PO SCH (18:00)
[2017-02-18] MEDS: SODIUM CHLORIDE 0.9% FLUSH 10 ML FLUSH IV FLUSH SCH ×2 (21:00→21:37)
[2017-02-19] VITALS (11 sets, daily range): BP systolic 131–164; BP diastolic 62–81; PULSE 48–87; RESP 19–20; TEMP 96.6–98.4; O2SAT 94–97
[2017-02-19] MEDS: D5-1/2 NS + KCL 20 MEQ INJ 1,000 ML IV SCH ×3 (03:35→22:00)
[2017-02-19] MEDS: ATORVASTATIN 20 MG TAB PO SCH (09:00)
[2017-02-19] MEDS: NIFEdipine 90 MG SUSTAINED RELEASE TAB PO SCH (09:00)
[2017-02-19] MEDS: ASPIRIN 325 MG TAB PO SCH (09:00)
[2017-02-19] MEDS: METOPROLOL SUCCINATE 50 MG EXTENDED RELEASE TAB PO SCH (09:00)
[2017-02-19 09:58] LABS: AUTOMATED NEUTROPHIL # 5.6 TH/MM3 (1.8-7.7); BASOPHIL # 0.1 TH/MM3 (0-0.2); BASOPHIL % 0.8 % (0.0-2.0); EOSINOPHIL # 0.3 TH/MM3 (0-0.4); EOSINOPHIL % 3.3 % (0.0-4.0); HEMATOCRIT 44.6 % (39.0-51.0); HEMO FLAGS DIFF FINAL; LYMPH % 19.4 % (9.0-44.0); LYMPHOCYTE # 1.6 TH/MM3 (1.0-4.8); MEAN CELL VOLUME 86.4 FL (80.0-100.0); MEAN CORPUSCULAR HEMOGLOBIN 28.7 PG (27.0-34.0); MEAN CORPUSCULAR HGB CONC 33.2 % (32.0-36.0); MONO % 7.3 % (0.0-8.0); NEUT % 69.2 % (16.0-70.0); PLATELET COUNT 204 TH/MM3 (150-450); RED BLOOD COUNT 5.16 MIL/MM3 (4.50-5.90); RED CELL DISTRIBUTION WIDTH 14.4 % (11.6-17.2)
[2017-02-19 10:08] LABS: BICARBONATE 22.4 MEQ/L (21.0-32.0); POTASSIUM 3.8 MEQ/L (3.5-5.1)
--- NOTE | 2017-02-19 10:14 | PD.CONS ---
History of Present Illness Service Neurology Consult Requested By er Reason for Consult tia/stroke Primary Care Physician Milton Garcia MD History of Present Illness 82 y/o m presents to er with c/o of dizziness, offbalance. complicated stroke hx with ischemic infarcts, followed by ich, subdural hygromas requiring drainage. has a watchman device for cardioembolic protection as he is a poor candidate for OAC with hx of ICH. 02/18/17 mri brain- no acute stroke; bp sys 170's in er. takes lyrica for paresthesias, pain. 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 Past Surgical History T&A Cataracts Appendectomy Allergies: Coded Allergies: Motrin (Verified Allergy, Severe, Hallucinations, 08/20/16) Penicillin (Verified Allergy, Severe, DIZZY, 08/20/16) Family History Mother 96 of old age Father age 60 gastric ulcers Social History No tobacco, alcohol or IV drug use Review of Systems All other ROS: ROS reviewed as documented in chart Past Family Social History Allergies: Coded Allergies: Motrin (Verified Allergy, Severe, Hallucinations, 02/18/17) Penicillin (Verified Allergy, Severe, DIZZY, 02/18/17) Active Ordered Medications Current Medications Medications (Trade) Dose Ordered Sig/Alejandro Route Start Time Stop Time Status Last Admin (D5-1/ NS + KCl 20 Meq Inj) 1,000 ml @ 100 mls/hr Q10H IV 02/18/17 16:00 02/19/17 03:35 (NS Flush) 2 ml UNSCH PRN IV FLUSH 02/18/17 14:30 (NS Flush) 2 ml BID IV FLUSH 02/18/17 21:00 (Zofran Inj) 4 mg Q6H PRN IVP 02/18/17 14:30 (Narcan Inj) 0.4 mg UNSCH PRN IV 02/18/17 14:30 (Aspirin) 325 mg DAILY PO 02/19/17 09:00 (Lipitor) 20 mg DAILY PO 02/19/17 09:00 (Procardia Xl) 90 mg DAILY PO 02/19/17 09:00 (Lyrica) 75 mg TID PO 02/18/17 18:00 (Toprol Xl) 100 mg DAILY PO 02/19/17 09:00 Exam I&O / VS 02/18/17 02/18/17 02/19/17 15:00 23:00 07:00 Intake Total 480 ml 1315 ml Output Total 1100 ml 800 ml Balance -620 ml 515 ml Intake Oral 480 ml 360 ml IV Total 955 ml Output Urine Total 1100 ml 800 ml # Voids 1 # Bowel Movements 1 Vital Signs Date Time Temp Pulse Resp B/P Pulse Ox O2 Delivery O2 Flow Rate FiO2 02/19/17 08:07 96.8 55 19 164/81 96 02/19/17 04:00 96.6 54 20 142/75 97 02/19/17 03:20 87 02/19/17 00:00 97.6 58 20 141/74 94 02/18/17 20:29 97.4 72 18 156/87 98 02/18/17 20:00 97.8 54 20 164/81 95 02/18/17 17:46 62 20 139/74 99 Nasal Cannula 2 02/18/17 16:43 58 19 139/74 97 Nasal Cannula 2 02/18/17 14:16 62 136/82 95 Room Air 02/18/17 12:36 94 Room Air 02/18/17 12:21 97.9 76 24 171/91 96 Room Air General: No acute distress Respiratory: Lungs CTA, Non-labored respirations, BS equal Cardiology: Normal rate Musculoskeletal: Swelling, Other Neurologic: Alert Psychiatric: Cooperative Exam Comments alert, mild to moderate expressive aphasia, able to name objects, follows, dense rt HH, reduced rt nlf, rt mild hemiparesis 4+/5, limited rt arm abduction above shoulder level but with continued effort able to raise; reduced pin on rt side compared to left, mild rt hyper-reflexia, gait not assessed 2/2 fall risk Review/Management Diagnosis/Plan: (1) recent occipital and left MCA stroke Plan: mri brain negative for acute stroke no oac with hx of ich, fall risk recs symptoms somewhat vague but does have expressive aphasia will check eeg check orthostatics may need outpatient vestibualr therapy needs urgent f/u with his neurologist next week to review hospital/office notes p.t. kashal d/c planning after above (2) Expressive aphasia (3) Paresthesia of both lower extremities Plan: on lyrica (4) CKD (chronic kidney disease) stage 3, GFR 30-59 ml/min (5) Hemorrhagic stroke (6) A-fib Plan: watchman device Problem Qualifiers (1) A-fib: Qualified Code: I48.2 - Chronic atrial fibrillation Kong Long MD Feb 19, 2017 10:14
--- NOTE | 2017-02-19 11:27 | HHI.PR ---
Subjective Remarks Up in chair Awake eating breakfast, no active cough but chewing bagel for a long time Afebrile (Jenny Plasencia) Objective Objective Results - Vital Signs Date Time Temp Pulse Resp B/P Pulse Ox O2 Delivery O2 Flow Rate FiO2 02/19/17 08:07 96.8 55 19 164/81 96 02/19/17 04:00 96.6 54 20 142/75 97 02/19/17 03:20 87 02/19/17 00:00 97.6 58 20 141/74 94 02/18/17 20:29 97.4 72 18 156/87 98 02/18/17 20:00 97.8 54 20 164/81 95 02/18/17 17:46 62 20 139/74 99 Nasal Cannula 2 02/18/17 16:43 58 19 139/74 97 Nasal Cannula 2 02/18/17 14:16 62 136/82 95 Room Air 02/18/17 12:36 94 Room Air 02/18/17 12:21 97.9 76 24 171/91 96 Room Air I/O 02/18/17 02/18/17 02/18/17 02/19/17 02/19/17 02/19/17 06:59 14:59 22:59 06:59 14:59 22:59 Intake Total 480 ml 1315 ml Output Total 1100 ml 800 ml Balance -620 ml 515 ml Intake Oral 480 ml 360 ml IV Total 955 ml Output Urine Total 1100 ml 800 ml # Voids 1 # Bowel Movements 1 (Jenny Plasencia) Result Diagram: 02/19/1717 02/19/1717 ROS General: Other (10 point ROS done positives noted) HEENT: Other (expressive dysphasia, debility) (Jenny Plasencia) Physical Exam Physical Exam PHYSICAL EXAMINATION GENERAL: This is a well-developed, well-nourished male Up in chair eating breakfast . He is alert and awake, HEAD: Normocephalic, atraumatic Facial features appear mildly asymmetrical from old CVA OROPHARYNGEAL: Oropharynx without erythema or edema. NECK: Supple. Trachea midline without deviation. CARDIAC: Regular rhythm, regular rate, S1 and S2 are heard. Soft systolic murmur LUNGS: Clear to auscultation bilaterally. ABDOMEN: Soft, nontender, no organomegaly or masses. Bowel sounds are heard in all four quadrants. No rebound. No guarding. EXTREMITIES: No edema. Pulses equal bilateral. NEUROLOGICAL: Patient mood and affect appropriate, but mild anxiety over not being able to get his words out SKIN:Warm and moist (Jenny Plasencia) A/P Assessment and Plan Vital signs monitored, she is afebrile BP within his normal trends Labs and MRI MRA reviewed, no acute hemorrhage noted, chronic old changes noted Monitor bowel regimen 1. TIA/CVA. Physical therapy and speech therapy orders. Patient has been up in chair this a.m., still having problems with expressive dysphasia Neuro consult appreciate input, history of subdural hematoma in July, history of paroxysmal atrial fibrillation MRA , MRI, no acute hemorrhage Bedside swallow showed no acute issues with aspiration, patient is chewing his food for an extended periods of time but no cough 2. History of high blood pressure Home medications started normal trends for him 3. hyperlipidemia medical management 4. paroxysmal atrial fibrillation, heart rate controlled with his home meds ill advance diet to a heart healthy diet. Discussed with patient Discussed with nurse Discussed with Dr. dong, seen on her behalf Discharge planning will be based on current findings and medical needs, will need extended therapy from speech therapy (Jenny Plasencia) Assessment and Plan patient seen and examined Appreciate neurology input does not recommend Oral anticoag sec to h/o ICH still with vision issues and some expressive aphasia EEG done awaiting results ok to d/c per neurology , if EEG neg and follow up outpatient DAVID with primary neurologist plan of care discussed with patient and at bedside discussed with Jenny EATON (Elisabet Dong MD) Jenny Plasencia Feb 19, 2017 11:27 Elisabet Dong MD Feb 19, 2017 17:37
[2017-02-19] MEDS: PREGABALIN 75 MG CAP PO SCH ×3 (13:00→17:00)
--- NOTE | 2017-02-19 15:13 | OTSOAPIP ---
TIME SESSION COMPLETED: 1430 PATIENT UNDERGOING EEG WILL REATTEMPT IN AM. Therapist: Jing Haas OTR/L Signature on file
--- NOTE | 2017-02-19 16:34 | EKG ---
Date Performed: 02/18/2017 Time Performed: 12:20:15 PTAGE: 82 years EKG: Sinus rhythm NORMAL ECG PREVIOUS TRACING 02/06/2017 18.18.09 Since previous tracing, heart rate has increased from 48 to 71, otherwise no significant change. DOCTOR: Yfn De Los Santos Interpretating Date/Time 02/19/2017 16:33:33
[2017-02-19] MEDS: SODIUM CHLORIDE 0.9% FLUSH 10 ML FLUSH IV FLUSH SCH (21:00)
[2017-02-20] VITALS (9 sets, daily range): BP systolic 115–148; BP diastolic 59–73; PULSE 20–110; RESP 18–20; TEMP 97.5–98.6; O2SAT 94–100
[2017-02-20] MEDS: PREGABALIN 75 MG CAP PO SCH ×3 (08:39→17:01)
[2017-02-20] MEDS: ASPIRIN 325 MG TAB PO SCH (08:40)
[2017-02-20] MEDS: METOPROLOL SUCCINATE 50 MG EXTENDED RELEASE TAB PO SCH (08:40)
[2017-02-20] MEDS: ATORVASTATIN 20 MG TAB PO SCH (08:40)
[2017-02-20] MEDS: NIFEdipine 90 MG SUSTAINED RELEASE TAB PO SCH (08:41)
--- NOTE | 2017-02-20 09:03 | MG ---
cc: ISAIAS CAVANAUGH MD Sex: M DATE OF STUDY: 02/19/2017 [id number] DATE OF : 1935 HISTORY: An 82 year-old gentleman with history of previous stroke, dizziness. DESCRIPTION: 6 to 7 Hz activity, 20 to 50 microvolts, some mild left posterior temporal region slowing. A couple tiny sharp transients epoch 22 left temporal region. Progressive slowing with transition into drowsy state followed by what appeared to be stage I sleep. Very tiny phase reversal at T3, epoch 45. Appropriate arousal sleep. Bursts of phase reversal, T3, epoch 64, tiny sharp transient T6 as well, epoch 64. Small sharp wave T4 epoch 81. photic driving with photic stimulation. Single lead EKG showing sinus rhythm. Burst phase reversal small sharp waves, epoch 122 at T3. INTERPRETATION: Mild asymmetric left hemispheric slowing with slight epileptogenic features, otherwise stable awake, sleep EEG. Clinical correlation. Isaias Cavanaugh MD MG/BERT /8:02 AM /8:50 AM OSEI
--- NOTE | 2017-02-20 09:41 | HHI.PR ---
Subjective Remarks Resting in bed but diet Up in chair while I was in the room for his safety Expressive dysphasia, remains but patient less anxious Afebrile No acute pain or shortness of breath (Jenny Plasencia) Objective Objective Results - Vital Signs Date Time Temp Pulse Resp B/P Pulse Ox O2 Delivery O2 Flow Rate FiO2 02/20/17 08:12 97.6 51 20 148/72 95 02/20/17 06:42 97.5 61 20 124/59 96 02/20/17 04:00 98.6 72 18 134/73 97 02/20/17 00:00 98.0 84 20 129/71 99 02/19/17 20:00 98.1 73 20 133/72 94 02/19/17 20:00 98.1 63 20 133/74 94 02/19/17 19:00 54 02/19/17 16:22 131/75 02/19/17 16:21 138/76 02/19/17 16:20 97.2 63 19 134/62 95 02/19/17 12:17 97.8 75 19 147/74 97 I/O 02/19/17 02/19/17 02/19/17 02/20/17 02/20/17 02/20/17 07:00 15:00 23:00 07:00 15:00 23:00 Intake Total 1315 ml 480 ml 480 ml Output Total 800 ml 450 ml 400 ml Balance 515 ml 30 ml 80 ml Intake Oral 360 ml 480 ml 480 ml IV Total 955 ml Output Urine Total 800 ml 450 ml 400 ml # Bowel Movements 0 (Jenny Plasencia) Result Diagram: 02/19/1791602/19/1717 ROS General: Weakness (weakness generalized but is able to weight-bear and get over in chair slowly), Other (10 point ROS done positives noted) Neuro/MS: Other (Jenny Plasencia) Physical Exam Physical Exam PHYSICAL EXAMINATION GENERAL: This is an elderly male who appears to be in no acute distress. He is alert and awake, speaking in one or 2 word sentences HEAD: Normocephalic without any lesion or mass noted. Facial features appear symmetric. OROPHARYNGEAL: Oropharynx without erythema or edema. NECK: Supple. No nuchal rigidity or lymphadenopathy. Trachea midline without deviation. CARDIAC: Regular rhythm, regular rate, S1 and S2 are heard. LUNGS: Clear to auscultation bilaterally. ABDOMEN: Soft, nontender, no organomegaly or masses. Bowel sounds are heard in all four quadrants. No rebound. No guarding. EXTREMITIES: no edema. Pulses equal bilateral. NEUROLOGICAL: Patient mood and affect less anxious today SKIN:Warm and moist (Jenny Plasencia) A/P Assessment and Plan Vital signs monitored, patient is afebrile BP within his normal trends, heart rate labile between 50s to 80s, denies any dizziness Labs and MRI MRA reviewed, no acute hemorrhage noted, chronic old changes noted , check labs in the morning Monitor bowel regimen 1. TIA/CVA. Physical therapy and speech therapy orders. Patient has been up in chair this a.m., still having problems with expressive dysphasia, but improved Neuro consult appreciate input, history of subdural hematoma in July, history of paroxysmal atrial fibrillation MRA , MRI, no acute hemorrhage Bedside swallow showed no acute issues with aspiration, swallow good Increase activity up in chair PT OT ST evaluate and treat 2. History of high blood pressure Home medications started normal trends for him, monitor heart rate for any symptoms 3. hyperlipidemia medical management 4. paroxysmal atrial fibrillation, heart rate controlled with his home meds ill advance diet to a heart healthy diet. Discussed with patient Discussed with nurse Discussed with Dr. dong, seen on her behalf Discharge planning, continuing to improve slowly, home versus rehabilitation with rolling walker, and OT and ST (Jenny Plasencia) Assessment and Plan Patient seen and examined EEG: some epileptiform spikes discussed with DR Long, will start antiepileptiform medications Needs rehab at discharge plan of care discussed with patient and at bedside discussed with Jenny EATON (Elisabet Dong MD) Jenny Plasencia Feb 20, 2017 09:41 Elisabet Dong MD Feb 20, 2017 15:43
--- NOTE | 2017-02-20 15:42 | HHI.PR ---
Review/Management Diagnosis/Plan: (1) recent occipital and left MCA stroke Plan: mri brain negative for acute stroke no oac with hx of ich, fall risk eeg- reviewed recs doing well lyrica 75mg tid p.t. eval rehab planning (2) Expressive aphasia (3) Paresthesia of both lower extremities Plan: on lyrica (4) CKD (chronic kidney disease) stage 3, GFR 30-59 ml/min (5) Hemorrhagic stroke (6) A-fib Plan: watchman device Subjective Subjective Comments No acute events reported No headache No chest pain No dyspnea no new events Active Medications Current Medications Medications (Trade) Dose Ordered Sig/Alejandro Route Start Time Stop Time Status Last Admin (D5-1/2 NS + KCl 20 Meq Inj) 1,000 ml @ 100 mls/hr Q10H IV 02/18/17 16:00 02/19/17 17:00 (NS Flush) 2 ml UNSCH PRN IV FLUSH 02/18/17 14:30 (NS Flush) 2 ml BID IV FLUSH 02/18/17 21:00 (Zofran Inj) 4 mg Q6H PRN IVP 02/18/17 14:30 (Narcan Inj) 0.4 mg UNSCH PRN IV 02/18/17 14:30 (Aspirin) 325 mg DAILY PO 02/19/17 09:00 02/20/17 08:40 (Lipitor) 20 mg DAILY PO 02/19/17 09:00 02/20/17 08:40 (Procardia Xl) 90 mg DAILY PO 02/19/17 09:00 02/20/17 08:41 (Lyrica) 75 mg TID PO 02/18/17 18:00 02/20/17 13:27 (Toprol Xl) 100 mg DAILY PO 02/19/17 09:00 02/20/17 08:40 Allergies Allergies Coded Allergies Motrin (Verified Allergy, Severe, Hallucinations, 02/18/17) Penicillin (Verified Allergy, Severe, DIZZY, 02/18/17) Review of Systems All other ROS: ROS reviewed as documented in chart Exam I&O / VS 02/19/17 02/19/17 02/20/17 14:59 22:59 06:59 Intake Total 480 ml 480 ml Output Total 450 ml 400 ml Balance 30 ml 80 ml Intake Oral 480 ml 480 ml Output Urine Total 450 ml 400 ml # Bowel Movements 0 Vital Signs Date Time Temp Pulse Resp B/P Pulse Ox O2 Delivery O2 Flow Rate FiO2 02/20/17 12:12 97.9 51 18 121/64 94 119/67 124/69 02/20/17 08:12 97.6 51 20 148/72 95 02/20/17 07:00 110 02/20/17 06:42 97.5 61 20 124/59 96 02/20/17 04:00 98.6 72 18 134/73 97 02/20/17 00:00 98.0 84 20 129/71 99 02/19/17 20:00 98.1 73 20 133/72 94 02/19/17 20:00 98.1 63 20 133/74 94 02/19/17 19:00 54 02/19/17 16:22 131/75 02/19/17 16:21 138/76 02/19/17 16:20 97.2 63 19 134/62 95 General: No acute distress Respiratory: Non-labored respirations Cardiology: Normal rate Musculoskeletal: Swelling, Other Neurologic: Alert Psychiatric: Cooperative Exam Comments alert, mild to moderate expressive aphasia, able to name objects, follows, dense rt HH, reduced rt nlf, rt mild hemiparesis 4+/5, limited rt arm abduction above shoulder level but with continued effort able to raise; reduced pin on rt side compared to left, mild rt hyper-reflexia, gait not assessed 2/2 fall risk Problem Qualifiers (1) A-fib: Qualified Code: I48.2 - Chronic atrial fibrillation Kong Long MD Feb 20, 2017 15:42
[2017-02-20] MEDS: levETIRAcetam 500 MG TAB PO SCH (17:01)
[2017-02-20] MEDS: SODIUM CHLORIDE 0.9% FLUSH 10 ML FLUSH IV FLUSH SCH (21:00)
[2017-02-21] VITALS (7 sets, daily range): BP systolic 119–141; BP diastolic 64–71; PULSE 47–63; RESP 18–48; TEMP 97.2–97.8; O2SAT 95–97
[2017-02-21] MEDS: D5-1/2 NS + KCL 20 MEQ INJ 1,000 ML IV SCH ×2 (04:00→15:22)
[2017-02-21] MEDS: levETIRAcetam 500 MG TAB PO SCH ×2 (06:00→17:22)
--- NOTE | 2017-02-21 07:15 | HHI.PR ---
Review/Management Diagnosis/Plan: (1) recent occipital and left MCA stroke Plan: mri brain negative for acute stroke no oac with hx of ich, fall risk eeg- reviewed recs neuro stable keppra low dose added lyrica 75mg tid p.t. eval rehab planning outpatient f/u (2) Expressive aphasia (3) Paresthesia of both lower extremities Plan: on lyrica (4) CKD (chronic kidney disease) stage 3, GFR 30-59 ml/min (5) Hemorrhagic stroke (6) A-fib Plan: watchman device Subjective Subjective Comments No acute events reported No headache No chest pain No dyspnea Active Medications Current Medications Medications (Trade) Dose Ordered Sig/Alejandro Route Start Time Stop Time Status Last Admin (D5-07/26 NS + KCl 20 Meq Inj) 1,000 ml @ 100 mls/hr Q10H IV 02/18/17 16:00 02/19/17 17:00 (NS Flush) 2 ml UNSCH PRN IV FLUSH 02/18/17 14:30 (NS Flush) 2 ml BID IV FLUSH 02/18/17 21:00 02/20/17 21:00 (Zofran Inj) 4 mg Q6H PRN IVP 02/18/17 14:30 (Narcan Inj) 0.4 mg UNSCH PRN IV 02/18/17 14:30 (Aspirin) 325 mg DAILY PO 02/19/17 09:00 02/20/17 08:40 (Lipitor) 20 mg DAILY PO 02/19/17 09:00 02/20/17 08:40 (Procardia Xl) 90 mg DAILY PO 02/19/17 09:00 02/20/17 08:41 (Lyrica) 75 mg TID PO 02/18/17 18:00 02/20/17 17:01 (Toprol Xl) 100 mg DAILY PO 02/19/17 09:00 02/20/17 08:40 (Keppra) 250 mg Q12H PO 02/20/17 18:00 02/21/17 06:00 Allergies Allergies Coded Allergies Motrin (Verified Allergy, Severe, Hallucinations, 02/18/17) Penicillin (Verified Allergy, Severe, DIZZY, 02/18/17) Review of Systems All other ROS: ROS reviewed as documented in chart Exam I&O / VS 7/02/20/17 02/21/17 15:00 23:00 07:00 Intake Total 360 ml Balance 360 ml Intake Oral 360 ml # Voids 2 1 # Bowel Movements 0 0 Vital Signs Date Time Temp Pulse Resp B/P Pulse Ox O2 Delivery O2 Flow Rate FiO2 02/21/17 04:00 97.7 57 48 125/68 95 02/20/17 19:49 98.5 20 20 130/62 100 123/59 115/59 02/20/17 19:00 90 02/20/17 16:00 98.0 57 19 119/61 95 120/71 115/60 02/20/17 12:12 97.9 51 18 121/64 94 119/67 124/69 02/20/17 08:12 97.6 51 20 148/72 95 General: No acute distress Respiratory: Non-labored respirations Cardiology: Normal rate Musculoskeletal: Swelling, Other Neurologic: Alert Psychiatric: Cooperative Exam Comments resting, easily arousable, mild to moderate expressive aphasia, able to name objects, follows, dense rt HH, reduced rt nlf, rt mild hemiparesis 4+/5, limited rt arm abduction above shoulder level but with continued effort able to raise; reduced pin on rt side compared to left, mild rt hyper-reflexia, gait not assessed 2/2 fall risk Problem Qualifiers (1) A-fib: Qualified Code: I48.2 - Chronic atrial fibrillation Kong Long MD Feb 21, 2017 07:15
[2017-02-21] MEDS: SODIUM CHLORIDE 0.9% FLUSH 10 ML FLUSH IV FLUSH SCH ×2 (09:05→22:00)
[2017-02-21] MEDS: ASPIRIN 325 MG TAB PO SCH (09:05)
[2017-02-21] MEDS: PREGABALIN 75 MG CAP PO SCH ×3 (09:05→17:22)
[2017-02-21] MEDS: ATORVASTATIN 20 MG TAB PO SCH (09:05)
[2017-02-21] MEDS: METOPROLOL SUCCINATE 50 MG EXTENDED RELEASE TAB PO SCH (09:05)
[2017-02-21] MEDS: NIFEdipine 90 MG SUSTAINED RELEASE TAB PO SCH (09:05)
[2017-02-21 10:23] LABS: HEMATOCRIT 43.5 % (39.0-51.0); MEAN CELL VOLUME 86.6 FL (80.0-100.0); MEAN CORPUSCULAR HEMOGLOBIN 28.9 PG (27.0-34.0); MEAN CORPUSCULAR HGB CONC 33.4 % (32.0-36.0); PLATELET COUNT 191 TH/MM3 (150-450); RED BLOOD COUNT 5.03 MIL/MM3 (4.50-5.90); REVIEW FLAG FINAL; WHITE BLOOD COUNT 7.7 TH/MM3 (4.0-11.0)
[2017-02-21 10:40] LABS: BICARBONATE 25.5 MEQ/L (21.0-32.0); POTASSIUM 3.8 MEQ/L (3.5-5.1)
--- NOTE | 2017-02-21 12:34 | HHI.PR ---
Subjective Subjective Remarks expressive aphasia oriented x 3 frustrated weaker on right leg no cp no sob at bsd Review of Systems Constitutional Constitutional Remarks 12 point ros difficult to obtain Vitals/Results Intake & Output 02/20/17 02/20/17 02/21/17 15:00 23:00 07:00 Intake Total 360 ml Balance 360 ml Intake Oral 360 ml # Voids 2 1 # Bowel Movements 0 0 Vital Signs Vital Signs Date Time Temp Pulse Resp B/P Pulse Ox O2 Delivery O2 Flow Rate FiO2 02/21/17 11:53 47 02/21/17 11:28 97.4 58 18 131/68 97 02/21/17 07:50 97.8 58 19 127/71 95 129/64 119/70 02/21/17 04:00 97.7 57 48 125/68 95 02/20/17 19:49 98.5 20 20 130/62 100 123/59 115/59 02/20/17 19:00 90 02/20/17 16:00 98.0 57 19 119/61 95 120/71 115/60 CBC/BMP: 02/21/17 0913 02/21/17 0913 Lab Results Laboratory Tests Test 02/21/17 09:13 White Blood Count 7.7 TH/MM3 Red Blood Count 5.03 MIL/MM3 Hemoglobin 14.5 GM/DL Hematocrit 43.5 % Mean Corpuscular Volume 86.6 FL Mean Corpuscular Hemoglobin 28.9 PG Mean Corpuscular Hemoglobin 33.4 % Concent Red Cell Distribution Width 14.0 % Platelet Count 191 TH/MM3 Mean Platelet Volume 10.4 FL Sodium Level 143 MEQ/L Potassium Level 3.8 MEQ/L Chloride Level 107 MEQ/L Carbon Dioxide Level 25.5 MEQ/L Anion Gap 11 MEQ/L Blood Urea Nitrogen 18 MG/DL Creatinine 1.42 MG/DL Estimat Glomerular Filtration 48 ML/MIN Rate Random Glucose 90 MG/DL Calcium Level 8.7 MG/DL Physical Exam General General Appearance: Well Developed, Well Nourished, No Acute Distress, Comfortable Eyes Eye Exam: Pupils Equal Ears & Nose Ears & Nose Exam: Nasal Mucosa [place] Throat Throat Exam: Oral Mucosa [place] & Moist Neck Neck Exam: Neck Supple, Trachea Midline Pulmonary Resp Exam: Clear Bilaterally, No Distress Cardiology CV Exam: Regular Gastrointestinal/Abdomen GI Exam: Soft, Non-Tender, Bowel Sounds Present, Non-Distended Musculoskeletal MS Exam: Joints Intact Integumentary Skin Exam: Warm, Dry Extremeties Extremities Exam: No Edema, Pedal Pulses Palpable Neurologic Neuro Exam: Alert, Awake, Moving All Extremities Neuro Remarks RLE weaker than LLE Psychiatric Psych Exam: Appropriate Responses VTE Prophylaxis VTE Prophylaxis Device: SCDs Assessment/Plan Problem List: (1) Hypertension (2) Hyperlipidemia (3) Expressive aphasia (4) A-fib (5) CKD (chronic kidney disease) stage 3, GFR 30-59 ml/min (6) History of CVA with residual deficit (7) Hx of subdural hemorrhage (8) recent occipital and left MCA stroke (9) poss seizure Assessment/Plan Hx of recent recent occipital left MCA stroke, prior history of subdural bleed. Has a watchman device Brain MRI negative for acute stroke Unable to have oral anticoagulation because of history of intracranial bleed EEG reviewed, findings of epileptiform features appreciate neuro input Pt. started on Keppra low-dose Seizure precautions PT/PT/ST Continue ASA 325 mg po daily Continue Lipitor 20 mg by mouth History of atrial fibrillation, sinus rhythm Continue Toprol Hypertension, stable Continue BP, continue Procardia Paresthesia lower extremities Continue with Lyrica CKD stage III, stable Continue to monitor BMP Avoid nephrotoxic agents Case management consultation for discharge planning possibly proximal, versus SNF, versus home health care with PT/OT/ST SCDs for DVT prophylaxis Possible discharge tomorrow Discussed with patient Discussed with nurse Discussed with Dr. Ren This patient was seen by myself and Dr. Ren, this note is written on his behalf Problem Qualifiers (1) Hypertension: Qualified Code: I10 - Essential hypertension (2) Hyperlipidemia: Qualified Code: E78.5 - Hyperlipidemia, unspecified hyperlipidemia type (3) A-fib: Qualified Code: I48.0 - Paroxysmal atrial fibrillation Radha Kumar Feb 21, 2017 12:34
[2017-02-22 00:32] VITALS: BP 135/68; PULSE 53; RESP 20; TEMP 97.8; O2SAT 96
[2017-02-22 05:03] VITALS: BP 130/70; PULSE 58; RESP 18; TEMP 98.1; O2SAT 94
[2017-02-22] MEDS: levETIRAcetam 500 MG TAB PO SCH ×2 (06:10→18:05)
[2017-02-22 07:29] VITALS: BP 137/73; PULSE 58; RESP 18; TEMP 97.8; O2SAT 95
[2017-02-22] MEDS: ATORVASTATIN 20 MG TAB PO SCH (08:22)
[2017-02-22] MEDS: METOPROLOL SUCCINATE 50 MG EXTENDED RELEASE TAB PO SCH (08:22)
[2017-02-22] MEDS: ASPIRIN 325 MG TAB PO SCH (08:22)
[2017-02-22] MEDS: PREGABALIN 75 MG CAP PO SCH ×3 (08:22→18:05)
[2017-02-22] MEDS: NIFEdipine 90 MG SUSTAINED RELEASE TAB PO SCH (08:23)
[2017-02-22] MEDS: SODIUM CHLORIDE 0.9% FLUSH 10 ML FLUSH IV FLUSH SCH (08:23)
--- NOTE | 2017-02-22 10:18 | HHI.PR ---
Subjective Subjective Remarks expressive aphasia oriented x 3 states he wants rehab, doesn't feel comfortable going home no cp no sob no family at bsd ambulating with assistance, contact guard required Review of Systems Constitutional Constitutional Remarks 12 point ros difficult to obtain Vitals/Results Intake & Output 02/21/17 02/21/17 02/22/17 14:59 22:59 06:59 Intake Total 240 ml 240 ml 480 ml Balance 240 ml 240 ml 480 ml Intake Oral 240 ml 240 ml 480 ml # Voids 1 2 3 Vital Signs Vital Signs Date Time Temp Pulse Resp B/P Pulse Ox O2 Delivery O2 Flow Rate FiO2 02/22/17 07:29 97.8 58 18 137/73 95 02/22/17 05:03 98.1 58 18 130/70 94 02/22/17 00:32 97.8 53 20 135/68 96 02/21/17 20:12 97.2 58 21 124/64 96 02/21/17 20:00 63 02/21/17 15:16 97.4 55 18 141/68 97 02/21/17 11:53 47 02/21/17 11:28 97.4 58 18 131/68 97 CBC/BMP: 02/21/17 0913 02/21/17 0913 Physical Exam General General Appearance: Well Developed, Well Nourished, No Acute Distress, Comfortable Eyes Eye Exam: Pupils Equal Ears & Nose Ears & Nose Exam: Nasal Mucosa [place] Throat Throat Exam: Oral Mucosa [place] & Moist Neck Neck Exam: Neck Supple, Trachea Midline Pulmonary Resp Exam: Clear Bilaterally, No Distress Cardiology CV Exam: Regular Gastrointestinal/Abdomen GI Exam: Soft, Non-Tender, Bowel Sounds Present, Non-Distended Musculoskeletal MS Exam: Joints Intact Integumentary Skin Exam: Warm, Dry Extremeties Extremities Exam: No Edema, Pedal Pulses Palpable Neurologic Neuro Exam: Alert, Awake, Moving All Extremities Neuro Remarks RLE weaker than LLE Psychiatric Psych Exam: Appropriate Responses VTE Prophylaxis VTE Prophylaxis Device: SCDs Assessment/Plan Problem List: (1) Hypertension (2) Hyperlipidemia (3) Expressive aphasia (4) A-fib (5) CKD (chronic kidney disease) stage 3, GFR 30-59 ml/min (6) History of CVA with residual deficit (7) Hx of subdural hemorrhage (8) recent occipital and left MCA stroke (9) poss seizure Assessment/Plan Hx of recent recent occipital left MCA stroke, prior history of subdural bleed. Has a watchman device Brain MRI negative for acute stroke Unable to have oral anticoagulation because of history of intracranial bleed EEG reviewed, findings of epileptiform features appreciate neuro input Pt. started on Keppra low-dose Seizure precautions PT/PT/ST Continue ASA 325 mg po daily Continue Lipitor 20 mg by mouth History of atrial fibrillation, sinus rhythm Continue Toprol Hypertension, stable Continue BP, continue Procardia Paresthesia lower extremities Continue with Lyrica CKD stage III, stable Avoid nephrotoxic agents Case management consultation for discharge planning -versus SNF, versus home health care with PT/OT/ST Doesn't meet criteria for CIR SCDs for DVT prophylaxis Possible discharge today or tomorrow Discussed with patient Discussed with nurse Discussed with Dr. Ren Discussed with CM This patient was seen by myself and Dr. Ren, this note is written on his behalf Problem Qualifiers (1) Hypertension: Qualified Code: I10 - Essential hypertension (2) Hyperlipidemia: Qualified Code: E78.5 - Hyperlipidemia, unspecified hyperlipidemia type (3) A-fib: Qualified Code: I48.0 - Paroxysmal atrial fibrillation Radha Kumar Feb 22, 2017 10:18
[2017-02-22 11:30] VITALS: BP_SYST 119; BP_SYST 123; BP_SYST 124; BP_DIAS 59; BP_DIAS 66; BP_DIAS 74; PULSE 54; RESP 18; TEMP 97.6; O2SAT 96
[2017-02-22] MEDS ORDERED: LEVE500 PO (14:19)
--- NOTE | 2017-02-22 14:19 | HHI.DCPOC ---
Discharge Care Plan Diagnosis: (1) poss seizure (2) History of CVA with residual deficit (3) Hx of subdural hemorrhage (4) Hypertension (5) Hyperlipidemia Your Health Problems Are: Anxiety Difficulty with ADL Goals to Promote Your Health * To prevent worsening of your condition and complications * To maintain your health at the optimal level Directions to Meet Your Goals Take your medications as prescribed Follow your dietary instruction Follow activity as directed Keep your appointments as scheduled Take your immunizations and boosters as scheduled If your symptoms worsen call your PCP, if no PCP go to Urgent Care Center or Emergency Room Smoking is Dangerous to Your Health. Avoid second hand smoke Call the 24-hour hour crisis hotline for domestic abuse at Radha Kumar [facility] Feb 22, 2017 14:19
--- NOTE | 2017-02-22 14:41 | HHI.FF ---
Face to Face Verification Diagnosis: (1) History of CVA with residual deficit (2) poss seizure (3) Hx of subdural hemorrhage (4) Hypertension (5) Hyperlipidemia Physical Therapy Order: Evaluate and Treat Speech Therapy Order: To Improve: Speech and communication skills Home Health Nursing Order: Medical education Nursing assessment with vital signs Incident Analyst Order: To Evaluate: Support services I have seen patient Roberto Hope on 02/22/17. My clinical findings support the need for the requested home health care services because: Limited ability to care for self Need for psychosocial assistance Impaired cognition/judgement I certify that my clinical findings support that this patient is homebound because: Impaired cognitive ability/safety Need for psychosocial assistance Radha Kumar [facility] Feb 22, 2017 14:41
[2017-02-22] MEDS ORDERED: WALKER WHEELS/F1 MIS (14:52)
--- NOTE | 2017-02-22 15:19 | HHI.PR ---
Review/Management Diagnosis/Plan: (1) recent occipital and left MCA stroke Plan: mri brain negative for acute stroke no oac with hx of ich, fall risk eeg- reviewed recs doing well ready to go home they will f/u with Dr. Gucci jessica low dose added lyrica 75mg tid p.t. eval (2) Expressive aphasia (3) Paresthesia of both lower extremities Plan: on lyrica (4) CKD (chronic kidney disease) stage 3, GFR 30-59 ml/min (5) Hemorrhagic stroke (6) A-fib Plan: watchman device Subjective Subjective Comments No acute events reported No headache No chest pain No dyspnea Active Medications Current Medications Medications (Trade) Dose Ordered Sig/Alejandro Route Start Time Stop Time Status Last Admin (NS Flush) 2 ml UNSCH PRN IV FLUSH 02/18/17 14:30 (NS Flush) 2 ml BID IV FLUSH 02/18/17 21:00 02/22/17 08:23 (Zofran Inj) 4 mg Q6H PRN IVP 02/18/17 14:30 (Narcan Inj) 0.4 mg UNSCH PRN IV 02/18/17 14:30 (Aspirin) 325 mg DAILY PO 02/19/17 09:00 02/22/17 08:22 (Lipitor) 20 mg DAILY PO 02/19/17 09:00 02/22/17 08:22 (Procardia Xl) 90 mg DAILY PO 02/19/17 09:00 02/22/17 08:23 (Lyrica) 75 mg TID PO 02/18/17 18:00 02/22/17 12:15 (Toprol Xl) 100 mg DAILY PO 02/19/17 09:00 02/22/17 08:22 (Keppra) 250 mg Q12H PO 02/20/17 18:00 02/22/17 06:10 Allergies Allergies Coded Allergies Motrin (Verified Allergy, Severe, Hallucinations, 02/18/17) Penicillin (Verified Allergy, Severe, DIZZY, 02/18/17) Review of Systems All other ROS: ROS reviewed as documented in chart Exam I&O / VS 02/21/17 02/21/17 02/22/17 15:00 23:00 07:00 Intake Total 240 ml 240 ml 480 ml Balance 240 ml 240 ml 480 ml Intake Oral 240 ml 240 ml 480 ml # Voids 1 2 3 Vital Signs Date Time Temp Pulse Resp B/P Pulse Ox O2 Delivery O2 Flow Rate FiO2 02/22/17 11:30 97.6 54 18 124/66 96 123/74 119/59 02/22/17 07:29 97.8 58 18 137/73 95 02/22/17 05:03 98.1 58 18 130/70 94 02/22/17 00:32 97.8 53 20 135/68 96 02/21/17 20:12 97.2 58 21 124/64 96 02/21/17 20:00 63 General: No acute distress Respiratory: Non-labored respirations Cardiology: Normal rate Musculoskeletal: Swelling, Other Neurologic: Alert Psychiatric: Cooperative Exam Comments alert, ox 2-3, mild to moderate expressive aphasia, able to name objects, follows, dense rt HH, reduced rt nlf, rt mild hemiparesis 4+/5, limited rt arm abduction above shoulder level but with continued effort able to raise; reduced pin on rt side compared to left, mild rt hyper-reflexia, gait not assessed 2/2 fall risk Problem Qualifiers (1) A-fib: Qualified Code: I48.0 - Paroxysmal atrial fibrillation Kong Long MD Feb 22, 2017 15:19
[2017-02-22 15:35] VITALS: BP 132/74; PULSE 52; RESP 19; TEMP 97.3; O2SAT 95
--- NOTE | 2017-02-22 17:35 | HHI.DS ---
Discharge Summary Admission Date Feb 22, 2017 at 14:16 Discharge Date: Feb 22, 2017 Admitting Diagnosis CVA, paroxysmal atrial fibrillation, (1) Expressive aphasia (2) recent occipital and left MCA stroke (3) poss seizure (4) Paresthesia of both lower extremities (5) Hx of subdural hemorrhage (6) Hypertension (7) Hyperlipidemia (8) CKD (chronic kidney disease) stage 3, GFR 30-59 ml/min (9) Left leg numbness (10) Impaired mobility and activities of daily living CBC/BMP: 02/21/17 0913 02/21/17 0913 Significant Findings Laboratory Tests Test 02/21/17 09:13 Creatinine 1.42 MG/DL (0.60-1.30) Estimat Glomerular Filtration 48 ML/MIN (>89) Rate Imaging Last Impressions Head CT 02/18/17 1228 Signed Impressions: Service Date/Time: Saturday, February 18, 2017 13:10 - CONCLUSION: 1. No acute intracranial abnormality or interval change. 2. Stable 6-7 mm posterior left subdural hygroma. 3. Stable and subtle malacia defect in the left posterior parietal and right occipital lobes consistent with prior infarcts. Rajinder Aguayo MD Head Magnetic Resonance Angiography 02/18/17 0000 Signed Impressions: Service Date/Time: Saturday, February 18, 2017 15:58 - CONCLUSION: 1. Unremarkable MRA examination of the brain. No evidence for large vessel occlusion, aneurysm , or vascular malformation. Rajinder Aguayo MD Brain MRI 02/18/17 0000 Signed Impressions: Service Date/Time: Saturday, February 18, 2017 15:58 - CONCLUSION: 1. No acute infarction, hemorrhage, or other acute abnormality. 2. Stable 8 mm left posterior parietal subdural hygroma. 3. Stable left posterior parietal and right occipital encephalomalacia. Rajinder Aguayo MD Hospital Course The patient is an 82-year-old gentleman with past medical history significant for hemorrhagic subdural hematoma on July of 2016, a right occipital lobe CVA in July 2015 followed by left MCA CVA likely embolic with petechia hemorrhage one week later. At that time, the patient was started on Pradaxa per cardiology which was discontinued after his subdural hematoma in July of this year. The patient also has history of hypertension, osteoarthritis, atrial fibrillation and cataracts. The patient had presented to [place] emergency room two weeks ago with complaints of hemianopsia visual defect which, according to the ER physician, lasted only about 10-15 minutes and resolved. The patient was discharged to home on aspirin with plan to follow up with neurology. The patient woke up this morning at 9:00 a.m. with complaints of dysarthria and loss of vision in his left eye. He denies any headache, denied any focal extremity deficits. He felt weak in bilateral upper and lower extremities. He felt dizzy and was complaining of vertigo. The patient was compliant with his aspirin. Recently, the patient had some nathaly of device placed by cardiology. The patient had a CT scan in the emergency room which was negative for any acute bleed or stroke. LABORATORY DATA WBC count of 8.4, hemoglobin 14.5, hematocrit 44.2, platelet count of 208. Chemistry shows sodium 138, potassium 4.1, chloride 106, bicarb 33.4, BUN 16, creatinine of 1.49, glucose 126, troponin is negative, AST 21, ALT 24, alkaline phosphatase 81, total protein 8.1, albumin 3.6, INR of 1.0. UA is negative. IMAGING STUDIES At this point a CT scan of the head shows no acute intracranial abnormality or interval changes, a stable 6-7 mm posterior left subdural hygroma. The patient also has stable encephalomalacia defect in the left posterior parietal and right occipital lobes consistent with prior infarct. MRI of the brain was done which shows no acute infarction, hemorrhage or other acute abnormalities. As mentioned above, evidence of prior episodes of CVA. MRA of the head was done which is unremarkable too. Pt. was admitted for further evaluation: The patient is an 82-year-old gentleman who presented to the ER with vision changes and dysarthria. Symptoms appeared to be slowly improving. 1. TIA/CVA. The patient has currently taking his aspirin for the day. Consulted neurology, Dr. Long. There was no evidence of acute CVA on CT head and MRI, MRA of the head. Attending held on advancing anticoagulation until neurology recommendations given the patient's history of subdural hematoma in July and also petechial hemorrhages in the past. The patient is, however, at high risk of further strokes given his history of paroxysmal atrial fibrillation. History of high blood pressure, hyperlipidemia, paroxysmal atrial fibrillation currently rate controlled. Continue metoprolol, nifedipine and atorvastatin. Continued aspirin. Consulted PT and OT. Bedside swallow eval. done, pt. passed. Diet advanced. Dr. Long evaluated. Recommended to continue ASA, no OAC due to risk of bleed. Pt. had watchman device placed due to this. EEG ordered, results noted epileptiform features Pt. started on Keppra low-dose, tolerated well Seizure precautions instituted PT/OT/ST ordered History of atrial fibrillation, sinus rhythm Continued Toprol Hypertension, stable Continued BP meds, continue Procardia Paresthesia lower extremities Continue with Lyrica CKD stage III, stable Avoided nephrotoxic agents Case management consultation for discharge planning [facility], did not meet criteria for SNF or CIR Pt. stable for dc, had expressive aphasia but able to converse when he took time. Was ambulating with walker and minimal assist. Cleared for dc by neurology Pt. instructed to f/u with neurology Fall precautions Seizure precautions, no driving, no swimming, no climbing Diet-heart healthy Doesn't meet criteria for CIR Pt Condition on Discharge: Stable Discharge Disposition: Disch w/ Home Health Serv Discharge Instructions DIET: Follow Instructions for: Heart Healthy Diet Activities you can perform: Weight Bearing as [place] Other Activity Instructions: NO DRIVING, NO SWIMMING, NO CLIMBING, NO OPERATING HEAVY MACHINERY Follow up Referrals: Neurology - 2 Weeks with Kong Long MD PCP Follow-up New Medications: Walker with Front Wheels (Walker with Front Wheels) 1 Mis Mis 1 EA .ROUTE DIRECTED #1 Ref 0 EA Levetiracetam (Keppra) 500 Mg Tab 250 MG PO Q12H Seizure Control #30 Ref 1 TAB Continued Medications: Aspirin (Aspirin) 81 Mg Chew 325 MG CHEW DAILY Ref 0 TAB Atorvastatin (Atorvastatin) 20 Mg Tab 20 MG PO DAILY Cholesterol Management #30 Ref 0 TAB Metoprolol Succinate ER 24 HR (Metoprolol Succinate ER 24 HR) 100 Mg Tab 100 MG PO DAILY #30 Ref 0 TAB Nifedipine (Nifedipine ER) 90 Mg Tab 90 MG PO DAILY Pregabalin (Lyrica) 75 Mg Cap 75 MG PO TID #90 Ref 0 CAP Radha Kumar Feb 22, 2017 17:35
== END 2017-02-22 19:41 | disposition home health service (06) | DRG 69 ==
LOC: NEPC 12:09 → NEDA 14:13 → OBSVTOIN 14:13 → NEDA 14:14 → INTOOBSV 14:14 → UNDOADMOB 14:14 → NEDA 18:29 → N05B 18:29 → INTOOBSV 02-22 14:16 → OBSVTOIN 02-22 14:16 → UNDODISOB 02-22 19:41
PROVIDERS: ADMIT Internal Medicine; ATTEND Internal Medicine
DX: G45.9 Transient cerebral ischemic attack, unspecified (principal); I69.351 Hemiplegia and hemiparesis following cerebral infarction affecting right dominant side; I48.0 Paroxysmal atrial fibrillation; N18.3 Chronic kidney disease, stage 3 (moderate); R47.01 Aphasia; I12.9 Hypertensive chronic kidney disease with stage 1 through stage 4 chronic kidney disease, or unspecified chronic kidney disease; E78.5 Hyperlipidemia, unspecified; Z79.82 Long term (current) use of aspirin; H91.90 Unspecified hearing loss, unspecified ear; H54.62 Unqualified visual loss, left eye, normal vision right eye; E78.00 Pure hypercholesterolemia, unspecified; R47.1 Dysarthria and anarthria; M19.90 Unspecified osteoarthritis, unspecified site; R29.810 Facial weakness; M51.36 Other intervertebral disc degeneration, lumbar region; F41.9 Anxiety disorder, unspecified
CPT/HCPCS: 70450; 70544; 70553; 80048; 80053; 81001; 82550; 84484; 85025; 85027; 85610; 93005; 95819; A9577; G8987-GP; G8988-GP; J3480

== ENCOUNTER 2017-09-15 01:16 | Inpatient (IN) | payer MEDICARE, OTHER ==
[~2017-09-15] VITALS: Ht 185.4 cm; Wt 128.9 kg
[2017-09-15] VITALS (15 sets, daily range): BP systolic 110–149; BP diastolic 59–99; PULSE 74–88; RESP 16–25; TEMP 96–98; O2SAT 94–99
[~2017-09-15 01:16] MED LIST changes: +ASPI-516 CHEW; -ASPI81CH CHEW; +LEVE500 PO; -METO100T9 PO; +METO1TAB43 PO; -ONETAB9 PO; +WALKER WHEELS/F1 MIS
[2017-09-15] MEDS ORDERED: SODIUM CHLOR 0.9% 1000 ML INJ 1,000 ML IV ONE (01:25)
[2017-09-15] MEDS ORDERED: IODIXANOL 320 MG/ML 10 ML VIAL (for Rad CT) IVCONTRAST ONE (01:31)
[2017-09-15 01:32] LABS: AUTOMATED NEUTROPHIL # 2.6 TH/MM3 (1.8-7.7); BASOPHIL # 0.1 TH/MM3 (0-0.2); BASOPHIL % 1.5 % (0.0-2.0); EOSINOPHIL # 0.7 TH/MM3 (0-0.4); EOSINOPHIL % 11.7 % (0.0-4.0); HEMATOCRIT 43.2 % (39.0-51.0); HEMOGLOBIN 14.4 GM/DL (13.0-17.0); LYMPH % 33.3 % (9.0-44.0); LYMPHOCYTE # 2.1 TH/MM3 (1.0-4.8); MEAN CELL VOLUME 88.7 FL (80.0-100.0); MEAN CORPUSCULAR HEMOGLOBIN 29.5 PG (27.0-34.0); MEAN CORPUSCULAR HGB CONC 33.3 % (32.0-36.0); MEAN PLATELET VOLUME 10.7 FL (7.0-11.0); MONO % 11.4 % (0.0-8.0); MONOCYTE # 0.7 TH/MM3 (0-0.9); NEUT % 42.1 % (16.0-70.0); PLATELET COUNT 165 TH/MM3 (150-450); RED BLOOD COUNT 4.87 MIL/MM3 (4.50-5.90); RED CELL DISTRIBUTION WIDTH 14.5 % (11.6-17.2); WHITE BLOOD COUNT 6.2 TH/MM3 (4.0-11.0)
--- NOTE | 2017-09-15 01:40 | RADRPT ---
EXAM DATE/TIME: 09/15/2017 01:24 [place] COMPARISON: MRI BRAIN W & W/O CONTRAST, February 18, 2017, 15:58. CT BRAIN W/O CONTRAST, February 18, 2017, 13:10. INDICATIONS : Left sided weakness. RADIATION DOSE: 42.36 CTDIvol (mGy) This report was called by Dr. Nuñez to Dr. Foster at 1331 hrs. MEDICAL HISTORY : Non-responsive. SURGICAL HISTORY : Non-responsive. ENCOUNTER: Initial ACUITY: 1 day PAIN SCALE: Non-responsive LOCATION: cranial TECHNIQUE: Multiple contiguous axial images were obtained of the head. Using automated exposure control and adj ustment of the mA and/or kV according to patient size, radiation dose was kept as low as reasonably a chievable to obtain optimal diagnostic quality images. DICOM format image data is available electro nically for review and comparison. FINDINGS: CEREBRUM: The ventricles are normal for age with diffuse moderate atrophic change. There are stable areas of en cephalomalacia involving the left parietal lobe and right occipital lobe consistent with bone infarct ions. There is a stable lacunar infarct in the right basal ganglia as well. No evidence of midline sh ift, mass lesion, hemorrhage or acute infarction. No extra-axial fluid collections are seen. POSTERIOR FOSSA: The brainstem is intact. There is a low density region in the right cerebellar hemisphere not seen on the prior studies. This measures up to approximately 1.3 x 0.9 cm. The 4th ventricle is midline. Th e cerebellopontine angle is unremarkable. EXTRACRANIAL: The visualized portion of the orbits is intact. SKULL: The calvaria is intact. No evidence of skull fracture. CONCLUSION: 1. Stable remote areas of infarction involving the left parietal lobe and right occipital lobe. 2. Small low-attenuation area now noted in the right cerebellar hemisphere not seen on the prior stud ies. This likely represents interval infarction. 3. Diffuse atrophic change and small lacunar infarct in the right basal ganglia. 4. No acute hemorrhage or mass effect. Sebastian Nuñez MD on September 15, 2017 at 1:30 Board Certified Radiologist. This report was verified electronically.
[2017-09-15 01:44] LABS: INTERNATIONAL NORMALIZED RATIO 1.3 RATIO; PROTHROMBIN TIME - PATIENT 13.4 SEC (9.8-11.6)
[2017-09-15 01:54] LABS: TROPONIN I LESS THAN 0.02 NG/ML (0.02-0.05)
--- NOTE | 2017-09-15 01:57 | RADRPT ---
EXAM DATE/TIME: 09/15/2017 01:31 [facility] COMPARISON: MRA BRAIN W/O CONTRAST, February 18, 2017, 15:58. MRA CAROTIDS W CONTRAST, July 31, 2015, 19:14. INDICATIONS : Left sided weakness. IV CONTRAST: 50 cc Visipaque (iodixanol) IV ; Cumulative dose for multiple exams. RADIATION DOSE: 26.13 CTDIvol (mGy) ; Combined studies MEDICAL HISTORY : Non-responsive. SURGICAL HISTORY : Non-responsive. ENCOUNTER: Initial ACUITY: 1 day PAIN SCALE: Non-responsive LOCATION: cranial TECHNIQUE: Volumetric scanning was performed using a multi-row detector CT scanner. The data was post processed with a variety of visualization algorithms including full volume maximum intensity projection, multi -planar sliding thin slab reformation, curved planar reformation, and surface rendering techniques. Using automated exposure control and adjustment of the mA and/or kV according to patient size, radiat ion dose was kept as low as reasonably achievable to obtain optimal diagnostic quality images. DICO M format image data is available electronically for review and comparison. FINDINGS: There is excellent visualization of the major intracranial arteries out to the second-order branch ve ssels. There is no evidence for aneurysm, vessel truncation or stenosis, and no evidence for vascula r malformation. CONCLUSION: Unremarkable exam. Sebastian Nuñez MD on September 15, 2017 at 1:53 Board Certified Radiologist. This report was verified electronically.
--- NOTE | 2017-09-15 02:05 | RADRPT ---
EXAM DATE/TIME: 09/15/2017 01:31 [facility] COMPARISON: MRA CAROTIDS W CONTRAST, July 31, 2015, 19:14. INDICATIONS : Left sided weakness. IV CONTRAST: 50 cc Visipaque (iodixanol) IV RADIATION DOSE: 28.13 CTDIvol (mGy) MEDICAL HISTORY : Non-responsive. SURGICAL HISTORY : Non-responsive. ENCOUNTER: Initial ACUITY: 1 day PAIN SCALE: Non-responsive LOCATION: cranial Elevated flow velocities and ICA/CCA ratios have been found to correlate with increased degrees of vessel stenosis, calculated as percentage of diameter relative to a normal segment of distal ICA/CCA. TECHNIQUE: Volumetric scanning was performed using a multirow detector CT scanner. The data was post processed with a variety of visualization algorithms including full-volume maximum intensity projection, multip lanar sliding thin-slab reformation, curved-planar reformation, and surface-rendering techniques. Us ing automated exposure control and adjustment of the mA and/or kV according to patient size, radiatio n dose was kept as low as reasonably achievable to obtain optimal diagnostic quality images. DICOM f ormat image data is available electronically for review and comparison. FINDINGS: AORTIC ARCH: There is a three-vessel origin of the great vessels from the aorta. No evidence of ostial narrowing. RIGHT CAROTID: The common carotid artery is intact. Minimal calcification is present. The carotid bulb has a normal configuration without ulceration or narrowing. The internal carotid artery lumen is smooth without st enosis. The external carotid artery is intact. LEFT CAROTID: The common carotid artery is intact. Minimal calcification is present. There is slight The carotid bu lb has a normal configuration without ulceration or narrowing. The internal carotid artery lumen is smooth without stenosis. The external carotid artery is intact. VERTEBRALS: The vertebral arteries have a symmetric diameter. No stenotic lesions are seen. CONCLUSION: Minimal calcification with no evidence of stenosis. Sebastian Nuñez MD on September 15, 2017 at 1:59 Board Certified Radiologist. This report was verified electronically.
--- NOTE | 2017-09-15 02:32 | PD ---
HPI Chief Complaint: Stroke Alert Time Seen by Provider: 01:25 Travel History International Travel<30 days: No Contact w/Intl Traveler<30days: No Traveled to known affect area: No History of Present Illness HPI 82-year-old male arrives a stroke alert. Approximately 30 minutes prior to ER arrival he was watching a movie with his significant other when he became dysarthric. Left upper extremity weakness was observed. EMS notes the same. Upon arrival here the patient denies pain. Onset sudden. Timing constant. Severity moderate. He denies use of anticoagulation. PFSH Past Medical History Hx Anticoagulant Therapy: Yes (ASA) Arthritis: Yes (NECK AND SPINE) Asthma: No Autoimmune Disease: No Anxiety: No Depression: No Heart Rhythm Problems: Yes (ATRIAL FIBRILLATION WITH RVR) Cancer: No Cardiovascular Problems: Yes (htn, ) High Cholesterol: Yes (HYPERLIPIDEMIA) Chemotherapy: No Chest Pain: No Congestive Heart Failure: No COPD: No Cerebrovascular Accident: Yes (Multiple) Diabetes: No Diminished Hearing: Yes Endocrine: No Gastrointestinal Disorders: No GERD: No Glaucoma: No Genitourinary: No Headaches: No Hepatitis: No Hiatal Hernia: No Heparin Induced Thrombocytopen: No Hypertension: Yes Immune Disorder: No Implanted Vascular Access Dvce: No Kidney Stones: No Medical other: Yes (BACK ARTHRITIS) Musculoskeletal: Yes 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) Psychiatric: No Reproductive: No Respiratory: No Immunizations Current: Yes Migraines: No Radiation Therapy: No Renal Failure: No Seizures: No Sickle Cell Disease: No Sleep Apnea: No Thyroid Disease: No Ulcer: No Past Surgical History Abdominal Surgery: Yes (APPENDECTOMY IN 3RD GRADE) AICD: No Arteriovenous Shunt: No Cardiac Surgery: No Ear Surgery: No Endocrine Surgery: No Eye Surgery: Yes (BILATERAL CATARACT EXTRACT) Genitourinary Surgery: No Gynecologic Surgery: No Insulin Pump: No Joint Replacement: No Neurologic Surgery: No Oral Surgery: Yes (TONSILLECTOMY REMOVAL IN 3RD GRADE) Pacemaker: No Thoracic Surgery: No Other Surgery: Yes (WATCHMAN, FILTER IN HIS HEART) Social History Alcohol Use: No Tobacco Use: No Substance Use: No Allergies-Medications (Allergen,Severity, Reaction): Coded Allergies: ibuprofen (Unverified Allergy, Severe, Hallucinations, 03/08/17) penicillin G (Unverified Allergy, Severe, DIZZY, 8/15/17) Reported Meds & Prescriptions Reported Meds & Active Scripts Active Walker with Front Wheels (Device) 1 Mis Mis 1 Ea .ROUTE DIRECTED Keppra (Levetiracetam) 500 Mg Tab 250 Mg PO Q12H Reported Lyrica (Pregabalin) 75 Mg Cap 75 Mg PO TID Aspirin 81 Mg Chew 325 Mg CHEW DAILY Metoprolol Succinate ER 24 HR (Metoprolol Succinate) 100 Mg Tab 100 Mg PO DAILY Nifedipine ER (Nifedipine) 90 Mg Tab 90 Mg PO DAILY Atorvastatin (Atorvastatin Calcium) 20 Mg Tab 20 Mg PO DAILY Review of Systems Except as stated in HPI: all other systems reviewed are Neg General / Constitutional: No: Fever Physical Exam Narrative GENERAL: 82-year-old male well-nourished well-developed mild distress secondary to weakness and/or anxiety Vital Signs Date Time Temp Pulse Resp B/P (MAP) Pulse Ox O2 Delivery O2 Flow Rate FiO2 09/15/17 02:21 75 17 114/68 (83) 98 Nasal Cannula 2.00 09/15/17 02:02 85 25 118/59 (78) 98 Nasal Cannula 2.00 09/15/17 01:55 97.9 86 18 129/80 (96) 99 Nasal Cannula 2.00 09/15/17 01:30 80 20 120/70 (87) 99 Nasal Cannula 2.00 09/15/17 01:26 99 Nasal Cannula 2.00 09/15/17 01:16 97 Nasal Cannula 2.00 09/15/17 01:16 97.8 77 18 129/72 (91) SKIN: Warm and dry. HEAD: Atraumatic. Normocephalic. EYES: Pupils equal and round. No scleral icterus. No injection or drainage. ENT: No nasal bleeding or discharge. Mucous membranes pink and moist. NECK: Trachea midline. No JVD. CARDIOVASCULAR: Regular rate and rhythm. RESPIRATORY: No accessory muscle use. Clear to auscultation. Breath sounds equal bilaterally. GASTROINTESTINAL: Abdomen soft, non-tender, nondistended. Hepatic and splenic margins not palpable. MUSCULOSKELETAL: Extremities without clubbing, cyanosis, or edema. No obvious deformities. NEUROLOGICAL: There is a facial droop on the left side. There is mild dysarthria. There is no aphasia. The handgrip is markedly decreased on left compared to right. There is a pronator drift with weakness in the left side. Patient unable to cooperate with examination of the lower extremities. PSYCHIATRIC: Appropriate mood and affect; insight and judgment normal. Data Data Last Documented VS Vital Signs Date Time Temp Pulse Resp B/P (MAP) Pulse Ox O2 Delivery O2 Flow Rate FiO2 09/15/17 02:21 75 17 114/68 (83) 98 Nasal Cannula 2.00 09/15/17 01:55 97.9 Orders Orders Ecg Monitoring (09/15/17 01:22) Iv Access Insert/Monitor (09/15/17 01:22) Diet Npo (09/15/17 Breakfast) Activity Bed Rest (09/15/17 ) Electrocardiogram (09/15/17 ) I-Stat Profile (09/15/17 01:25) Prothrombin Time / Inr (Pt) (09/15/17:25) Act Partial Throm Time (Ptt) (09/15/17:25) Complete Blood Count With Diff (09/15/17 01:25) Fibrinogen (09/15/17:25) Creatine Kinase (Cpk) (09/15/17:25) Troponin I (09/15/17 01:25) Ua Includes Microscopic (09/15/17 01:25) Drug Screen, Random Urine (09/15/17 01:25) Type And Screen (09/15/17:25) Ct Brain W/O Iv Contrast(Rout) (09/15/17 ) Cta Brain W Iv Contrast W 3d (09/15/17 01:25) Cta Neck W Iv Contrast W 3d (09/15/17 01:25) Consult Neurology (09/15/17 ) Blood Glucose (09/15/17 01:25) Neuro Checks Q2HX12,Q4H (09/15/17 01:25) Nursing Bedside Swallow Assess .ONCE (09/15/17 01:25) NPO (09/15/17 01:25) Oximetry (09/15/17 01:25) Resp Oxygen Nc Stroke (09/15/17 ) Sodium Chlor 0.9% 1000 Ml Inj (Ns 1000 M (09/15/17 01:25) Cath For Specimen (09/15/17 01:25) Admit Order (Ed Use Only) (09/15/17 ) Food Cart Attendant / Telemetry KEVIN.[id number] (09/15/17 02:32) Vital Signs (Adult) Q4H (09/15/17 02:32) Activity Bed Rest (09/15/17 02:32) Labs Laboratory Tests Test 09/15/17 01:00 White Blood Count 6.2 TH/MM3 Red Blood Count 4.87 MIL/MM3 Hemoglobin 14.4 GM/DL Bedside Hemoglobin 15.0 G/DL Hematocrit 43.2 % Bedside Hematocrit 44.0 % Mean Corpuscular Volume 88.7 FL Mean Corpuscular Hemoglobin 29.5 PG Mean Corpuscular Hemoglobin Concent 33.3 % Red Cell Distribution Width 14.5 % Platelet Count 165 TH/MM3 Mean Platelet Volume 10.7 FL Neutrophils (%) (Auto) 42.1 % Lymphocytes (%) (Auto) 33.3 % Monocytes (%) (Auto) 11.4 % Eosinophils (%) (Auto) 11.7 % Basophils (%) (Auto) 1.5 % Neutrophils # (Auto) 2.6 TH/MM3 Lymphocytes # (Auto) 2.1 TH/MM3 Monocytes # (Auto) 0.7 TH/MM3 Eosinophils # (Auto) 0.7 TH/MM3 Basophils # (Auto) 0.1 TH/MM3 CBC Comment DIFF FINAL Differential Comment Prothrombin Time 13.4 SEC Prothromb Time International Ratio 1.3 RATIO Activated Partial Thromboplast Time 30.8 SEC Fibrinogen 100 mg/dL Bedside Sodium 143 MMOL/L Bedside Potassium 3.8 MMOL/L Bedside Chloride 106 MMOL/L Bedside Blood Urea Nitrogen 23 MG/DL Bedside Creatinine 1.7 MG/DL Bedside Glucose 104 MG/DL Total Creatine Kinase 130 U/L Troponin I LESS THAN 0.02 NG/ML MDM Medical Screen Exam Complete: Yes Emergency Medical Condition: Yes Differential Diagnosis Hemorrhagic stroke, ischemic stroke, cause paralysis Narrative Course The patient has an ischemic stroke. He has had multiple prior strokes. He has a history of intracranial hemorrhage. He is 82 years old. Both he and his are opposed to the use of thrombolytics. Admission for further evaluation. CBC & BMP Diagram 09/15/17 01:00 Last Impressions Neck CTA 09/15/17124 Signed Impressions: Service Date/Time: August 01:31 - CONCLUSION: Minimal calcification with no evidence of stenosis. Sebastian Nuñez MD Head CTA 09/15/175 Signed Impressions: Service Date/Time: August 01:31 - CONCLUSION: Unremarkable exam. Sebastian Nuñez MD Head CT 09/15/17 0000 Signed Impressions: Service Date/Time: August 01:24 - CONCLUSION: 1. Stable remote areas of infarction involving the left parietal lobe and right occipital lobe. 2. Small low-attenuation area now noted in the right cerebellar hemisphere not seen on the prior studies. This likely represents interval infarction. 3. Diffuse atrophic change and small lacunar infarct in the right basal ganglia. 4. No acute hemorrhage or mass effect. Sebastian Nuñez MD Case discussed with Dr. Nj for neurology Case discussed with Dr Canales for [facility] Critical Care Narrative Aggregate critical care time was 45 minutes. Time to perform other separately billable procedures was not included in the critical care time. My time did not include minutes spent treating any other patients simultaneously or on activities that did not directly contribute to the patient's treatment. The services I provided to this patient were to treat and/or prevent clinically significant deterioration that could result in: Permanent deficit, permanent weakness I provided critical care services requiring my management, as noted below: Chart data review, documentation time, medication orders and management, vital sign assessments/reviewing monitor data, ordering and reviewing lab tests, ordering and interpreting/reviewing x-rays and diagnostic studies, care of the patient and discussion of the patient with the admitting physicians. Stroke Alert NIHSS NIH Stroke Scale Result: 9 NIHSS Time Completed: 01:22 Thrombolytic Contraindications Contraindications: Refusal of Treatment Diagnosis Diagnosis: Primary Impression: Cerebrovascular accident (CVA) Qualified Codes: I63.9 - Cerebral infarction, unspecified Admitting Physician Requests: Admit Jalen Foster MD Sep 15, 2017 02:32
--- NOTE | 2017-09-15 04:39 | HHI.HP ---
[facility] Milton Garcia MD Admission Diagnosis Ischemic CVA Diagnoses: Travel History International Travel<30 Days: No Contact w/Intl Traveler <30 Da: No Traveled to Known Affected Are: No History of Present Illness 82-year-old male with a past medical history significant for hemorrhagic subdural hematoma, right occipital lobe CVA, left MCA CVA, hypertension, osteoarthritis, atrial fibrillation, cataracts, hyperlipidemia, seizure disorder and osteoarthritis since to the emergency department after EMS was called by his . The patient's reports that she attempted to wake up her around 12:30 AM and he began talking nonsense with garbled speech. She was immediately concerned given his history of multiple CVAs and called EMS for further evaluation. The patient was a stroke code him the emergency department however given recent history of brain bleed is not a candidate for TPA. At the time of our interview, the patient had returned to baseline. He has residual left upper and lower extremity weakness. He denies any headaches. No chest pain or shortness of breath. Denies nausea/vomiting/diarrhea. No facial droop. No lateralizing symptoms that are different than baseline. Review of Systems Except as stated in HPI: all other systems reviewed are Neg Past Family Social History Past Medical History hemorrhagic subdural hematoma, right occipital lobe CVA, left MCA CVA, hypertension, osteoarthritis, atrial fibrillation, cataracts, hyperlipidemia, osteoarthritis, seizure disorder Past Surgical History Appendectomy Bilateral cataracts Tonsillectomy Reported Medications Reported Meds & Active Scripts Active Walker with Front Wheels (Device) 1 Mis Mis 1 Ea .ROUTE DIRECTED Keppra (Levetiracetam) 500 Mg Tab 250 Mg PO Q12H Reported Lyrica (Pregabalin) 75 Mg Cap 75 Mg PO TID Aspirin 81 Mg Chew 325 Mg CHEW DAILY Metoprolol Succinate ER 24 HR (Metoprolol Succinate) 100 Mg Tab 100 Mg PO DAILY Nifedipine ER (Nifedipine) 90 Mg Tab 90 Mg PO DAILY Atorvastatin (Atorvastatin Calcium) 20 Mg Tab 20 Mg PO DAILY Allergies: Coded Allergies: ibuprofen (Unverified Allergy, Severe, Hallucinations, 03/08/17) penicillin G (Unverified Allergy, Severe, DIZZY, 03/08/17) Family History Negative for CAD/DM Social History Denies alcohol, tobacco or illicit drugs Physical Exam Vital Signs Vital Signs Date Time Temp Pulse Resp B/P (MAP) Pulse Ox O2 Delivery O2 Flow Rate FiO2 09/15/17 02:21 75 17 114/68 (83) 98 Nasal Cannula 2.00 09/15/17 02:02 85 25 118/59 (78) 98 Nasal Cannula 2.00 09/15/17 01:55 97.9 86 18 129/80 (96) 99 Nasal Cannula 2.00 09/15/17 01:30 80 20 120/70 (87) 99 Nasal Cannula 2.00 09/15/17 01:26 99 Nasal Cannula 2.00 09/15/17 01:16 97 Nasal Cannula 2.00 09/15/17 01:16 97.8 77 18 129/72 (91) Physical Exam GENERAL: Obese, male lying in bed SKIN: No rashes, ecchymoses or lesions. Cool and dry. HEAD: Atraumatic. Normocephalic. No temporal or scalp tenderness. EYES: Pupils equal round and reactive. Extraocular motions intact. No scleral icterus. No injection or drainage. ENT: Nose without bleeding, purulent drainage or septal hematoma. Throat without erythema, tonsillar hypertrophy or exudate. Uvula midline. Airway patent. NECK: Trachea midline. No JVD or lymphadenopathy. Supple, nontender, no meningeal signs. CARDIOVASCULAR: Regular rate and rhythm without murmurs, gallops, or rubs. RESPIRATORY: Clear to auscultation. Breath sounds equal bilaterally. No wheezes , rales, or rhonchi. GASTROINTESTINAL: Abdomen soft, non-tender, nondistended. No hepato-splenomegaly , or palpable masses. No guarding. MUSCULOSKELETAL: Extremities without clubbing, cyanosis, or edema. No joint tenderness, effusion, or edema noted. No calf tenderness. NEUROLOGICAL: Awake and alert. Cranial nerves II through XII intact. Mildly slurred speech that the patient's reports is baseline. 2/5 hand rail bender and left upper extremity strength. 3/5 left lower extremity strength. Remainder of strength exam within normal limits. Laboratory Laboratory Tests Test 09/15/17 01:00 White Blood Count 6.2 Red Blood Count 4.87 Hemoglobin 14.4 Bedside Hemoglobin 15.0 Hematocrit 43.2 Bedside Hematocrit 44.0 Mean Corpuscular Volume 88.7 Mean Corpuscular Hemoglobin 29.5 Mean Corpuscular Hemoglobin Concent 33.3 Red Cell Distribution Width 14.5 Platelet Count 165 Mean Platelet Volume 10.7 Neutrophils (%) (Auto) 42.1 Lymphocytes (%) (Auto) 33.3 Monocytes (%) (Auto) 11.4 Eosinophils (%) (Auto) 11.7 Basophils (%) (Auto) 1.5 Neutrophils # (Auto) 2.6 Lymphocytes # (Auto) 2.1 Monocytes # (Auto) 0.7 Eosinophils # (Auto) 0.7 Basophils # (Auto) 0.1 CBC Comment DIFF FINAL Differential Comment Prothrombin Time 13.4 Prothromb Time International Ratio 1.3 Activated Partial Thromboplast Time 30.8 Fibrinogen 100 Bedside Sodium 143 Bedside Potassium 3.8 Bedside Chloride 106 Bedside Blood Urea Nitrogen 23 Bedside Creatinine 1.7 Bedside Glucose 104 Total Creatine Kinase 130 Troponin I LESS THAN 0.02 Result Diagram: 09/15/17 0100 Caprini VTE Risk Assessment Caprini VTE Risk Assessment: Mod/High Risk (score >= 2) Caprini Risk Assessment Model Point Value = 1 Point Value = 2 Point Value = 3 Point Value = 5 Age 41-60 Minor surgery BMI > 25 kg/m2 Swollen legs Varicose veins or History of unexplained or recurrent spontaneous Oral contraceptives or hormone replacement Sepsis (< 1 month) Serious lung disease, including pneumonia (< 1 month) Abnormal pulmonary function Acute myocardial infarction Congestive heart failure (< 1 month) History of inflammatory bowel disease Medical patient at bed rest Age 61-74 Arthroscopic surgery Major open surgery (> 45 min) Laparoscopic surgery (> 45 min) Malignancy Confined to bed (> 72 hours) Immobilizing plaster cast Central venous access Age >= 75 History of VTE Family history of VTE Factor V Leiden Prothrombin [id number] Lupus anticoagulant Anticardiolipin antibodies Elevated serum homocysteine Heparin-induced thrombocytopenia Other congenital or acquired thrombophilia Stroke (< 1 month) Elective arthroplasty Hip, pelvis, or leg fracture Acute spinal cord injury (< 1 month) Prophylaxis Regimen Total Risk Factor Score Risk Level Prophylaxis Regimen 0-1 Low Early ambulation 2 Moderate Order ONE of the following: *Sequential Compression Device (SCD) *Heparin 5000 units SQ BID 3-4 Higher Order ONE of the following medications: *Heparin 5000 units SQ TID *Enoxaparin/Lovenox 40 mg SQ daily (WT < 150 kg, CrCl > 30 mL/min) *Enoxaparin/Lovenox 30 mg SQ daily (WT < 150 kg, CrCl > 10-29 mL/min) *Enoxaparin/Lovenox 30 mg SQ BID (WT < 150 kg, CrCl > 30 mL/min) AND/OR *Sequential Compression Device (SCD) 5 or more Highest Order ONE of the following medications: *Heparin 5000 units SQ TID (Preferred with Epidurals) *Enoxaparin/Lovenox 40 mg SQ daily (WT < 150 kg, CrCl > 30 mL/min) *Enoxaparin/Lovenox 30 mg SQ daily (WT < 150 kg, CrCl > 10-29 mL/min) *Enoxaparin/Lovenox 30 mg SQ BID (WT < 150 kg, CrCl > 30 mL/min) AND *Sequential Compression Device (SCD) Assessment and Plan Assessment and Plan Assessment/plan: 1. CVA/TIA Patient has now returned to baseline Head CT negative for acute process CTA of the head and neck within normal limits Neurology consulted, appreciate recommendations 2. Seizure disorder Patient reports history of seizure 1 Continue home Lyrica, Keppra 3. Hypertension Continue home nifedipine 4. Atrial fibrillation Continue aspirin, metoprolol FEN Nothing by mouth NS at 70 cc/hour Electrolytes: monitor and replete prn Holding pharmacologic anticoagulation secondary to previous brain bleed Physician Certification 2 Midnight Certification Type: Admission for Inpatient Services Order for Inpatient Services The services are ordered in accordance with Medicare regulations or non- Medicare payer requirements, as applicable. In the case of services not specified as inpatient-only, they are appropriately provided as inpatient services in accordance with the 2-midnight benchmark. Estimated LOS (days): 2 2 days is the estimated time the patient will need to remain in the hospital, assuming treatment plan goals are met and no additional complications. Post-Hospital Plan: Not yet determined Shy Canales MD Sep 15, 2017 04:39
[2017-09-15] MEDS ORDERED: levETIRAcetam 500 MG TAB PO SCH (04:45)
[2017-09-15] MEDS ORDERED: NIFEdipine 90 MG SUSTAINED RELEASE TAB PO SCH (09:00)
[2017-09-15] MEDS: ASPIRIN 81 MG CHEW TAB CHEW SCH (10:19)
[2017-09-15] MEDS: METOPROLOL SUCCINATE 50 MG EXTENDED RELEASE TAB PO SCH (10:19)
[2017-09-15] MEDS: PREGABALIN 75 MG CAP PO SCH ×3 (10:20→18:13)
[2017-09-15] MEDS: ATORVASTATIN 20 MG TAB PO SCH (10:20)
--- NOTE | 2017-09-15 10:42 | MB ---
cc: BONNY LYONS DATE OF CONSULTATION: 09/15/2017 HISTORY OF PRESENT ILLNESS A 82-year-old male with a history of hypertension, non-insulin dependent diabetes, hypercholesterolemia and known atrial fibrillation with Watchman device in, some renal insufficiency, who has been seen multiple times in the hospital. 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 He was not anticoagulated because of the hemorrhagic component of the right occipital lobe infarct. Then he had come in, in July 2016. He was evidently started on Pradaxa. He had a throbbing headache. CT showed bilateral subdural hematomas with possible acute component on the left side versus hygromas and he had a bur hole placed in July of 2016. It was felt to be subacute bilateral hygroma fluid collection with subdural hematoma on the left. In view of those films show in fact he did have fairly large subdural collections, it is unclear if there was blood here or if that is just the bone, it may have been acute left component inferiorly versus bony artifact on the left frontal region. When he came in he had small infarcts and the August 08, 2015 infarct, he then had in July 2016, the bur holes done, the subdural was evacuated. At that time he had a larger left MCA infarct sometime between mid July 2015 and July of 2016. It is unclear when he had the Watchman device placed, it has been at least a year, possibly sometime in 2015. He then came in, in January of 2017 with some confusion, a little bit of staring off. On EEG he was found to have some small sharps, he was put on Keppra and MRI did not show any new infarcts but showed an old left MCA infarct and the old right occipital infarct. There is on the GRE images most recently he has had some hemorrhagic component of the left MCA infarct, also small amount. Then last evening he was asleep around midnight and his woke him up, asked him if he took his pills and his speech was garbled and it seemed to be garbled until he got to the hospital and then it seemed to pass. A CTA of the neck and [id number]-ih-[id number] was normal. CAT scan of the brain just showed the old infarcts and he has some significant enlargement of the ventricles, of which he had some prominence of the ventricles in January of [address] done today it may be slightly more prominent, although on my review of the films, probably similar. The ventricular size compared to July 2015, I would say might be a little bit more prominent, but they were also prominent then, including the third ventricle, so no major change in the ventricular size over the last 2 years. REVIEW OF SYSTEMS According to his , no history of ME, CABG, hepatic, pulmonary disease, thyroid disease, lupus, ulcer, cancer. SOCIAL HISTORY Nonsmoker. Nondrinker. Lives with his . FAMILY HISTORY Negative for cancer, seizure, stroke. MEDICATIONS I will say on November 29, 2016, he was seen by Dr. Aguilar. He said he had been previously put on Pradaxa. Another note from August 20, 2016 shows that the patient was on Pradaxa when the large subdurals were noted on August 20, 2016. So he did have a subdural hemorrhage on Pradaxa. CURRENT MEDICATIONS 1. Lyrica 75 t.i.d. 2. 81 of aspirin. 3. Metoprolol. 4. Nifedipine. 5. Atorvastatin. 6. Keppra 500 q. 12. ALLERGIES IBUPROFEN AND PENICILLIN. PHYSICAL EXAMINATION No tele strips in the chart. EKG shows what was interpreted as atrial fibrillation. VITAL SIGNS: Afebrile, 77, 19, 117/82. NECK: There were no carotid bruits. HEART: Regular rhythm. I do not detect a murmur. NEURO: Pupils are equal, visual moreno appear to be full. Face was symmetric. Tongue was midline. He is a little bit aphasic so it is hard to get a good exam on him. He has had normal strength in upper and lower extremities bilaterally. Toes are downgoing bilaterally. Pinprick appeared to be intact throughout. DTRs are trace. He could figure out how to show me his left thumb, a little bit of problem with repetition, naming was slightly off. He is awake and alert. LABORATORY DATA CBC is normal. Sed rate was normal in July 2015. His RPR has been normal. RADHA was 1:40 in 2016. His basic metabolic profile, creatinine is 1.7, BUN 23, otherwise normal. CPK and troponins negative. LDL cholesterol was 106 in July of 2015. B12 was normal at that time as was the thyroid. Coags: INR was normal here. IMAGING STUDIES: CAT scan of the brain just showed the old infarcts here. CTA of the neck and Eijwop-yz-Nfpruo was normal. IMPRESSION Multiple infarcts in the past with some hemorrhagic conversion. Bilateral subdurals on Pradaxa with some slight hemorrhagic component there, in July of 2016, status post evacuation. Recently admitted in January with possible small seizure versus TIA. Will check an MRI here and repeat an EEG. I will review his past EEG. Depending on the results of the MRI and EEG, will have to decide whether he should be anticoagulated versus adjust his seizure meds and I will be following him with you in the hospital. MD AUGUST Waller/SHYANNE /8:50 AM /10:30 AM
[2017-09-15] MEDS: levETIRAcetam 250 MG TAB PO SCH ×2 (11:38→21:13)
--- NOTE | 2017-09-15 15:04 | RADRPT ---
EXAM DATE/TIME: 09/15/2017 14:07 [facility] COMPARISON: CT BRAIN W/O CONTRAST, September 15, 2017, 1:24. MRI BRAIN W & W/O CONTRAST, February 18, 2017, 15:58. INDICATIONS : CVA. Confusion. CONTRAST: 25 cc Multihance (gadobenate) IV MEDICAL HISTORY : Hypertension. SURGICAL HISTORY : Brain surgery and watchman filter. ENCOUNTER: Subsequent ACUITY: 2 day PAIN SCORE: 0/10 LOCATION: Head. TECHNIQUE: Multiplanar, multisequence MRI of the brain was performed both prior to and following the administrat ion of paramagnetic contrast. FINDINGS: There is evidence of acute infarction in the right mid convexity frontal parietal region with restric patsy diffusion and T2 prolongation. There is also multifocal areas of susceptibility artifact on the susceptibility weighted images suggesting blood products. 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 Diffuse atrophy with prominence of th e sulci and basal cisterns. The posterior fossa structures are grossly intact. Scattered areas of T 2 prolongation in the supratentorial white matter tract respect of ischemic demyelination. Mild left -sided mucosal thickening in the maxillary sinus. CONCLUSION: 1. Acute hemorrhagic infarction in the anterior right frontal lobe. 2. Old infarctions left posterior watershed zone, right medial occipital lobe and right central cereb ellar hemisphere. 3. Mild left maxillary sinus disease. Jayson Zhang MD on September 15, 2017 at 14:50 Board Certified Radiologist. This report was verified electronically.
[2017-09-15] MEDS ORDERED: GADOBENATE DIM PF 529 MG/ML 5 ML VIAL (for RAD MRI) IV ONE (15:12)
[2017-09-15 17:03] LABS: BILIRUBIN, URINE NEG (NEG); BLOOD, URINE NEG (NEG); GLUCOSE,URINE 150 mg/dL (NEG); KETONE, URINE NEG (NEG); NITRITE,URINE NEG (NEG); URINE COLOR LIGHT-YELLOW (YELLW/STRAW); URINE LEUKOCYTE ESTERASE NEG (NEG)
--- NOTE | 2017-09-15 19:17 | ECHRPT ---
Indication: Transient cerebral ischemic attack, unspecified CONCLUSIONS normal lv size, wall thickness, ef=55% thickened aortic valve leaflets The left atrial size is mildly dilated. Trace mitral valve regurgitation. There is trace tricuspid valve regurgitation. The inferior vena cava was not well visualized. The transthoracic study is normal by two-dimensional, color flow imaging and Doppler interrogation. BP: 117 / 82 HR: 77 Rhythm: MEASUREMENTS (Male / Female) Normal Values Technical Quality: 2D ECHO LV Diastolic Diameter PLAX 4.5 cm 4.2 - 5.9 / 3.9 - 5.3 cm LV Systolic Diameter PLAX 3.3 cm IVS Diastolic Thickness 1.5 cm 0.6 - 1.0 / 0.6 - 0.9 cm LVPW Diastolic Thickness 1.2 cm 0.6 - 1.0 / 0.6 - 0.9 cm LV Relative Wall Thickness 0.6 RV Internal Dim ED PLAX 3.0 cm M-MODE Aortic Root Diameter MM 4.4 cm LA Systolic Diameter MM 4.4 cm LA Ao Ratio MM 1.0 AV Cusp Separation MM 1.3 cm DOPPLER MV Peak Velocity 101.0 cm/s MV Peak Gradient 4.1 mmHg MV Mean Velocity 63.2 cm/s MV Mean Gradient 2.0 mmHg TR Peak Velocity 199.0 cm/s TR Peak Gradient 15.8 mmHg Right Atrial Pressure 10.0 mmHg Pulmonary Artery Systolic Pressu 25.8 mmHg Right Ventricular Systolic Press 25.8 mmHg FINDINGS LEFT VENTRICLE Normal left ventricular size and wall thickness. The left ventricular systolic function is normal wi th an estimated ejection fraction in the range of 60-65%. Left ventricular diastolic function parameters a re normal. RIGHT VENTRICLE Normal right ventricular size and systolic function. LEFT ATRIUM The left atrial size is mildly dilated. RIGHT ATRIUM The right atrial size is normal. ATRIAL SEPTUM Normal atrial septal thickness without atrial level shunting by limited color doppler interrogation. AORTA The aortic root and proximal ascending aorta are normal in size on limited imaging. MITRAL VALVE Structurally normal mitral valve. Trace mitral valve regurgitation. AORTIC VALVE Trileaflet aortic valve. No aortic valve stenosis or regurgitation. TRICUSPID VALVE Structurally normal tricuspid valve. There is trace tricuspid valve regurgitation. PULMONARY VALVE No pulmonary valve regurgitation or stenosis. VESSELS The inferior vena cava was not well visualized. PERICARDIUM No pericardial effusion. Collins Davidson MD, FACC, FSCAI (Electronically Signed) Final Date:15 September 2017 19:16
--- NOTE | 2017-09-15 20:02 | EKG ---
Date Performed: 09/15/2017 Time Performed: 01:50:18 PTAGE: 82 years EKG: ATRIAL FIBRILLATION When compared to previous tracing, the patient now appears to Be in atr ial fibrllation. ABNORMAL RHYTHM ECG PREVIOUS TRACING : 02/18/2017 12.20 DOCTOR: Katelyn Stewart Interpretating Date/Time 09/15/2017 20:00:19
[2017-09-16] VITALS: BP 133/84; PULSE 86; RESP 15; TEMP 97.6; O2SAT 96
[2017-09-16 04:00] VITALS: BP 148/89; PULSE 85; RESP 15; TEMP 97; O2SAT 95
--- NOTE | 2017-09-16 07:17 | HHI.PR ---
Subjective Remarks no new co Objective Vital Signs Date Time Temp Pulse Resp B/P (MAP) Pulse Ox O2 Delivery O2 Flow Rate FiO2 09/16/17 00:00 97.6 86 15 133/84 (100) 96 09/15/17 20:18 98.0 78 16 139/99 (112) 09/15/17 18:40 88 09/15/17 17:43 95 21 09/15/17 17:00 97.6 85 18 146/78 (100) 95 09/15/17 15:39 96.7 82 19 149/92 (111) 96 09/15/17 11:39 96.2 83 19 133/81 (98) 97 09/15/17 10:44 94 21 09/15/17 07:52 97.8 77 19 117/82 (94) 97 I/O 09/15/17 09/15/17 09/15/17 09/16/17 09/16/17 09/16/17 07:00 15:00 23:00 07:00 15:00 23:00 Intake Total 600 ml Output Total 400 ml Balance 200 ml Intake Oral 600 ml Output Urine Total 400 ml Result Diagram: 09/15/17 0100 Objective Remarks awake vff moves all well in bed folows commands well Assessment and Plan Assessment and Plan imp another cva acute with some hemorrhagic infarct conversion i would start him on coumadin in 4 weeks despite hx subdural cont keppra eeg prelim some mild changes left temp await report ok oob he will need his inr followed out pt closely he can fu with dr hernandez o/p we should fax all his records to him including this note he could dc to home or rehab dep on Brian Vanessa MD Sep 16, 2017 07:17
[2017-09-16 08:00] VITALS: PULSE 90
[2017-09-16 09:20] VITALS: BP 157/89; PULSE 53; RESP 16; TEMP 96.7; O2SAT 97
[2017-09-16] MEDS: METOPROLOL SUCCINATE 50 MG EXTENDED RELEASE TAB PO SCH (09:30)
[2017-09-16] MEDS: ATORVASTATIN 20 MG TAB PO SCH (09:30)
[2017-09-16] MEDS: ASPIRIN 81 MG CHEW TAB CHEW SCH (09:31)
[2017-09-16] MEDS: PREGABALIN 75 MG CAP PO SCH ×2 (09:31→12:17)
[2017-09-16] MEDS: levETIRAcetam 250 MG TAB PO SCH (09:31)
[2017-09-16 10:27] VITALS: O2SAT 97
--- NOTE | 2017-09-16 11:11 | HHI.FF ---
Face to Face Verification Diagnosis: (1) Cerebrovascular accident (CVA) Physical Therapy Order: Evaluate and Treat Occupational Therapy Order: Evaluate and Treat Home Health Nursing Order: Nursing assessment with vital signs Instructions: home health for medication management Vegetable Thinner Order: To Provide: Long range planning I have seen patient Roberto Hope on 09/16/17. My clinical findings support the need for the requested home health care services because: Limited ability to care for self I certify that my clinical findings support that this patient is homebound because: Unsafe to leave home unassisted Carlos Martínez MD Sep 16, 2017 11:10
[2017-09-16] MEDS ORDERED: NIFE30TA61 PO (11:57)
[2017-09-16 12:00] VITALS: BP 114/78; PULSE 93; RESP 16; TEMP 97.2; O2SAT 97
--- NOTE | 2017-09-16 21:47 | MG ---
cc: PRIETO CHIANG MD Lab No: Date: 09/15/17 Age: 82 Sex: M Race: An EEG was obtained on this 82-year-old patient being evaluated for subdural hematoma, seizures. MEDICATIONS Lyrica Keppra Aspirin, Lipitor The patient is awake and asleep. There is background of low amplitude beta rhythms diffusely and there is some mixture of theta with some alpha rhythms as well. There is awake and asleep in this recording. Intermittently, some left frontal central sharp discharges are present, but there is no ictal pattern. Photic stimulation disclosed no significant change. INTERPRETATION This EEG shows some intermittent left frontal central sharp discharge of probable epileptiform significance, but no ictal pattern present. Prieto Chiang MD [facility] /9:02 PM /9:41 PM
[2017-09-18 06:32] LABS: METHYLMALONIC ACID 0.17 nmol/mL (<=0.40)
--- NOTE | 2017-09-20 10:50 | HHI.DS ---
Discharge Summary Admission Date Sep 15, 2017 at 02:35 Discharge Date: Sep 16, 2017 Admitting Diagnosis Ischemic CVA (1) Cerebrovascular accident (CVA) ICD Code: I63.9 - Cerebral infarction, unspecified Status: Acute Procedures no invasive procedures. Brief History - From Admission 82-year-old male with a past medical history significant for hemorrhagic subdural hematoma, right occipital lobe CVA, left MCA CVA, hypertension, osteoarthritis, atrial fibrillation, cataracts, hyperlipidemia, seizure disorder and osteoarthritis since to the emergency department after EMS was called by his . The patient's reports that she attempted to wake up her around 12:30 AM and he began talking nonsense with garbled speech. She was immediately concerned given his history of multiple CVAs and called EMS for further evaluation. The patient was a stroke code him the emergency department however given recent history of brain bleed is not a candidate for TPA. At the time of our interview, the patient had returned to baseline. He has residual left upper and lower extremity weakness. He denies any headaches. No chest pain or shortness of breath. Denies nausea/vomiting/diarrhea. No facial droop. No lateralizing symptoms that are different than baseline. Imaging Last Impressions Brain MRI 09/15/1704 Signed Impressions: Service Date/Time: August 14:07 - CONCLUSION: 1. Acute hemorrhagic infarction in the anterior right frontal lobe. 2. Old infarctions left posterior watershed zone, right medial occipital lobe and right central cerebellar hemisphere. 3. Mild left maxillary sinus disease. Jayson Zhang MD Neck CTA 09/15/17124 Signed Impressions: Service Date/Time: August 01:31 - CONCLUSION: Minimal calcification with no evidence of stenosis. Sebastian Nuñez MD Head CTA 09/15/175 Signed Impressions: Service Date/Time: August 01:31 - CONCLUSION: Unremarkable exam. Sebastian Nuñez MD Head CT 09/15/17 0000 Signed Impressions: Service Date/Time: August 01:24 - CONCLUSION: 1. Stable remote areas of infarction involving the left parietal lobe and right occipital lobe. 2. Small low-attenuation area now noted in the right cerebellar hemisphere not seen on the prior studies. This likely represents interval infarction. 3. Diffuse atrophic change and small lacunar infarct in the right basal ganglia. 4. No acute hemorrhage or mass effect. Sebastian Nuñez MD PE at Discharge GENERAL: patient sitting up on edge of bed. Appears comfortable. SKIN: Warm and dry. HEAD: Normocephalic. EYES: No scleral icterus. No injection or drainage. NECK: Supple, trachea midline. No JVD. CARDIOVASCULAR: Regular rate and rhythm without murmurs, gallops, or rubs. RESPIRATORY: Breath sounds equal bilaterally. No accessory muscle use. GASTROINTESTINAL: Abdomen soft, non-tender, nondistended. MUSCULOSKELETAL: No cyanosis, or edema. BACK: Nontender without obvious deformity. No CVA tenderness. Pt update on day of discharge Patient seen on 09/16 prior to discharge. Patient feeling well. Denies any chest pain or shortness of breath. says he is getting better. Hospital Course CT brain on admission with no obvious acute findings, however MRI with acute hemorrhagic infarction in the anterior right frontal lobe. Neck CTA, head CTA unremarkable. EEG did show some epileptiform discharges, however no ictal pattern present. Patient was cleared for diet by speech therapy. Neurology cleared patient for discharge to rehabilitation. Patient's blood pressure was found to be lower than expected at times with blood pressures of 114 systolic. Suspect poor compliance at home. Home nifedipine dosage was decreased. For problem-based summary from most recent progress note, please see below. Assessment/plan: //CVA/TIA Patient has now returned to baseline Head CT negative for acute process CTA of the head and neck within normal limits Neurology consulted, appreciate recommendations = Cleared by speech therapy. MRI with acute hemorrhagic infarction anterior right frontal lobe. CTA head and neck unremarkable. = Patient will need to be started on Coumadin in 4 weeks as per neurology.. //Seizure disorder Patient reports history of seizure 1 Continue home Lyrica, Keppra =EEG with some intermittent left frontal central sharp discharge of probable epileptiform significance. No ictal pattern present however. Patient cleared for discharge by neurology. // Hypertension Continue home nifedipine. No stenosis //Atrial fibrillation Continue aspirin, metoprolol Pt Condition on Discharge: Good Discharge Disposition: Rehab Inpatient Discharge Time: > 30 minutes Discharge Instructions DIET: Follow Instructions for: Heart Healthy Diet Activities you can perform: Weight Bearing as [place] Follow up Referrals: Neurology - 1 Week with Brian Doran MD New Medications: Nifedipine ER 24 HR (Nifedipine ER 24 HR) 30 Mg Tab 30 MG PO DAILY for Blood Pressure Management, #30 TAB 0 Refills Continued Medications: Aspirin (Aspirin) 81 Mg Chew 325 MG CHEW DAILY, TAB 0 Refills Atorvastatin (Atorvastatin) 20 Mg Tab 20 MG PO DAILY for Cholesterol Management, #30 TAB 0 Refills Levetiracetam (Keppra) 500 Mg Tab 250 MG PO Q12H for Seizure Control, #30 TAB 1 Refill Metoprolol Succinate ER 24 HR (Metoprolol Succinate ER 24 HR) 100 Mg Tab 100 MG PO DAILY, #30 TAB 0 Refills Pregabalin (Lyrica) 75 Mg Cap 75 MG PO TID, #90 CAP 0 Refills Discontinued Medications: Nifedipine (Nifedipine ER) 90 Mg Tab 90 MG PO DAILY Carlos Martínez MD Sep 20, 2017 10:50
== END 2017-09-16 15:57 | DRG 64 ==
LOC: NEPC 01:16 → NEDA 02:35 → N06A 04:33
PROVIDERS: ADMIT Internal Medicine; ATTEND Internal Medicine
DX: I63.9 Cerebral infarction, unspecified (principal); I61.9 Nontraumatic intracerebral hemorrhage, unspecified; I48.91 Unspecified atrial fibrillation; G40.909 Epilepsy, unspecified, not intractable, without status epilepticus; E11.9 Type 2 diabetes mellitus without complications; I10 Essential (primary) hypertension; Z86.73 Personal history of transient ischemic attack (TIA), and cerebral infarction without residual deficits; H91.90 Unspecified hearing loss, unspecified ear; Z79.01 Long term (current) use of anticoagulants; E78.00 Pure hypercholesterolemia, unspecified
CPT/HCPCS: 70450; 70496; 70498; 70553; 80048; 80307; 81001; 82550; 82607; 83921; 84425; 84484; 85025; 85384; 85610; 85730; 86850; 86900; 86901; 93005; 93306; 95819; A9577; Q9967

== ENCOUNTER 2017-10-06 23:57 | Inpatient (IN) | payer MEDICARE, OTHER ==
[~2017-10-06] VITALS: Ht 188 cm; Wt 89.0 kg
[~2017-10-06 23:57] MED LIST changes: -ASPI-516 CHEW; +ASPI325T33 PO; +CIPR-9 PO; +COMMODE 3-IN-11 MIS; +LYRI50CA PO; -LYRI75CA PO; +NIFE60TA8 PO; -NIFE90TA2 PO; +TAMS5CAP PO
[2017-10-07] VITALS (16 sets, daily range): BP systolic 103–155; BP diastolic 67–96; PULSE 55–151; RESP 16–26; TEMP 97.9–98.9; O2SAT 92–98
[2017-10-07] MEDS ORDERED: DILTIAZEM HCL 50 MG/10 ML VIAL ONE (00:12)
[2017-10-07] MEDS ORDERED: SODIUM CHLORIDE 0.9% FLUSH 10 ML FLUSH IVF PRN (00:15)
[2017-10-07] MEDS ORDERED: DILTIAZEM HCL 25 MG/5 ML VIAL IV ONE ×2 (00:15→02:00)
[2017-10-07 00:28] LABS: AUTOMATED NEUTROPHIL # 12.1 TH/MM3 (1.8-7.7); BASOPHIL # 0.1 TH/MM3 (0-0.2); BASOPHIL % 0.5 % (0.0-2.0); EOSINOPHIL % 0.1 % (0.0-4.0); HEMATOCRIT 44.6 % (39.0-51.0); LYMPH % 5.9 % (9.0-44.0); LYMPHOCYTE # 0.9 TH/MM3 (1.0-4.8); MEAN CELL VOLUME 88.6 FL (80.0-100.0); MEAN CORPUSCULAR HEMOGLOBIN 29.8 PG (27.0-34.0); MEAN CORPUSCULAR HGB CONC 33.6 % (32.0-36.0); MEAN PLATELET VOLUME 9.9 FL (7.0-11.0); MONO % 10.4 % (0.0-8.0); MONOCYTE # 1.5 TH/MM3 (0-0.9); NEUT % 83.1 % (16.0-70.0); PLATELET COUNT 195 TH/MM3 (150-450); RED BLOOD COUNT 5.03 MIL/MM3 (4.50-5.90); RED CELL DISTRIBUTION WIDTH 13.8 % (11.6-17.2); WHITE BLOOD COUNT 14.6 TH/MM3 (4.0-11.0)
[2017-10-07 00:38] LABS: INTERNATIONAL NORMALIZED RATIO 1.1 RATIO; PROTHROMBIN TIME - PATIENT 11.4 SEC (9.8-11.6)
[2017-10-07 00:46] LABS: BICARBONATE 21.6 MEQ/L (21.0-32.0); BLOOD UREA NITROGEN 21 MG/DL (7-18); CALCIUM 8.5 MG/DL (8.5-10.1); CHLORIDE 106 MEQ/L (98-107); CREATININE 2.07 MG/DL (0.60-1.30); GLOMERULAR FILTRATION RATE 31 ML/MIN (>89); GLUCOSE,RANDOM 188 MG/DL (74-106); MAGNESIUM 2.1 MG/DL (1.5-2.5); SODIUM (NA) 139 MEQ/L (136-145)
[2017-10-07 00:50] LABS: TROPONIN I LESS THAN 0.02 NG/ML (0.02-0.05)
--- NOTE | 2017-10-07 01:06 | RADRPT ---
EXAM DATE/TIME: 10/07/2017 00:12 [facility] COMPARISON: CHEST SINGLE AP, July 31, 2015, 15:07. INDICATIONS : Weakness and shortness of breath. MEDICAL HISTORY : Cerebrovascular disease. SURGICAL HISTORY : None. ENCOUNTER: Initial ACUITY: 2 days PAIN SCORE: 0/10 LOCATION: Bilateral chest FINDINGS: A single view of the chest demonstrates stable elevation of the right hemidiaphragm. Questionable [place] in the medial right apex is unchanged from prior and is probably associated with the first costo chondral junction on the right. Lungs are otherwise clear with no acute infiltrate or effusion. Heart size is normal. Degenerative spurring of the dorsal spine. Osseous structures are otherwise intact. CONCLUSION: 1. Stable appearance of the chest with elevation of the right hemidiaphragm. Opacity in the medial as pect of the right upper lung is probably associated with the first costochondral junction. This too i s stable from prior. 2. No acute infiltrate. Arthur Johnson MD on October 07, 2017 at 1:02 Board Certified Radiologist. This report was verified electronically.
--- NOTE | 2017-10-07 02:14 | PD ---
HPI Chief Complaint: General Weakness Time Seen by Provider: 00:01 Travel History International Travel<30 days: No Contact w/Intl Traveler<30days: No Traveled to known affect area: No History of Present Illness HPI 82-year-old male arrives by EMS. He was discharged from rehabilitation facility a couple days prior and has since been unable to get around on his own at home. He denies chest pain shortness of breath nausea vomiting diarrhea and fever. Presentation leading to the rehabilitation facility admission was due to ischemic stroke. Patient has home healthcare planned however has not visited. He arrives with A. fib and RVR however denies palpitations lightheadedness or chest pain. PFSH Past Medical History Medical History: Unable to Obtain Hx Anticoagulant Therapy: Yes (ASA) Arthritis: Yes (NECK AND SPINE) Asthma: No Autoimmune Disease: No Anxiety: No Depression: No Heart Rhythm Problems: Yes (ATRIAL FIBRILLATION WITH RVR) Cancer: No Cardiovascular Problems: Yes High Cholesterol: Yes (HYPERLIPIDEMIA) Chemotherapy: No Chest Pain: No Congestive Heart Failure: No COPD: No Cerebrovascular Accident: Yes Diabetes: No Diminished Hearing: Yes Endocrine: No Gastrointestinal Disorders: No GERD: No Glaucoma: No Genitourinary: No Headaches: No Hepatitis: No Hiatal Hernia: No Heparin Induced Thrombocytopen: No Hypertension: Yes Immune Disorder: No Implanted Vascular Access Dvce: No Kidney Stones: No Medical other: Yes (BACK ARTHRITIS) Musculoskeletal: Yes 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) Psychiatric: No Reproductive: No Respiratory: No Immunizations Current: Yes Migraines: No Radiation Therapy: No Renal Failure: No Seizures: No Sickle Cell Disease: No Sleep Apnea: No Thyroid Disease: No Ulcer: No Past Surgical History Surgical History: Unable to Obtain Abdominal Surgery: Yes (APPENDECTOMY IN 3RD GRADE) AICD: No Arteriovenous Shunt: No Cardiac Surgery: No Ear Surgery: No Endocrine Surgery: No Eye Surgery: Yes (BILATERAL CATARACT EXTRACT) Genitourinary Surgery: No Gynecologic Surgery: No Insulin Pump: No Joint Replacement: No Neurologic Surgery: No Oral Surgery: Yes (TONSILLECTOMY REMOVAL IN 3RD GRADE) Pacemaker: No Thoracic Surgery: No Other Surgery: Yes (WATCHMAN, FILTER IN HIS HEART) Social History Alcohol Use: No Tobacco Use: No Substance Use: No Allergies-Medications (Allergen,Severity, Reaction): Coded Allergies: ibuprofen (Unverified Allergy, Severe, Hallucinations, 10/06/17) penicillin G (Unverified Allergy, Severe, DIZZY, 10/06/17) Reported Meds & Prescriptions Reported Meds & Active Scripts Active Lyrica (Pregabalin) 50 Mg Cap 50 Mg PO TID Keppra (Levetiracetam) 500 Mg Tab 250 Mg PO BID Aspirin EC (Aspirin) 325 Mg Tabdr 325 Mg PO DAILY Nifedipine ER 24 HR (Nifedipine) 60 Mg Tab 60 Mg PO DAILY Flomax (Tamsulosin HCl) 0.4 Mg Cap 0.8 Mg PO HS Cipro (Ciprofloxacin HCl) 500 Mg Tab 500 Mg PO Q12HR Metoprolol Succinate ER 24 HR (Metoprolol Succinate) 100 Mg Tab 100 Mg PO DAILY Atorvastatin (Atorvastatin Calcium) 20 Mg Tab 20 Mg PO DAILY Commode 3-in-1 (Device) 1 Mis Mis Ea .XX DIRECTED Walker with Front Wheels (Device) 1 Mis Mis 1 Ea .ROUTE DIRECTED Review of Systems Except as stated in HPI: all other systems reviewed are Neg General / Constitutional: No: Fever Physical Exam Narrative GENERAL: 82-year-old male pleasant well-nourished well-developed no acute distress Vital Signs Date Time Temp Pulse Resp B/P (MAP) Pulse Ox O2 Delivery O2 Flow Rate FiO2 10/07/17 00:04 98.7 151 20 124/80 (95) 92 SKIN: Warm and dry. HEAD: Atraumatic. Normocephalic. EYES: Pupils equal and round. No scleral icterus. No injection or drainage. ENT: No nasal bleeding or discharge. Mucous membranes pink and moist. NECK: Trachea midline. No JVD. CARDIOVASCULAR: Heart rate is irregular. The rate is about 130-140 consistent with A. fib RVR. RESPIRATORY: No accessory muscle use. Clear to auscultation. Breath sounds equal bilaterally. GASTROINTESTINAL: Abdomen soft, non-tender, nondistended. Hepatic and splenic margins not palpable. MUSCULOSKELETAL: Extremities without clubbing, cyanosis, or edema. No obvious deformities. NEUROLOGICAL: Patient is awake and alert. He answers questions appropriately. Severity mild to moderate. PSYCHIATRIC: Appropriate mood and affect; insight and judgment normal. Data Data Last Documented VS Vital Signs Date Time Temp Pulse Resp B/P (MAP) Pulse Ox O2 Delivery O2 Flow Rate FiO2 10/07/17 00:04 98.7 151 20 124/80 (95) 92 Vital signs reviewed Orders Orders Electrocardiogram (10/07/17 00:01) Basic Metabolic Panel (Bmp) (10/07/17 00:01) Ckmb (Isoenzyme) Profile (10/07/17 00:01) Complete Blood Count With Diff (10/07/17 00:01) Magnesium (Mg) (10/07/17 00:01) Prothrombin Time / Inr (Pt) (10/07/17 00:01) Act Partial Throm Time (Ptt) (10/07/17 00:01) Troponin I (10/07/17 00:01) Ecg Monitoring (10/07/17 00:01) Iv Access Insert/Monitor (10/07/17 00:01) Oximetry (10/07/17 00:01) Oxygen Administration (10/07/17 00:01) Sodium Chloride 0.9% Flush (Ns Flush) (10/07/17 00:15) Chest, Single Ap (10/07/17 ) Diltiazem Inj (Cardizem Inj) (10/07/17 00:15) Diltiazem Inj (Cardizem Inj) (10/07/17 00:12) CKMB (10/07/17 00:15) CKMB% (10/07/17 00:15) Diltiazem Inj (Cardizem Inj) (10/07/17 02:00) Diltiazem Inj (Cardizem Inj) (10/07/17 02:00) Admit Order (Ed Use Only) (10/07/17 ) Annual Campaign Manager / Telemetry [email or web address] (10/07/17 02:14) Vital Signs (Adult) Q4H (10/07/17 02:14) Diet Heart Healthy (10/07/17 Breakfast) Activity Bed Rest (10/07/17 02:14) Labs Laboratory Tests Test 10/07/17 00:15 White Blood Count 14.6 TH/MM3 Red Blood Count 5.03 MIL/MM3 Hemoglobin 15.0 GM/DL Hematocrit 44.6 % Mean Corpuscular Volume 88.6 FL Mean Corpuscular Hemoglobin 29.8 PG Mean Corpuscular Hemoglobin Concent 33.6 % Red Cell Distribution Width 13.8 % Platelet Count 195 TH/MM3 Mean Platelet Volume 9.9 FL Neutrophils (%) (Auto) 83.1 % Lymphocytes (%) (Auto) 5.9 % Monocytes (%) (Auto) 10.4 % Eosinophils (%) (Auto) 0.1 % Basophils (%) (Auto) 0.5 % Neutrophils # (Auto) 12.1 TH/MM3 Lymphocytes # (Auto) 0.9 TH/MM3 Monocytes # (Auto) 1.5 TH/MM3 Eosinophils # (Auto) 0.0 TH/MM3 Basophils # (Auto) 0.1 TH/MM3 CBC Comment DIFF FINAL Differential Comment Prothrombin Time 11.4 SEC Prothromb Time International Ratio 1.1 RATIO Activated Partial Thromboplast Time 21.9 SEC Blood Urea Nitrogen 21 MG/DL Creatinine 2.07 MG/DL Random Glucose 188 MG/DL Calcium Level 8.5 MG/DL Magnesium Level 2.1 MG/DL Sodium Level 139 MEQ/L Potassium Level 4.3 MEQ/L Chloride Level 106 MEQ/L Carbon Dioxide Level 21.6 MEQ/L Anion Gap 11 MEQ/L Estimat Glomerular Filtration Rate 31 ML/MIN Total Creatine Kinase 299 U/L Creatine Kinase MB 1.6 NG/ML Troponin I LESS THAN 0.02 NG/ML MDM Medical Decision Making Medical Screen Exam Complete: Yes Emergency Medical Condition: Yes Medical Record Reviewed: Yes Differential Diagnosis NSTEMI, unstable angina, coronary vasospasm, PE, PTX, aortic dissection, pericarditis, myocarditis, endocarditis, PNA, esophageal disease, aneurysm, musculoskeletal etiologies, anxiety, cocaine/sympathomimetic abuse Narrative Course Patient has A. fib with RVR. He has received diltiazem. The rate has decreased to about 110. He will be admitted for ongoing rate control and rehabilitation. Case discussed with Dr. Canales for the hospitalist service. CBC & BMP Diagram 10/07/17 00:15 Calcium Level 8.5, Magnesium Level 2.1 Last Impressions Chest X-Ray 10/07/17 0000 Signed Impressions: Service Date/Time: Saturday, October 07, 2017 00:12 - CONCLUSION: 1. Stable appearance of the chest with elevation of the right hemidiaphragm. Opacity in the medial aspect of the right upper lung is probably associated with the first costochondral junction. This too is stable from prior. 2. No acute infiltrate. Arthur Johnson MD Critical Care Narrative Aggregate critical care time was 32 minutes. Time to perform other separately billable procedures was not included in the critical care time. My time did not include minutes spent treating any other patients simultaneously or on activities that did not directly contribute to the patient's treatment. The services I provided to this patient were to treat and/or prevent clinically significant deterioration that could result in: Cardiopulmonary arrest, arrhythmia I provided critical care services requiring my management, as noted below: Chart data review, documentation time, medication orders and management, vital sign assessments/reviewing monitor data, ordering and reviewing lab tests, ordering and interpreting/reviewing x-rays and diagnostic studies, care of the patient and discussion of the patient with the admitting physicians. Diagnosis Primary Impression: Atrial fibrillation with RVR Additional Impression: Physical deconditioning Admitting Information Admitting Physician Requests: Jalen Leal MD Oct 07, 2017 02:14
[2017-10-07] MEDS ORDERED: NALOXONE HCL 0.4 MG/ML AMP IV PUSH PRN (04:45)
[2017-10-07] MEDS ORDERED: ONDANSETRON HCL 4 MG/2 ML VIAL IVP PRN (04:45)
[2017-10-07] MEDS ORDERED: ACETAMINOPHEN 325 MG TAB PO PRN (04:45)
[2017-10-07] MEDS: DILTIAZEM INJ 125 MG in SODIUM CHLORIDE 0.9% INJ 100 ML IV PRN ×3 (04:46→12:58)
[2017-10-07] MEDS: SODIUM CHLOR 0.9% 1000 ML INJ 1,000 ML IV SCH ×2 (04:54→17:08)
--- NOTE | 2017-10-07 08:29 | HHI.HP ---
HPI Service [facility] Primary Care Physician Milton Garcia MD Admission Diagnosis AFIB RVR; DECONDITIONING Diagnoses: Chief Complaint: Deconditioning. Travel History International Travel<30 Days: No Contact w/Intl Traveler <30 Da: No Traveled to Known Affected Are: No History of Present Illness This is a pleasant 82 y/o male who was brought in to ER after he was discharged from Rehabilitation facility a couple of days prior to arrival, he is been unable to get around on his own home, He denies chest pain shortness of breath nausea vomiting diarrhea and fever. Presentation leading to the rehabilitation facility admission was due to ischemic stroke. Patient has home healthcare planned however has not visited. He arrives with A. fib and RVR however denies palpitations lightheadedness or chest pain. He was just recently discharged after he was admitted with Encephalopathy, he has history of multiple CVAs. as per patient he was able to walk at his Rehab facility but was helped to do that when he arrived to his home he sat down at his recliner and was not able to stand up. may need stand up assist. following recommendations by PT and OT, follow recommendations by pr specialist he states his Cardiology is doctor Yuniat asked for his evaluation due to that continue with RVR. 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 Past Surgical History Appendectomy Bilateral Cataract extract Tonsillectomy Watchman Filter Reported Medications Reported Meds & Active Scripts Active Lyrica (Pregabalin) 50 Mg Cap 50 Mg PO TID Keppra (Levetiracetam) 500 Mg Tab 250 Mg PO BID Aspirin EC (Aspirin) 325 Mg Tabdr 325 Mg PO DAILY Nifedipine ER 24 HR (Nifedipine) 60 Mg Tab 60 Mg PO DAILY Flomax (Tamsulosin HCl) 0.4 Mg Cap 0.8 Mg PO HS Cipro (Ciprofloxacin HCl) 500 Mg Tab 500 Mg PO Q12HR Metoprolol Succinate ER 24 HR (Metoprolol Succinate) 100 Mg Tab 100 Mg PO DAILY Atorvastatin (Atorvastatin Calcium) 20 Mg Tab 20 Mg PO DAILY Commode 3-in-1 (Device) 1 Mis Mis Ea .XX DIRECTED Walker with Front Wheels (Device) 1 Mis Mis 1 Ea .ROUTE DIRECTED Allergies: Coded Allergies: ibuprofen (Unverified Allergy, Severe, Hallucinations, 10/06/17) penicillin G (Unverified Allergy, Severe, DIZZY, 10/06/17) Active Ordered Medications Current Medications Medications (Trade) Dose Ordered Sig/Alejandro Route Start Time Stop Time Status Last Admin (NS Flush) 2 ml UNSCH PRN IVF 10/07/17 00:15 Diltiazem HCl 125 mg/Sodium Chloride 125 ml @ 5 mls/hr TITRATE PRN IV 10/07/17 02:00 10/07/17 04:46 (Tylenol) 650 mg Q4H PRN PO 10/07/17 04:45 (Zofran Inj) 4 mg Q6H PRN IVP 10/07/17 04:45 (Narcan Inj) 0.4 mg UNSCH PRN IV PUSH 10/07/17 04:45 Sodium Chloride 1,000 ml @ 84 mls/hr [id number] IV 10/07/17 04:45 10/07/17 04:54 (Ecotrin Ec) 325 mg DAILY PO 10/07/17 09:00 10/07/17 09:00 (Lipitor) 20 mg DAILY PO 10/07/17 09:00 10/07/17 09:00 (Keppra) 250 mg BID PO 10/07/17 09:00 10/07/17 11:24 (Lyrica) 50 mg TID PO 10/07/17 09:00 10/07/17 11:24 (Flomax) 0.8 mg HS PO 10/07/17 21:00 (Lopressor) 25 mg Q12HR PO 10/07/17 09:00 10/07/17 11:24 Family History asked and denied. Social History Denies any toxic habits. Physical Exam Vital Signs Vital Signs Date Time Temp Pulse Resp B/P (MAP) Pulse Ox O2 Delivery O2 Flow Rate FiO2 10/07/17 06:34 111 20 123/75 (91) 97 Room Air 10/07/17 05:57 120 20 132/87 (102) 96 Room Air 10/07/17 05:35 122 20 133/75 (94) 96 Room Air 10/07/17 04:46 122 125/76 10/07/17 03:28 124 26 128/83 (98) 95 Room Air 10/07/17 00:04 98.7 151 20 124/80 (95) 92 Physical Exam GENERAL: Well developed in no acute distress. SKIN: Warm and dry. HEAD: Atraumatic. Normocephalic. EYES: Pupils equal and round. No scleral icterus. No injection or drainage. ENT: No nasal bleeding or discharge. Mucous membranes pink and moist. NECK: Trachea midline. No JVD. CARDIOVASCULAR: Heart rate is irregular. RESPIRATORY: No accessory muscle use. Clear to auscultation. Breath sounds equal bilaterally. GASTROINTESTINAL: Abdomen soft, non-tender, nondistended. Hepatic and splenic margins not palpable. MUSCULOSKELETAL: Extremities without clubbing, cyanosis, Edema 2+ NEUROLOGICAL: Patient is awake and alert. He answers questions appropriately. Severity mild to moderate. PSYCHIATRIC: Appropriate mood and affect; insight and judgment normal. Laboratory Laboratory Tests Test 10/07/17 00:15 White Blood Count 14.6 Red Blood Count 5.03 Hemoglobin 15.0 Hematocrit 44.6 Mean Corpuscular Volume 88.6 Mean Corpuscular Hemoglobin 29.8 Mean Corpuscular Hemoglobin Concent 33.6 Red Cell Distribution Width 13.8 Platelet Count 195 Mean Platelet Volume 9.9 Neutrophils (%) (Auto) 83.1 Lymphocytes (%) (Auto) 5.9 Monocytes (%) (Auto) 10.4 Eosinophils (%) (Auto) 0.1 Basophils (%) (Auto) 0.5 Neutrophils # (Auto) 12.1 Lymphocytes # (Auto) 0.9 Monocytes # (Auto) 1.5 Eosinophils # (Auto) 0.0 Basophils # (Auto) 0.1 CBC Comment DIFF FINAL Differential Comment Prothrombin Time 11.4 Prothromb Time International Ratio 1.1 Activated Partial Thromboplast Time 21.9 Blood Urea Nitrogen 21 Creatinine 2.07 Random Glucose 188 Calcium Level 8.5 Magnesium Level 2.1 Sodium Level 139 Potassium Level 4.3 Chloride Level 106 Carbon Dioxide Level 21.6 Anion Gap 11 Estimat Glomerular Filtration Rate 31 Total Creatine Kinase 299 Creatine Kinase MB 1.6 Troponin I LESS THAN 0.02 Result Diagram: 10/07/17 0015 10/07/17 0015 Imaging Last Impressions Chest X-Ray 10/07/17 0000 Signed Impressions: Service Date/Time: Saturday, October 07, 2017 00:12 - CONCLUSION: 1. Stable appearance of the chest with elevation of the right hemidiaphragm. Opacity in the medial aspect of the right upper lung is probably associated with the first costochondral junction. This too is stable from prior. 2. No acute infiltrate. MD Pastora Mike VTE Risk Assessment Caprini VTE Risk Assessment: Mod/High Risk (score >= 2) Caprini Risk Assessment Model Point Value = 1 Point Value = 2 Point Value = 3 Point Value = 5 Age 41-60 Minor surgery BMI > 25 kg/m2 Swollen legs Varicose veins or History of unexplained or recurrent spontaneous Oral contraceptives or hormone replacement Sepsis (< 1 month) Serious lung disease, including pneumonia (< 1 month) Abnormal pulmonary function Acute myocardial infarction Congestive heart failure (< 1 month) History of inflammatory bowel disease Medical patient at bed rest Age 61-74 Arthroscopic surgery Major open surgery (> 45 min) Laparoscopic surgery (> 45 min) Malignancy Confined to bed (> 72 hours) Immobilizing plaster cast Central venous access Age >= 75 History of VTE Family history of VTE Factor V Leiden Prothrombin [id number] Lupus anticoagulant Anticardiolipin antibodies Elevated serum homocysteine Heparin-induced thrombocytopenia Other congenital or acquired thrombophilia Stroke (< 1 month) Elective arthroplasty Hip, pelvis, or leg fracture Acute spinal cord injury (< 1 month) Prophylaxis Regimen Total Risk Factor Score Risk Level Prophylaxis Regimen 0-1 Low Early ambulation 2 Moderate Order ONE of the following: *Sequential Compression Device (SCD) *Heparin 5000 units SQ BID 3-4 Higher Order ONE of the following medications: *Heparin 5000 units SQ TID *Enoxaparin/Lovenox 40 mg SQ daily (WT < 150 kg, CrCl > 30 mL/min) *Enoxaparin/Lovenox 30 mg SQ daily (WT < 150 kg, CrCl > 10-29 mL/min) *Enoxaparin/Lovenox 30 mg SQ BID (WT < 150 kg, CrCl > 30 mL/min) AND/OR *Sequential Compression Device (SCD) 5 or more Highest Order ONE of the following medications: *Heparin 5000 units SQ TID (Preferred with Epidurals) *Enoxaparin/Lovenox 40 mg SQ daily (WT < 150 kg, CrCl > 30 mL/min) *Enoxaparin/Lovenox 30 mg SQ daily (WT < 150 kg, CrCl > 10-29 mL/min) *Enoxaparin/Lovenox 30 mg SQ BID (WT < 150 kg, CrCl > 30 mL/min) AND *Sequential Compression Device (SCD) Assessment and Plan Assessment and Plan 1. Atrial Fibrillation with RVR continue Cardizem drip added Metoprolol and asked for pr specialist doctor Quadrat 2. Physical Deconditioning just discharged from Rehab where he was two weeks but continue with deconditioning will need stand up assist. 3. OA on Neck and Spine by history 4. DM II hemoglobin A1C 6.6 continue sliding scale 5. Hyperlipidemia continue Home medicines. 6. Left hemisphere CVA with left mild Hemorrhagic conversion on PT and OT 7. Hypertension continue home medicines. DVT prophylaxis SCDs contraindicated chemoprophylaxis due to hemorrhagic stroke history . Code Status Full Code. Discussed Condition With Patient Physician Certification 2 Midnight Certification Type: Admission for Inpatient Services Order for Inpatient Services The services are ordered in accordance with Medicare regulations or non- Medicare payer requirements, as applicable. In the case of services not specified as inpatient-only, they are appropriately provided as inpatient services in accordance with the 2-midnight benchmark. Estimated LOS (days): 3 days is the estimated time the patient will need to remain in the hospital, assuming treatment plan goals are met and no additional complications. Post-Hospital Plan: Not yet determined Kiran Gallegos MD Oct 07, 2017 08:29
[2017-10-07] MEDS ORDERED: ASPIRIN EC 325 MG TABEC PO SCH (09:00)
[2017-10-07] MEDS ORDERED: ATORVASTATIN 20 MG TAB PO SCH (09:00)
[2017-10-07] MEDS: METOPROLOL TARTRATE 25 MG TAB PO SCH ×2 (11:24→19:46)
[2017-10-07] MEDS: PREGABALIN 25 MG CAP PO SCH ×3 (11:24→19:18)
[2017-10-07] MEDS: levETIRAcetam 500 MG TAB PO SCH ×2 (11:24→19:45)
[2017-10-07] MEDS: INSULIN ASPART SUPPLEMENTAL SCALE SQ SCH ×2 (17:15→19:51)
--- NOTE | 2017-10-07 18:50 | MB ---
cc: Mili Gonzalez MD DATE OF CONSULT: 10/07/2017 HISTORY OF PRESENT ILLNESS: Mr. Hope is an 82-year-old white male with a history of paroxysmal atrial fibrillation, CVA, hypertension, aortic stenosis and previous history of cerebral hemorrhage. He was recently discharged from [facility]. Last night, he developed generalized weakness, could not get up from the chair and was noted to have a heart rate in the 140s. He was found to be in atrial fibrillation with rapid ventricular response. He denies any chest pain or shortness of breath. He has mild lower extremity edema. He has a history of a Watchman left atrial appendage closure in October 2016. He had been taken off Pradaxa due to subdural hemorrhage in the past. PAST MEDICAL HISTORY: Positive for nonsustained wide complex tachycardia, paroxysmal atrial fibrillation, right occipital lobe cerebrovascular accident, history of subdural hemorrhage, hypertension, mild renal insufficiency, mild aortic stenosis, dyslipidemia, lower extremity edema, history of cataract surgery. MEDICATIONS: Include baby aspirin, atorvastatin, metoprolol, nifedipine, Lyrica, multivitamin and Divalproex. ALLERGIES: MOTRIN AND PENICILLIN. SOCIAL HISTORY: The patient does not smoke. He does not drink alcohol. He is accompanied by his . FAMILY HISTORY: Negative for heart disease. REVIEW OF SYSTEMS: Otherwise negative. PHYSICAL EXAMINATION: VITAL SIGNS: Blood pressure 143/78, pulse 89 and irregular. HEENT: Negative, NECK: 2+ carotid upstrokes, no bruit. LUNGS: Clear. HEART: Irregularly irregular with a I-II/ systolic ejection murmur. No gallop. ABDOMEN: Soft. Obese. No bruits. EXTREMITIES: With 1-2+ pitting edema, 1+ distal pulses. NEUROLOGIC: Grossly nonfocal, although the patient has a generalized weakness. DIAGNOSTIC STUDIES: EKG was reviewed and showed atrial fibrillation with rapid ventricular response, PVC, left axis. LABORATORY DATA: Hemoglobin 15.0, potassium 4.3, creatinine 2.1, magnesium 2.1. CK 299. Troponin less than 0.02. CK-MB 1.6. DIAGNOSES: 1. Atrial fibrillation with rapid ventricular response. 2. Physical deconditioning. 3. History of cerebrovascular accident with hemorrhagic conversion. 4. Hypertension. 5. Dyslipidemia, 6. Diabetes mellitus. 7. Obesity. PLAN: Mr. Hope will be monitored in telemetry. We will continue diltiazem and metoprolol. We will add Multaq. The patient has a history of Watchman device since he cannot be fully anticoagulated due to his previous history of intracranial bleeding. I will see him for cardiology during his hospitalization. I will see him back for followup in our office after discharge. MD GANESH Geller/MEGAN , 06:01 PM , 06:48 PM
[2017-10-07] MEDS ORDERED: TAMSULOSIN HCL 0.4 MG CAP PO SCH (21:00)
[2017-10-07] MEDS ORDERED: DRONEDARONE 400 MG TAB PO SCH (21:00)
[2017-10-08] VITALS: BP 157/82; PULSE 89; RESP 16; TEMP 98.2; O2SAT 97
[2017-10-08 01:00] VITALS: PULSE 95
[2017-10-08 01:46] LABS: BILIRUBIN, URINE NEG (NEG); BLOOD, URINE MOD (NEG); GLUCOSE,URINE 1000 mg/dL (NEG); KETONE, URINE NEG (NEG); MUCUS URINE MOD /lpf (OCC); NITRITE,URINE NEG (NEG); PH, URINE 5.5 (5.0-8.5); SQUAMOUS EPITHELIAL CELL URINE 1 /hpf (0-5); URINE COLOR YELLOW (YELLW/STRAW); URINE LEUKOCYTE ESTERASE NEG (NEG)
[2017-10-08 02:00] VITALS: PULSE 96
[2017-10-08 03:00] VITALS: PULSE 90
[2017-10-08 04:00] VITALS: BP 139/79; PULSE 93; RESP 18; TEMP 98; O2SAT 98
[2017-10-08] MEDS ORDERED: SODIUM CHLORID 0.9% 500 ML INJ 500 ML IV ONE ×2 (05:00→05:30)
[2017-10-08] MEDS ORDERED: EPINEPHrine HCL (1:1000) 1 MG/ML VIAL ONE ×2 (05:15→05:16)
[2017-10-08] MEDS ORDERED: SODIUM BICARBONATE 8.4% INJ 50 MEQ/50 ML SYR ONE (05:28)
[2017-10-08] MEDS ORDERED: ISOPROTERENOL INJ 2 MG in DEXTROSE 5% IN WATER INJ 250 ML IV PRN ×2 (05:30)
[2017-10-08] MEDS ORDERED: ATROPINE SULFATE 1 MG/10 ML SYRINGE ONE (05:30)
--- NOTE | 2017-10-08 05:54 | HHI.PR ---
Addendum to Inpatient Note Addendum Reason: Additional Documentation Additional Information CODE BLUE Initial Rhythm: Bradycardia followed by PEA Description of Code: I responded to overhead code blue page at 0535. CPR was initiated and conducted as per ACLS protocol. Patient remained in PEA during codes with two episodes of ROSC but pulse was lost within minutes after each code. Patient history notable for recent CVA. Pt was admitted for A fib with RVR, was on cardizem gtt at 10 prior to code. Other history noted DM, HL, HTN. HR was in 90s on gtt. Patient had just gotten up for restroom when he became unresponsive. VS were within normal limits just prior to code Total duration of CPR: Initial Code at 0435, ROSC approx 0445. Second code 0505 , ROSC 0513. Third code 0524, TOD 0538. Drugs: Epinephrine x 7 starting at time of initial code Calcium gluconate x 2 for hyperkalemia as potential etiology of cardiac arrest Sodium bicarb x 5 for treatment of acidosis Fluid bolus Atropine x 3 Pressors initiated epinephrine gtt at 0517, rate of 10 Transvenous pacing initiated after ROSC #2 but peripheral pulse not noted on Doppler, Code #3 called Magnesium 2mg given at 0537 Patient was transferred to CVICU from [facility] after first code Dr. Magallon attended code Intubation: Performed by respiratory therapist during first code Lines Placed: Peripheral lines used Result of Code: at 0538 Next of kin notified: Attempted to call Loretta Hope at [phone] [address] was driving to hospital and did not want to talk at that time. Primary attending notified: Yes: Dr. Canales aware, will be contacted when patient's at bedside Labs ordered: unable to obtain due to coding Phoebe Curiel MD Oct 08, 2017 05:54
--- NOTE | 2017-10-08 17:54 | EKG ---
Date Performed: 10/06/2017 Time Performed: 23:57:16 PTAGE: 82 years EKG: ATRIAL FIBRILLATION WITH RAPID VENTRICULAR RESPONSE WITH ABERRANT CONDUCTION OR VENTRICULAR PREMATURE COMPLEXES MARKED LEFT AXIS DEVIATION PATTERN CONSISTENT WITH PULMONARY DISEASE ABNORMAL EC G Compared to PREVIOUS TRACING , ventrcular response to the atrial fibrillation is much more rapid. Rig ht bundle branch. PVCs are also new. PREVIOUS TRACIN09/15/2017 01.50.18 DOCTOR: Yfn De Los Santos Interpretating Date/Time 10/08/2017 17:52:49
== END 2017-10-08 05:38 | disposition expired | DRG 309 ==
LOC: NEPC 23:57 → NEDA 10-07 02:17 → NEDH 10-07 06:35 → NEDA 10-07 17:18 → HCIS 10-07 18:14 → HCVI 10-08 05:01
PROVIDERS: ADMIT Hospitalist; ATTEND Hospitalist
PROC: 5A12012 Performance of Cardiac Output, Single, Manual (ICD-10-PCS; principal; 2017-10-08)
PROC: 0BH17EZ Insertion of Endotracheal Airway into Trachea, Via Natural or Artificial Opening (ICD-10-PCS; 2017-10-08)
DX: I48.91 Unspecified atrial fibrillation (principal); N17.9 Acute kidney failure, unspecified; I46.9 Cardiac arrest, cause unspecified; R00.1 Bradycardia, unspecified; E11.9 Type 2 diabetes mellitus without complications; G40.909 Epilepsy, unspecified, not intractable, without status epilepticus; Z86.73 Personal history of transient ischemic attack (TIA), and cerebral infarction without residual deficits; R54 Age-related physical debility; E78.5 Hyperlipidemia, unspecified; M47.9 Spondylosis, unspecified; I12.9 Hypertensive chronic kidney disease with stage 1 through stage 4 chronic kidney disease, or unspecified chronic kidney disease; N18.3 Chronic kidney disease, stage 3 (moderate); H91.90 Unspecified hearing loss, unspecified ear; E66.9 Obesity, unspecified; Z68.25 Body mass index [BMI] 25.0-25.9, adult
CPT/HCPCS: 31500; 71045; 80048; 81001; 82550; 82552; 82948; 83735; 84484; 85025; 85610; 85730; 92950; 93005; 96374; 99291; J0171; J0461; J1815; J7030